=== PATIENT | female | born 1955 | race Caucasian/White ===

== ENCOUNTER → 2020-06-11 14:47 | Outpatient (CLI) | payer MEDICARE, OTHER, SELFPAY ==
[2020-06-11 15:30] LABS: Bacteria Urine None Seen; RBC Urine None Seen (0-5/HPF)
[2020-06-11 16:32] LABS: Appearance Urine UA CLEAR; Bilirubin Urine UA NEGATIVE (NEGATIVE); Color Urine UA YELLOW; Glucose Urine UA NEGATIVE (Negative); Ketones Urine UA NEGATIVE (NEGATIVE); Leukocyte Esterase Urine UA NEGATIVE (NEGATIVE); Nitrite Urine UA NEGATIVE (Negative); Occult Blood Urine UA NEGATIVE (Negative); Protein Urine UA NEGATIVE (Negative); Urobilinogen Urine UA 0.2 E.U./dL (0.2)
[2020-06-11 16:45] LABS: Culture Indicated Urine Cult Not Indicated; Squamous Epithelial Cell Urine 0-1 /HPF (0-5/HPF); WBC Urine 0-1/HPF (0-5/HPF)
[2020-06-11 16:48] LABS: Add Manual Diff / Slide Review NO; Basophils Absolute Auto 100 /uL (0-100); Basophils Percent Auto 1.9 % (0-2); Eosinophils Absolute Auto 0 /uL (0-450); Eosinophils Percent Auto 0.7 % (2-4); Hematocrit 37.1 % (36-46); Hemoglobin 12.4 g/dL (12.0-16.0); Lymphocytes Absolute Auto 1000 /uL (1100-4500); Lymphocytes Percent Auto 18.6 % (25-40); Mean Corpuscular HGB Conc 33.6 % (30-36); Mean Corpuscular Hemoglobin 30.1 PG (26-34); Mean Corpuscular Volume 89.8 fL (80-100); Monocytes Absolute Auto 300 /uL (0-900); Monocytes Percent Auto 5.3 % (3-14); Neutrophils Absolute Auto 3900 /uL (1500-7000); Neutrophils Percent Auto 73.5 % (50-75); Platelet Count 188 X10^3/uL (150-400); Red Blood Cell Count 4.13 X10^6/uL (4.0-5.2); Red Cell Distribution Width 12.8 % (11.6-14.8); White Blood Cell Count 5.3 X10^3/uL (4.5-11.0)
[2020-06-11 17:28] LABS: Alanine Aminotransferase 22 IU/L (<35); Albumin 4.5 g/dL (3.5-5.0); Albumin Globulin Ratio 1.5 (1.0-2.8); Alkaline Phosphatase 52 U/L (38-126); Aspartate Aminotransferase 30 IU/L (14-36); BUN Creatinine Ratio 24.6 (6-22); Bilirubin Total 0.5 mg/dL (0.2-1.3); Blood Urea Nitrogen 16 mg/dL (7-17); Calcium 9.9 mg/dL (8.4-10.2); Carbon Dioxide 35 mmol/L (22-32); Chloride 103 mmol/L (98-107); Cholesterol 206 mg/dL (140-199); Estimated Glomerular Filt Rate > 60.0 mL/min (>60); Glucose 91 mg/dL (80-110); HDL Cholesterol 72 mg/dL (40-60); HEMOLYSIS < 15 (0-50); LDL Cholesterol Calculated 116 mg/dL (<100); Potassium 4.5 mmol/L (3.4-5.1); Sodium 139 mmol/L (137-145); Total Protein 7.5 g/dL (6.3-8.2); Triglycerides 89 mg/dL (35-150)
== END ==
PROVIDERS: PCP Family Medicine; Referring Provider Family Medicine; Visit Provider Family Medicine
DX: Z13.220 Encounter for screening for lipoid disorders (principal); G20 Parkinson's disease; R25.2 Cramp and spasm; R35.8 Other polyuria
CPT/HCPCS: 36415; 80053; 80061; 81001; 85025

== ENCOUNTER → 2020-07-17 15:05 | Outpatient (CLI) | payer MEDICARE, OTHER, SELFPAY ==
--- NOTE | 2020-07-17 15:07 | DI.MG.S_ITS ---
BILATERAL DIGITAL SCREENING MAMMOGRAM 3D/2D WITH CAD: 07/17/2020 CLINICAL: Routine screening. Comparison is made to exams dated: 05/19/2017 mammogram, 06/17/2018 mammogram, and 10/06/2014 mammogram - outside location. The tissue of both breasts is heterogeneously dense. This may lower the sensitivity of mammography. Current study was also evaluated with a Computer Aided Detection (CAD) system. No significant masses, calcifications, or other findings are seen in either breast. There has been no significant interval change. IMPRESSION: NEGATIVE There is no mammographic evidence of malignancy. A 1 year screening mammogram is recommended. This exam was interpreted at Station ID: [id number]. NOTE: For mammograms, a report in lay terms will be sent to the patient. Approximately 15% of breast malignancies will not be visualized mammographically. In the management of a palpable breast mass, a negative mammogram must not discourage biopsy of a clinically suspicious lesion. Electronically Signed By: Ki alicea/levi:07/17/2020 15:46:07 letter sent: Normal Exam ACR BI-RADS Category 1: Negative [id number]
== END ==
PROVIDERS: PCP Family Medicine; Referring Provider Family Medicine; Visit Provider Family Medicine
DX: Z12.31 Encounter for screening mammogram for malignant neoplasm of breast (principal); Z78.0 Asymptomatic menopausal state; Z82.62 Family history of osteoporosis
CPT/HCPCS: 77063; 77067; 77080

== ENCOUNTER → 2020-07-24 15:26 | Outpatient (CLI) | payer MEDICARE, OTHER, SELFPAY ==
[2020-07-24] MEDS: COVID-19 VACC #1, MRNA(MOD) 100 MCG/0.5 ML VIAL IM (15:34)
== END ==
PROVIDERS: PCP Family Medicine; Visit Provider Internal Medicine
DX: Z23 Encounter for immunization (principal)
CPT/HCPCS: 0011A; 91301

== ENCOUNTER → 2020-08-21 15:41 | Outpatient (CLI) | payer MEDICARE, OTHER, SELFPAY ==
[2020-08-21] MEDS: COVID-19 VACC #2, MRNA(MOD) 100 MCG/0.5 ML VIAL IM (15:47)
== END ==
PROVIDERS: PCP Family Medicine; Visit Provider Internal Medicine
DX: Z23 Encounter for immunization (principal)
CPT/HCPCS: 0012A; 91301

== ENCOUNTER 2020-09-06 14:15 | Outpatient (RCR) | payer MEDICARE, OTHER, SELFPAY ==
--- NOTE | 2020-07-30 15:48 | PT.OIE ---
Current Diagnoses Parkinson's disease (07/30/20) Past Medical History (Last Updated 07/23/20 @ 16:55 by Lindy Nolasco DO) Anemia Cataracts, bilateral (~2009) Chicken pox Chlamydia Chronic hip pain (~2013) Colon polyps (~1999) Gonorrhea Headache Hearing loss (~2009) Herpes History of urinary incontinence (~2017) Plantar warts Restless leg syndrome Salzmann nodular degeneration Sleep apnea Vertigo (~2018) Vision disorder Visit Care Team Role Provider Type Lindy Nolasco DO Primary Care Provider Physician Specialty: Family Practice Address: [address] [place] [address], [facility] [place], [address] Email: [email or web address] Anastasiya Patel DO Attending Provider Non-Staff Referring Provider Specialty: Psychiatry Address: [address] [place] [address], [id number] Email: Physical Therapy Initial Evaluation PT-OP-A Visit Information Start: 07/27/20 16:14 Freq: Status: Active Protocol: Document 07/30/20 14:27 MB (Rec: 07/30/20 14:23 MB [id number]) Out-Patient Physical Therapy Visit Information Visit Information Visit Type Initial Evaluation Visit Note Medicare, 19 visits before KX Visit Start Time 14:27 Visit Stop Time 15:19 Total Visit Minutes 52 Visit Number 1 Evaluation Information Evaluation Date 07/30/20 PT-OP-B Current Condition Start: 07/27/20 16:14 Freq: Status: Active Protocol: Document 07/30/20 14:27 MB (Rec: 07/30/20 14:23 MB [id number]) Current Condition History of Current Condition Onset Date 2014 Current Complaints Right arm tremor, imbalance, decreased mental clarity, moving slowly History of Current Condition 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 Pt reports first symptoms was right arm shaking when typing. She gets cold easily. She lists her initial symptoms of PD were tremors, gait, small handwriting, balance when tested. 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 She feels like she occ spins. Pt states that she gets a lot of neck tension because she is cold a lot. Pt reports left hip pain. Pt takes Carbidopa Levodopa 3x/day. She states that her medication decreases her tremor and helps with mind clarity. Pt lives with a house mate. She has two steps and 1 rail rail to enter. She likes walking for exercise. She does better if she has a destination or someone to walk with. She feels like she gets winded easily. She likes to hike occasionally. Pt has not had any falls. Treatment Goals Patient/Caregiver Goals Pt's goals for therapy include discovering exercises to keep PD at bay. Prior Functional Status Baseline Function- ADL's Independent Baseline Function- Mobility Independent PT-OP-C Subjective Start: 07/27/20 16:14 Freq: Status: Active Protocol: Document 07/30/20 14:27 MB (Rec: 07/30/20 14:44 MB [id number]) OP-PT Subjective Patient Comments Patient Comments See history of current condition PT-OP-D Balance Start: 07/27/20 16:14 Freq: Status: Active Protocol: Document 07/30/20 14:27 MB (Rec: 07/30/20 15:47 MB [id number]) Balance Tests Other Other Balance Tests Performed See below for balance testing today PT-OP-G Mobility & Gait Start: 07/27/20 16:14 Freq: Status: Active Protocol: Document 07/30/20 14:27 MB (Rec: 07/30/20 15:47 MB [id number]) OP Gait Assessment Gait Gait Assistance Required: Independent Distance (Feet) 1,574 Able to Maintain Weight Bearing Status Yes During Gait Assistive Devices Assistive Device None Orthotic/Prosthetic Devices or Brace: No Gait Deviations General Gait Pattern Decreased Stride Length Comments Gait Comments Pt presents with decreased stride length and right greater than left UE movement with gait. Her meagan slows with cognitive task PT-OP-M Strength Start: 07/27/20 16:14 Freq: Status: Active Protocol: Document 07/30/20 14:27 MB (Rec: 07/30/20 15:47 MB [id number]) Shoulder Strength Shoulder Manual Muscle Testing Left Flexion 5 Normal Abduction (C5) 5 Normal Right Flexion 5 Normal Abduction (C5) 5 Normal Elbow/Forearm Strength Elbow and Forearm Manual Muscle Testing Left Flexion (C6) 5 Normal Extension (C7) 5 Normal Right Flexion (C6) 5 Normal Extension (C7) 5 Normal Hip Strength Hip Manual Muscle Testing Left Flexion (L2) 5 Normal Comments Pt sitting Right Flexion (L2) 5 Normal Comments Pt sitting Knee Strength Knee Manual Muscle Testing Left Flexion (S2) 5 Normal Extension (L3) 5 Normal Right Flexion (S2) 5 Normal Extension (L3) 5 Normal Ankle/Foot Strength Ankle and Foot Manual Muscle Testing Left Dorsiflexion (L4) 5 Normal Right Dorsiflexion (L4) 5 Normal PT-OP-Q Treatments Start: 07/27/20 16:14 Freq: Status: Active Protocol: Document 07/30/20 14:27 MB (Rec: 07/30/20 14:23 MB [id number]) Gait Training Gait Activity 6MWT Comments Pt gait trains 1574 ft in 6', which is 262.33 ft per minute Pt gait trains 245 ft in 1' performing cognitive tasks of subtracting by 3s from 100 which is too hard, then subtracting 5s, too easy, then adding by 7 which is pretty easy for pt Pt gait trains 272 ft in 1' while holding cup of water in right hand. Did have to have pt take a sip d/t spilling at start Overall, looks like cognitive task and increased gait time are more challenging for gait speed Neuro Re-Education Treatment Balance Activities SLS and sit to stands Comments Romberg EO and EC at least 30 sec Tandem standing right behind 25 sec and left 2 sec SLS right 17 sec; left 25 sec Sit to stands without UE support in 30 sec: 19 Self-Care/Home Management Treatment Education Other Education Ed pt in BIG treatment course (16 one hour treatments) and team, homework of finding functional tasks to set as goals, exercise requirements for BIG, focus on amplitude and quality of movement and exercises PT-OP-T Assessment and Plan Start: 07/27/20 16:14 Freq: Status: Active Protocol: Document 07/30/20 14:27 MB (Rec: 07/30/20 14:23 MB [id number]) Physical Therapy Assessment Rehab Potential Rehabilitation Potential Good Evaluation Complexity Number of Personal Factors/Comorbidities 1-2 Number of Body Systems Impaired 1-2 Clinical Presentation at Evaluation Evolving Impairments Impairments Balance,Functional Activities, Functional Mobility,Gait, Posture Goals 4 Head Animal Trainer Goal (LTG) Pt will perform WNLs on a standardized balance test to decrease fall risk by 08/30/20. LTG Duration 16 treatments 3 Care Home Goal (LTG) Pt will perform BIG exercises and functional tasks BID with handouts and I to improve amplitude and quality of movement by 08/30/20. LTG Duration 16 treatments 2 Head Animal Trainer Goal (LTG) Pt will gait train at least 1600 feet in 6 minutes with cognitive task intermittently to improve gait speed and endurance by 08/30/20. LTG Duration 16 treatments 1 Head Animal Trainer Goal (LTG) Pt will perform at least 20 reps of sit to stands without UE support in 30 sec to improve functional transfers by 08/30/20. LTG Duration 16 treatments Assessment Summary Assessment Pt is a 64 y/o female presenting with over 6 year history of PD symptoms. Her biggest complaints are right UE tremor, decreased mental clarity, imbalance and slow gait. Pt also reports trouble opening tight jars. 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 She takes Carbidopa Levodopa TID with a dose at 1330. Her PT appointments will be from 141 -151. Pt reports occ dizziness and light-headedness . Orthostatic assessment: L UE supine: 132/69, 68; standing 100/67, 84; standing 1' 108/74 , 87. Pt presents with positive orthostasis and provided education and handouts to pt. Her gait speed is quick and with decreased stride length and right greater than left arm swing. Her gait speed is the same when carrying a cup of water with water 3/4 from the top of the cup. Her gait speed decreases with cognitive task and so pt will benefit from BIG walking with cognitive task. She presents with imbalance with balance testing and mild B shoulder weakness. Pt will benefit from BIG PT to improve postural flexibility, functional mobility and gait amplitude, and balance. Barriers include orthostasis. Pt is soft-spoken and states that she is not yet able to make her schedule work to do LOUD therapy but she is interested for this in the future. Physical Therapy Plan Frequency and Duration Frequency of Treatment 16 treatments Duration of Treatment 16 treatments Plan of Care Start Date 07/30/20 Plan of Care End Date 08/30/20 Therapeutic Interventions Therapeutic Interventions Balance Training,Canalithic Repositioning,Coordination Training,Gait Training,Home Exercise Program,Neuromuscular Re-education,Patient/ Caregiver Education,Self-Care/ Home Management,Sensory Integration,Therapeutic Activities,Therapeutic Exercises Modalities Cold Pack/Ice Massage,Hot Packs Next Visit Focus/Plan Next Note Type Treatment Note Next Visit Plan Initiate BIG exercises, check orthostatics as needed, come up with functional tasks to work on
--- NOTE | 2020-07-30 15:49 | PT.OPPOC ---
Physical, Occupational & Speech Therapy At [facility] Current Diagnoses Parkinson's disease (07/30/20) Visit Care Team Role Provider Type Lindy Nolasco DO Primary Care Provider Physician Specialty: Family Practice Address: [address] [place] [address], [facility], [place], [address] Email: [email or web address] Anastasiya Patel DO Attending Provider Non-Staff Referring Provider Specialty: Psychiatry Address: [address] [place] [address], [id number] Email: Plan Of Care PT-OP-T Assessment and Plan Start: 07/27/20 16:14 Freq: Status: Active Protocol: Document 07/30/20 14:27 MB (Rec: 07/30/20 14:23 MB [id number]) Physical Therapy Assessment Rehab Potential Rehabilitation Potential Good Evaluation Complexity Number of Personal Factors/Comorbidities 1-2 Number of Body Systems Impaired 1-2 Clinical Presentation at Evaluation Evolving Impairments Impairments Balance,Functional Activities, Functional Mobility,Gait, Posture Goals 4 Buckle Stapler Goal (LTG) Pt will perform WNLs on a standardized balance test to decrease fall risk by 08/30/20. LTG Duration 16 treatments 3 Snf Goal (LTG) Pt will perform BIG exercises and functional tasks BID with handouts and I to improve amplitude and quality of movement by 08/30/20. LTG Duration 16 treatments 2 Buckle Stapler Goal (LTG) Pt will gait train at least 1600 feet in 6 minutes with cognitive task intermittently to improve gait speed and endurance by 08/30/20. LTG Duration 16 treatments 1 Snf Goal (LTG) Pt will perform at least 20 reps of sit to stands without UE support in 30 sec to improve functional transfers by 08/30/20. LTG Duration 16 treatments Assessment Summary Assessment Pt is a 64 y/o female presenting with over 6 year history of PD symptoms. Her biggest complaints are right UE tremor, decreased mental clarity, imbalance and slow gait. Pt also reports trouble opening tight jars. 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 She takes Carbidopa Levodopa TID with a dose at 1330. Her PT appointments will be from 1415 -1515. Pt reports occ dizziness and light-headedness . Orthostatic assessment: L UE supine: 132/69, 68; standing 100/67, 84; standing 1' 108/74 , 87. Pt presents with positive orthostasis and provided education and handouts to pt. Her gait speed is quick and with decreased stride length and right greater than left arm swing. Her gait speed is the same when carrying a cup of water with water 3/4 from the top of the cup. Her gait speed decreases with cognitive task and so pt will benefit from BIG walking with cognitive task. She presents with imbalance with balance testing and mild B shoulder weakness. Pt will benefit from BIG PT to improve postural flexibility, functional mobility and gait amplitude, and balance. Barriers include orthostasis. Pt is soft-spoken and states that she is not yet able to make her schedule work to do LOUD therapy but she is interested for this in the future. Physical Therapy Plan Frequency and Duration Frequency of Treatment 16 treatments Duration of Treatment 16 treatments Plan of Care Start Date 07/30/20 Plan of Care End Date 08/30/20 Therapeutic Interventions Therapeutic Interventions Balance Training,Canalithic Repositioning,Coordination Training,Gait Training,Home Exercise Program,Neuromuscular Re-education,Patient/ Caregiver Education,Self-Care/ Home Management,Sensory Integration,Therapeutic Activities,Therapeutic Exercises Modalities Cold Pack/Ice Massage,Hot Packs Next Visit Focus/Plan Next Note Type Treatment Note Next Visit Plan Initiate BIG exercises, check orthostatics as needed, come up with functional tasks to work on Plan of Care Dates Plan of Care Start Date 07/30/20 Plan of Care End Date 08/30/20 Electronically Signed by: Rosalia Davila, PT 07/30/20 [id number] Please Sign and Return: I have reviewed this Plan of Care and certify that the skilled therapy services above are required to meet the patient?s needs. Physician Signature Date Printed Name and Credentials Clinical Instructor Signature Printed Name and Credentials
--- NOTE | 2020-07-31 15:26 | PT.OTN ---
Current Diagnoses Parkinson's disease (07/31/20) Physical Therapy Treatment Note PT-OP-A Visit Information Start: 07/27/20 16:14 Freq: Status: Active Protocol: Document 07/31/20 14:16 MB (Rec: 07/31/20 14:25 MB [id number]) Out-Patient Physical Therapy Visit Information Visit Information Visit Type Treatment Note Visit Note Medicare, 18 visits before KX Visit Start Time 14:16 Visit Stop Time 15:13 Total Visit Minutes 57 Visit Number 2 PT-OP-B Current Condition Start: 07/27/20 16:14 Freq: Status: Active Protocol: Document 07/30/20 14:27 MB (Rec: 07/30/20 14:23 MB [id number]) Current Condition History of Current Condition Onset Date 2014 Current Complaints Right arm tremor, imbalance, decreased mental clarity, moving slowly History of Current Condition 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 Pt reports first symptoms was right arm shaking when typing. She gets cold easily. She lists her initial symptoms of PD were tremors, gait, small handwriting, balance when tested. 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 She feels like she occ spins. Pt states that she gets a lot of neck tension because she is cold a lot. Pt reports left hip pain. Pt takes Carbidopa Levodopa 3x/day. She states that her medication decreases her tremor and helps with mind clarity. Pt lives with a house mate. She has two steps and 1 rail rail to enter. She likes walking for exercise. She does better if she has a destination or someone to walk with. She feels like she gets winded easily. She likes to hike occasionally. Pt has not had any falls. Treatment Goals Patient/Caregiver Goals Pt's goals for therapy include discovering exercises to keep PD at bay. Prior Functional Status Baseline Function- ADL's Independent Baseline Function- Mobility Independent PT-OP-C Subjective Start: 07/27/20 16:14 Freq: Status: Active Protocol: Document 07/31/20 14:16 MB (Rec: 07/31/20 14:25 MB [id number]) OP-PT Subjective Patient Comments Patient Comments Pt brings in functional tasks. PT-OP-D Balance Start: 07/27/20 16:14 Freq: Status: Active Protocol: Document 07/30/20 14:27 MB (Rec: 07/30/20 15:47 MB [id number]) Balance Tests Other Other Balance Tests Performed See below for balance testing today PT-OP-G Mobility & Gait Start: 07/27/20 16:14 Freq: Status: Active Protocol: Document 07/30/20 14:27 MB (Rec: 07/30/20 15:47 MB [id number]) OP Gait Assessment Gait Gait Assistance Required: Independent Distance (Feet) 1,574 Able to Maintain Weight Bearing Status Yes During Gait Assistive Devices Assistive Device None Orthotic/Prosthetic Devices or Brace: No Gait Deviations General Gait Pattern Decreased Stride Length Comments Gait Comments Pt presents with decreased stride length and right greater than left UE movement with gait. Her meagan slows with cognitive task PT-OP-M Strength Start: 07/27/20 16:14 Freq: Status: Active Protocol: Document 07/30/20 14:27 MB (Rec: 07/30/20 15:47 MB [id number]) Shoulder Strength Shoulder Manual Muscle Testing Left Flexion 5 Normal Abduction (C5) 5 Normal Right Flexion 5 Normal Abduction (C5) 5 Normal Elbow/Forearm Strength Elbow and Forearm Manual Muscle Testing Left Flexion (C6) 5 Normal Extension (C7) 5 Normal Right Flexion (C6) 5 Normal Extension (C7) 5 Normal Hip Strength Hip Manual Muscle Testing Left Flexion (L2) 5 Normal Comments Pt sitting Right Flexion (L2) 5 Normal Comments Pt sitting Knee Strength Knee Manual Muscle Testing Left Flexion (S2) 5 Normal Extension (L3) 5 Normal Right Flexion (S2) 5 Normal Extension (L3) 5 Normal Ankle/Foot Strength Ankle and Foot Manual Muscle Testing Left Dorsiflexion (L4) 5 Normal Right Dorsiflexion (L4) 5 Normal PT-OP-Q Treatments Start: 07/27/20 16:14 Freq: Status: Active Protocol: Document 07/31/20 14:16 MB (Rec: 07/31/20 15:26 MB [id number]) Therapeutic Exercises Sitting Exercises BIG sit to stands Equipment Used Pt sitting on mat in treatment room Reps/Minutes 6 reps Comments Cues for exercise and arm position Side to side Side bilateral Equipment Used Pt sitting on mat in treatment room Reps/Minutes 5 reps Comments Cues for BIG reach with right leg > left, BIG hands Forward reach Equipment Used Pt sitting on mat in treatment room Reps/Minutes 6 reps Comments Cues for form, BIG hands Standing Exercises Side rock and reach Side bilateral Reps/Minutes 5 reps Comments Most difficulty with this, cues for BIG chest, keep arms up and even, pivot Forward rock and reach Side bilateral Reps/Minutes 10 reps Comments Cues for BIG reach/arm swing, more difficult on the right Backward step Side bilateral Reps/Minutes 5 reps Comments Cues for all movements, BIG hands, BIG front toe, more difficult on right Side step Side bilateral Reps/Minutes 10 reps Comments Cues to look towards side stepping towards Forward step Side bilateral Reps/Minutes 10 reps Comments Cues to start BIG feet and finish BIG, tends to lack full step back Gait Training Gait Activity BIG walking Level of Assistance SBA Surface Pavement, parking lot, side walk, curb Distance/Duration 10' Treatment Focus BIG arm swing Comments Paused to practice BIG arm swing, pt tends to walk very stiff and robotic in nature when asked to make BIG steps and arm swings. She stops swinging her arms completely when she starts to talk. PT-OP-T Assessment and Plan Start: 07/27/20 16:14 Freq: Status: Active Protocol: Document 07/31/20 14:16 MB (Rec: 07/31/20 14:25 MB [id number]) Physical Therapy Assessment Rehab Potential Rehabilitation Potential Good Evaluation Complexity Number of Personal Factors/Comorbidities 1-2 Number of Body Systems Impaired 1-2 Clinical Presentation at Evaluation Evolving Impairments Impairments Balance,Functional Activities, Functional Mobility,Gait, Posture Goals 4 Organ Assembler Goal (LTG) Pt will perform WNLs on a standardized balance test to decrease fall risk by 08/30/20. LTG Duration 16 treatments 3 Alf Goal (LTG) Pt will perform BIG exercises and functional tasks BID with handouts and I to improve amplitude and quality of movement by 08/30/20. LTG Duration 16 treatments 2 Organ Assembler Goal (LTG) Pt will gait train at least 1600 feet in 6 minutes with cognitive task intermittently to improve gait speed and endurance by 08/30/20. LTG Duration 16 treatments 1 Organ Assembler Goal (LTG) Pt will perform at least 20 reps of sit to stands without UE support in 30 sec to improve functional transfers by 08/30/20. LTG Duration 16 treatments Assessment Summary Assessment Initiated BIG exercises and gait today. Pt presents with decreased BIG right leg with side to side sitting, decreased BIG right arm with swing with gait and rock and reach and has trouble with rock side to side. Initiate gait with assist of two sticks to improve BIG arm swing with gait next treatment date, perform BIG exercises and initiate functional tasks. Physical Therapy Plan Frequency and Duration Frequency of Treatment 16 treatments Duration of Treatment 16 treatments Plan of Care Start Date 07/30/20 Plan of Care End Date 08/30/20 Therapeutic Interventions Therapeutic Interventions Balance Training,Canalithic Repositioning,Coordination Training,Gait Training,Home Exercise Program,Neuromuscular Re-education,Patient/ Caregiver Education,Self-Care/ Home Management,Sensory Integration,Therapeutic Activities,Therapeutic Exercises Modalities Cold Pack/Ice Massage,Hot Packs Next Visit Focus/Plan Next Note Type Treatment Note Next Visit Plan Initiate gait with PT holding two sticks behind pt holding the sticks to improve arm swing with gait. Initiate functional tasks such as donning and doffing gloves, circular motions for bathing, chopping, flipping sheets and handwriting. Start BIG walking and check orthostatics as needed
--- NOTE | 2020-08-01 17:25 | PT.OTN ---
Current Diagnoses Parkinson's disease (08/01/20) Physical Therapy Treatment Note PT-OP-A Visit Information Start: 07/27/20 16:14 Freq: Status: Active Protocol: Document 08/01/20 17:14 AW (Rec: 08/01/20 17:25 AW [email or web address]) Out-Patient Physical Therapy Visit Information Visit Information Visit Type Treatment Note Visit Note Medicare, 17 visits before KX Visit Start Time 14:15 Visit Stop Time 15:15 Total Visit Minutes 60 Visit Number 3 Evaluation Information Evaluation Date 07/30/20 PT-OP-B Current Condition Start: 07/27/20 16:14 Freq: Status: Active Protocol: Document 07/30/20 14:27 MB (Rec: 07/30/20 14:23 MB [id number]) Current Condition History of Current Condition Onset Date 2014 Current Complaints Right arm tremor, imbalance, decreased mental clarity, moving slowly History of Current Condition 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 Pt reports first symptoms was right arm shaking when typing. She gets cold easily. She lists her initial symptoms of PD were tremors, gait, small handwriting, balance when tested. 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 She feels like she occ spins. Pt states that she gets a lot of neck tension because she is cold a lot. Pt reports left hip pain. Pt takes Carbidopa Levodopa 3x/day. She states that her medication decreases her tremor and helps with mind clarity. Pt lives with a house mate. She has two steps and 1 rail rail to enter. She likes walking for exercise. She does better if she has a destination or someone to walk with. She feels like she gets winded easily. She likes to hike occasionally. Pt has not had any falls. Treatment Goals Patient/Caregiver Goals Pt's goals for therapy include discovering exercises to keep PD at bay. Prior Functional Status Baseline Function- ADL's Independent Baseline Function- Mobility Independent PT-OP-C Subjective Start: 07/27/20 16:14 Freq: Status: Active Protocol: Document 08/01/20 17:14 AW (Rec: 08/01/20 17:25 AW [email or web address]) OP-PT Subjective Patient Comments Patient Comments I'm a little sore but I think that's a good thing. PT-OP-D Balance Start: 01/29/21 16:14 Freq: Status: Active Protocol: Document 07/30/20 14:27 MB (Rec: 07/30/20 15:47 MB [id number]) Balance Tests Other Other Balance Tests Performed See below for balance testing today PT-OP-G Mobility & Gait Start: 07/27/20 16:14 Freq: Status: Active Protocol: Document 07/30/20 14:27 MB (Rec: 07/30/20 15:47 MB [id number]) OP Gait Assessment Gait Gait Assistance Required: Independent Distance (Feet) 1,574 Able to Maintain Weight Bearing Status Yes During Gait Assistive Devices Assistive Device None Orthotic/Prosthetic Devices or Brace: No Gait Deviations General Gait Pattern Decreased Stride Length Comments Gait Comments Pt presents with decreased stride length and right greater than left UE movement with gait. Her meagan slows with cognitive task PT-OP-M Strength Start: 07/27/20 16:14 Freq: Status: Active Protocol: Document 07/30/20 14:27 MB (Rec: 07/30/20 15:47 MB [id number]) Shoulder Strength Shoulder Manual Muscle Testing Left Flexion 5 Normal Abduction (C5) 5 Normal Right Flexion 5 Normal Abduction (C5) 5 Normal Elbow/Forearm Strength Elbow and Forearm Manual Muscle Testing Left Flexion (C6) 5 Normal Extension (C7) 5 Normal Right Flexion (C6) 5 Normal Extension (C7) 5 Normal Hip Strength Hip Manual Muscle Testing Left Flexion (L2) 5 Normal Comments Pt sitting Right Flexion (L2) 5 Normal Comments Pt sitting Knee Strength Knee Manual Muscle Testing Left Flexion (S2) 5 Normal Extension (L3) 5 Normal Right Flexion (S2) 5 Normal Extension (L3) 5 Normal Ankle/Foot Strength Ankle and Foot Manual Muscle Testing Left Dorsiflexion (L4) 5 Normal Right Dorsiflexion (L4) 5 Normal PT-OP-Q Treatments Start: 07/27/20 16:14 Freq: Status: Active Protocol: Document 08/01/20 17:14 AW (Rec: 08/01/20 17:25 AW [email or web address]) Therapeutic Exercises Sitting Exercises BIG sit to stands Equipment Used large black tx table Reps/Minutes 6 reps x 3 Comments cues for BIG forward lean Side to side Side bilateral Equipment Used large black tx table Reps/Minutes 5 reps each side Comments cues for increased effort Forward reach Equipment Used large black tx table Reps/Minutes 10 reps Comments Cues for form, BIG hands Standing Exercises Side rock and reach Side bilateral Reps/Minutes 10 reps Comments cued for BIG open arms, chest up throughout Forward rock and reach Side bilateral Reps/Minutes 10 reps Comments cued for big arm as L lagged Backward step Side bilateral Reps/Minutes 5 reps Comments cued for BIG weight shift and bwd arm swing Side step Side bilateral Reps/Minutes 10 reps Comments cues to fully rotate back to start position Forward step Side bilateral Reps/Minutes 10 reps Comments Cues to start BIG feet and finish BIG, tends to lack full step back Gait Training Gait Activity BIG walking Level of Assistance SBA Surface Pavement, parking lot, side walk, curb Distance/Duration 20 min Treatment Focus BIG arm swing Comments Pt has functionally longer RLE and tends to vault over. She is able to produce bigger arm swing with frequent cueing but loses it with any change in surface or distraction. Used meter sticks behind as external cue for arm swing and pt able to replicate without sticks up to 100 feet. Self-Care/Home Management Treatment Education Other Education Educated pt on sensory mismatch between perceived movement and actual/produced movement. PT-OP-T Assessment and Plan Start: 07/27/20 16:14 Freq: Status: Active Protocol: Document 08/01/20 17:14 AW (Rec: 08/01/20 17:25 AW [email or web address]) Physical Therapy Assessment Rehab Potential Rehabilitation Potential Good Evaluation Complexity Number of Personal Factors/Comorbidities 1-2 Number of Body Systems Impaired 1-2 Clinical Presentation at Evaluation Evolving Impairments Impairments Balance,Functional Activities, Functional Mobility,Gait, Posture Goals 4 Intermediate Goal (LTG) Pt will perform WNLs on a standardized balance test to decrease fall risk by 08/30/20. LTG Duration 16 treatments 3 Pin Sticker Goal (LTG) Pt will perform BIG exercises and functional tasks BID with handouts and I to improve amplitude and quality of movement by 08/30/20. LTG Duration 16 treatments 2 Intermediate Goal (LTG) Pt will gait train at least 1600 feet in 6 minutes with cognitive task intermittently to improve gait speed and endurance by 08/30/20. LTG Duration 16 treatments 1 Pin Sticker Goal (LTG) Pt will perform at least 20 reps of sit to stands without UE support in 30 sec to improve functional transfers by 08/30/20. LTG Duration 16 treatments Assessment Summary Assessment Reviewed exercises today and observed unprompted self- correction in terms of posture or arm position on several occasions. Pt does show good stimulabilty but may require additional external cueing for gait training before fading cues for calibration. Physical Therapy Plan Frequency and Duration Frequency of Treatment 16 treatments Duration of Treatment 16 treatments Plan of Care Start Date 07/30/20 Plan of Care End Date 08/30/20 Therapeutic Interventions Therapeutic Interventions Balance Training,Canalithic Repositioning,Coordination Training,Gait Training,Home Exercise Program,Neuromuscular Re-education,Patient/ Caregiver Education,Self-Care/ Home Management,Sensory Integration,Therapeutic Activities,Therapeutic Exercises Modalities Cold Pack/Ice Massage,Hot Packs Next Visit Focus/Plan Next Note Type Treatment Note Next Visit Plan Initiate functional tasks such as donning and doffing gloves , circular motions for bathing , chopping, flipping sheets and handwriting. Start BIG walking and check orthostatics as needed
--- NOTE | 2020-08-02 15:30 | PT.OTN ---
Current Diagnoses Parkinson's disease (08/02/20) Physical Therapy Treatment Note PT-OP-A Visit Information Start: 07/27/20 16:14 Freq: Status: Active Protocol: Document 08/02/20 14:15 MB (Rec: 08/02/20 15:35 MB [id number]) Out-Patient Physical Therapy Visit Information Visit Information Visit Type Treatment Note Visit Note Medicare, 16 visits before KX Visit Start Time 14:15 Visit Stop Time 15:15 Total Visit Minutes 60 Visit Number 4 PT-OP-B Current Condition Start: 07/27/20 16:14 Freq: Status: Active Protocol: Document 07/30/20 14:27 MB (Rec: 07/30/20 14:23 MB [id number]) Current Condition History of Current Condition Onset Date 2014 Current Complaints Right arm tremor, imbalance, decreased mental clarity, moving slowly History of Current Condition 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 Pt reports first symptoms was right arm shaking when typing. She gets cold easily. She lists her initial symptoms of PD were tremors, gait, small handwriting, balance when tested. 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 She feels like she occ spins. Pt states that she gets a lot of neck tension because she is cold a lot. Pt reports left hip pain. Pt takes Carbidopa Levodopa 3x/day. She states that her medication decreases her tremor and helps with mind clarity. Pt lives with a house mate. She has two steps and 1 rail rail to enter. She likes walking for exercise. She does better if she has a destination or someone to walk with. She feels like she gets winded easily. She likes to hike occasionally. Pt has not had any falls. Treatment Goals Patient/Caregiver Goals Pt's goals for therapy include discovering exercises to keep PD at bay. Prior Functional Status Baseline Function- ADL's Independent Baseline Function- Mobility Independent PT-OP-C Subjective Start: 07/27/20 16:14 Freq: Status: Active Protocol: Document 08/02/20 14:15 MB (Rec: 08/02/20 15:35 MB [id number]) OP-PT Subjective Patient Comments Patient Comments Okay. Pt states that she hasn't watched the [employer] BIG video yet PT-OP-D Balance Start: 07/27/20 16:14 Freq: Status: Active Protocol: Document 07/30/20 14:27 MB (Rec: 07/30/20 15:47 MB [id number]) Balance Tests Other Other Balance Tests Performed See below for balance testing today PT-OP-G Mobility & Gait Start: 07/27/20 16:14 Freq: Status: Active Protocol: Document 07/30/20 14:27 MB (Rec: 07/30/20 15:47 MB [id number]) OP Gait Assessment Gait Gait Assistance Required: Independent Distance (Feet) 1,574 Able to Maintain Weight Bearing Status Yes During Gait Assistive Devices Assistive Device None Orthotic/Prosthetic Devices or Brace: No Gait Deviations General Gait Pattern Decreased Stride Length Comments Gait Comments Pt presents with decreased stride length and right greater than left UE movement with gait. Her meagan slows with cognitive task PT-OP-M Strength Start: 07/27/20 16:14 Freq: Status: Active Protocol: Document 07/30/20 14:27 MB (Rec: 07/30/20 15:47 MB [id number]) Shoulder Strength Shoulder Manual Muscle Testing Left Flexion 5 Normal Abduction (C5) 5 Normal Right Flexion 5 Normal Abduction (C5) 5 Normal Elbow/Forearm Strength Elbow and Forearm Manual Muscle Testing Left Flexion (C6) 5 Normal Extension (C7) 5 Normal Right Flexion (C6) 5 Normal Extension (C7) 5 Normal Hip Strength Hip Manual Muscle Testing Left Flexion (L2) 5 Normal Comments Pt sitting Right Flexion (L2) 5 Normal Comments Pt sitting Knee Strength Knee Manual Muscle Testing Left Flexion (S2) 5 Normal Extension (L3) 5 Normal Right Flexion (S2) 5 Normal Extension (L3) 5 Normal Ankle/Foot Strength Ankle and Foot Manual Muscle Testing Left Dorsiflexion (L4) 5 Normal Right Dorsiflexion (L4) 5 Normal PT-OP-Q Treatments Start: 07/27/20 16:14 Freq: Status: Active Protocol: Document 08/02/20 14:15 MB (Rec: 08/02/20 15:35 MB [id number]) Therapeutic Exercises Sitting Exercises Side to side Side bilateral Equipment Used Treatment table in room Reps/Minutes 10 to each side, alternating Comments cues for BIG hands, fingers and right leg Forward reach Equipment Used Treatment table in room Reps/Minutes 10 reps Comments Cues to count LOUD each exercise number and then count LOUD Standing Exercises Side rock and reach Side bilateral Reps/Minutes 10 reps Comments Cues for BIG movement Forward rock and reach Side bilateral Reps/Minutes 10 reps Comments Cues to start BIG stance, BIG right arm Backward step Side bilateral Reps/Minutes 10 reps Comments Cues for BIG front toe Side step Side bilateral Reps/Minutes 10 reps Comments Cues to look towards direction standing Forward step Side bilateral Reps/Minutes 10 reps Comments Cues for BIG stance Therapeutic Activity Therapeutic Activity Making top sheet of bed on small mat table Reps/Minutes 5 minutes Comments PT demonstrates BIG movements, BIG steps from head of mat to foot of mat. Pt performs many reps with the following speeds: 10 sec, 9 sec, 14 sec (sheet not flat), 9 sec, 13 sec. Cues for BIG shake and BIG corners Wax on, wax off Reps/Minutes 2 minutes Comments Pt reports trouble washing stomach, circular motions. She has no trouble demonstrating this on self or on the wall today. She then describes using long handled scrubber. She may bring in for practice Donning and doffing gloves Reps/Minutes 5 minutes Comments Pt standing, cues for her to hold both gloves (she tends to want to have one resting on table). PT demonstrates BIG donning and doffing. She presents with the following times recorded for reps of donning and doffing both gloves: 14 sec, 14 sec, 11 sec , 10 sec, 10 sec, 10 sec, 10 sec. Improvement with repetitions Gait Training Gait Activity BIG walking Level of Assistance Superv and cues Surface Kimber and carpet Distance/Duration 15' Treatment Focus BIG arm swing, amy right Comments Pt presents with functional leg length difference. She responds better to PT holding yard sticks in front of her and she holding behind PT compared to pt being in front. She increases B arm extension as she pulls back on the yard sticks with therapist resisting in front. Pt is able to carryover larger arm swing after this training. She does con't to decrease arm swing when she talks with gait PT-OP-T Assessment and Plan Start: 07/27/20 16:14 Freq: Status: Active Protocol: Document 08/02/20 14:15 MB (Rec: 08/02/20 15:35 MB [id number]) Physical Therapy Assessment Rehab Potential Rehabilitation Potential Good Evaluation Complexity Number of Personal Factors/Comorbidities 1-2 Number of Body Systems Impaired 1-2 Clinical Presentation at Evaluation Evolving Impairments Impairments Balance,Functional Activities, Functional Mobility,Gait, Posture Goals 4 Balance Assembler Goal (LTG) Pt will perform WNLs on a standardized balance test to decrease fall risk by 08/30/20. LTG Duration 16 treatments 3 Retirement Goal (LTG) Pt will perform BIG exercises and functional tasks BID with handouts and I to improve amplitude and quality of movement by 08/30/20. LTG Duration 16 treatments 2 Balance Assembler Goal (LTG) Pt will gait train at least 1600 feet in 6 minutes with cognitive task intermittently to improve gait speed and endurance by 08/30/20. LTG Duration 16 treatments 1 Retirement Goal (LTG) Pt will perform at least 20 reps of sit to stands without UE support in 30 sec to improve functional transfers by 08/30/20. LTG Duration 16 treatments Assessment Summary Assessment Pt with improved awareness of BIG movement today and she is LOUDer with counting out loud for exercises. She does require cues for form and for BIG right arm with gait. She has better carryover once used yard sticks to provide tactile cues for arm swing with gait. Con't gait and functional activity progression. Alternating exercises seems to be difficult for pt today. Physical Therapy Plan Frequency and Duration Frequency of Treatment 16 treatments Duration of Treatment 16 treatments Plan of Care Start Date 07/30/20 Plan of Care End Date 08/30/20 Therapeutic Interventions Therapeutic Interventions Balance Training,Canalithic Repositioning,Coordination Training,Gait Training,Home Exercise Program,Neuromuscular Re-education,Patient/ Caregiver Education,Self-Care/ Home Management,Sensory Integration,Therapeutic Activities,Therapeutic Exercises Modalities Cold Pack/Ice Massage,Hot Packs Next Visit Focus/Plan Next Note Type Treatment Note Next Visit Plan Con't functional tasks donning and doffing gloves, circular motions for bathing, chopping, flipping sheets (perform on bigger mat) and handwriting. Check orthostatics as needed
--- NOTE | 2020-08-02 15:35 | PT.OTN ---
Current Diagnoses Parkinson's disease (08/02/20) Physical Therapy Treatment Note PT-OP-A Visit Information Start: 07/27/20 16:14 Freq: Status: Active Protocol: Document 08/02/20 14:15 MB (Rec: 08/02/20 15:35 MB [id number]) Out-Patient Physical Therapy Visit Information Visit Information Visit Type Treatment Note Visit Note Medicare, 16 visits before KX Visit Start Time 14:15 Visit Stop Time 15:15 Total Visit Minutes 60 Visit Number 4 PT-OP-B Current Condition Start: 07/27/20 16:14 Freq: Status: Active Protocol: Document 07/30/20 14:27 MB (Rec: 07/30/20 14:23 MB [id number]) Current Condition History of Current Condition Onset Date 2014 Current Complaints Right arm tremor, imbalance, decreased mental clarity, moving slowly History of Current Condition 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 Pt reports first symptoms was right arm shaking when typing. She gets cold easily. She lists her initial symptoms of PD were tremors, gait, small handwriting, balance when tested. 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 She feels like she occ spins. Pt states that she gets a lot of neck tension because she is cold a lot. Pt reports left hip pain. Pt takes Carbidopa Levodopa 3x/day. She states that her medication decreases her tremor and helps with mind clarity. Pt lives with a house mate. She has two steps and 1 rail rail to enter. She likes walking for exercise. She does better if she has a destination or someone to walk with. She feels like she gets winded easily. She likes to hike occasionally. Pt has not had any falls. Treatment Goals Patient/Caregiver Goals Pt's goals for therapy include discovering exercises to keep PD at bay. Prior Functional Status Baseline Function- ADL's Independent Baseline Function- Mobility Independent PT-OP-C Subjective Start: 07/27/20 16:14 Freq: Status: Active Protocol: Document 08/02/20 14:15 MB (Rec: 08/02/20 15:35 MB [id number]) OP-PT Subjective Patient Comments Patient Comments Okay. Pt states that she hasn't watched the [employer] BIG video yet PT-OP-D Balance Start: 07/27/20 16:14 Freq: Status: Active Protocol: Document 07/30/20 14:27 MB (Rec: 07/30/20 15:47 MB [id number]) Balance Tests Other Other Balance Tests Performed See below for balance testing today PT-OP-G Mobility & Gait Start: 07/27/20 16:14 Freq: Status: Active Protocol: Document 07/30/20 14:27 MB (Rec: 07/30/20 15:47 MB [id number]) OP Gait Assessment Gait Gait Assistance Required: Independent Distance (Feet) 1,574 Able to Maintain Weight Bearing Status Yes During Gait Assistive Devices Assistive Device None Orthotic/Prosthetic Devices or Brace: No Gait Deviations General Gait Pattern Decreased Stride Length Comments Gait Comments Pt presents with decreased stride length and right greater than left UE movement with gait. Her meagan slows with cognitive task PT-OP-M Strength Start: 07/27/20 16:14 Freq: Status: Active Protocol: Document 07/30/20 14:27 MB (Rec: 07/30/20 15:47 MB [id number]) Shoulder Strength Shoulder Manual Muscle Testing Left Flexion 5 Normal Abduction (C5) 5 Normal Right Flexion 5 Normal Abduction (C5) 5 Normal Elbow/Forearm Strength Elbow and Forearm Manual Muscle Testing Left Flexion (C6) 5 Normal Extension (C7) 5 Normal Right Flexion (C6) 5 Normal Extension (C7) 5 Normal Hip Strength Hip Manual Muscle Testing Left Flexion (L2) 5 Normal Comments Pt sitting Right Flexion (L2) 5 Normal Comments Pt sitting Knee Strength Knee Manual Muscle Testing Left Flexion (S2) 5 Normal Extension (L3) 5 Normal Right Flexion (S2) 5 Normal Extension (L3) 5 Normal Ankle/Foot Strength Ankle and Foot Manual Muscle Testing Left Dorsiflexion (L4) 5 Normal Right Dorsiflexion (L4) 5 Normal PT-OP-Q Treatments Start: 07/27/20 16:14 Freq: Status: Active Protocol: Document 08/02/20 14:15 MB (Rec: 08/02/20 15:35 MB [id number]) Therapeutic Exercises Sitting Exercises Side to side Side bilateral Equipment Used Treatment table in room Reps/Minutes 10 to each side, alternating Comments cues for BIG hands, fingers and right leg Forward reach Equipment Used Treatment table in room Reps/Minutes 10 reps Comments Cues to count LOUD each exercise number and then count LOUD Standing Exercises Side rock and reach Side bilateral Reps/Minutes 10 reps Comments Cues for BIG movement Forward rock and reach Side bilateral Reps/Minutes 10 reps Comments Cues to start BIG stance, BIG right arm Backward step Side bilateral Reps/Minutes 10 reps Comments Cues for BIG front toe Side step Side bilateral Reps/Minutes 10 reps Comments Cues to look towards direction standing Forward step Side bilateral Reps/Minutes 10 reps Comments Cues for BIG stance Therapeutic Activity Therapeutic Activity Making top sheet of bed on small mat table Reps/Minutes 5 minutes Comments PT demonstrates BIG movements, BIG steps from head of mat to foot of mat. Pt performs many reps with the following speeds: 10 sec, 9 sec, 14 sec (sheet not flat), 9 sec, 13 sec. Cues for BIG shake and BIG corners Wax on, wax off Reps/Minutes 2 minutes Comments Pt reports trouble washing stomach, circular motions. She has no trouble demonstrating this on self or on the wall today. She then describes using long handled scrubber. She may bring in for practice Donning and doffing gloves Reps/Minutes 5 minutes Comments Pt standing, cues for her to hold both gloves (she tends to want to have one resting on table). PT demonstrates BIG donning and doffing. She presents with the following times recorded for reps of donning and doffing both gloves: 14 sec, 14 sec, 11 sec , 10 sec, 10 sec, 10 sec, 10 sec. Improvement with repetitions Gait Training Gait Activity BIG walking Level of Assistance Superv and cues Surface Kimber and carpet Distance/Duration 15' Treatment Focus BIG arm swing, amy right Comments Pt presents with functional leg length difference. She responds better to PT holding yard sticks in front of her and she holding behind PT compared to pt being in front. She increases B arm extension as she pulls back on the yard sticks with therapist resisting in front. Pt is able to carryover larger arm swing after this training. She does con't to decrease arm swing when she talks with gait Self-Care/Home Management Treatment Education Other Education Educated pt on sensory mismatch between perceived movement and actual/produced movement. PT-OP-T Assessment and Plan Start: 07/27/20 16:14 Freq: Status: Active Protocol: Document 08/02/20 14:15 MB (Rec: 08/02/20 15:35 MB [id number]) Physical Therapy Assessment Rehab Potential Rehabilitation Potential Good Evaluation Complexity Number of Personal Factors/Comorbidities 1-2 Number of Body Systems Impaired 1-2 Clinical Presentation at Evaluation Evolving Impairments Impairments Balance,Functional Activities, Functional Mobility,Gait, Posture Goals 4 Property Management Assistant Goal (LTG) Pt will perform WNLs on a standardized balance test to decrease fall risk by 08/30/20. LTG Duration 16 treatments 3 Property Management Assistant Goal (LTG) Pt will perform BIG exercises and functional tasks BID with handouts and I to improve amplitude and quality of movement by 08/30/20. LTG Duration 16 treatments 2 Assisted Goal (LTG) Pt will gait train at least 1600 feet in 6 minutes with cognitive task intermittently to improve gait speed and endurance by 08/30/20. LTG Duration 16 treatments 1 Assisted Goal (LTG) Pt will perform at least 20 reps of sit to stands without UE support in 30 sec to improve functional transfers by 08/30/20. LTG Duration 16 treatments Assessment Summary Assessment Pt with improved awareness of BIG movement today and she is LOUDer with counting out loud for exercises. She does require cues for form and for BIG right arm with gait. She has better carryover once used yard sticks to provide tactile cues for arm swing with gait. Con't gait and functional activity progression. Alternating exercises seems to be difficult for pt today. Physical Therapy Plan Frequency and Duration Frequency of Treatment 16 treatments Duration of Treatment 16 treatments Plan of Care Start Date 07/30/20 Plan of Care End Date 08/30/20 Therapeutic Interventions Therapeutic Interventions Balance Training,Canalithic Repositioning,Coordination Training,Gait Training,Home Exercise Program,Neuromuscular Re-education,Patient/ Caregiver Education,Self-Care/ Home Management,Sensory Integration,Therapeutic Activities,Therapeutic Exercises Modalities Cold Pack/Ice Massage,Hot Packs Next Visit Focus/Plan Next Note Type Treatment Note Next Visit Plan Con't functional tasks donning and doffing gloves, circular motions for bathing, chopping, flipping sheets (perform on bigger mat) and handwriting. Check orthostatics as needed
--- NOTE | 2020-08-03 07:22 | PT-OP ANOTE ---
PT calls pt to follow-up on her statement about leg muscles seizing at night. Encouraged pt to stay up on her water intake and fruit. Recommended that she follow-up with her pharmacist/doctor about magnesium, vitamin D3 and electrolytes. Pt states she will do so and note any changes in muscles seizing now that she is exercising and walking more with BIG therapy.
--- NOTE | 2020-08-06 15:34 | PT.OTN ---
Current Diagnoses Parkinson's disease (08/06/20) Physical Therapy Treatment Note PT-OP-A Visit Information Start: 07/27/20 16:14 Freq: Status: Active Protocol: Document 08/06/20 14:15 MB (Rec: 08/06/20 15:27 MB [id number]) Out-Patient Physical Therapy Visit Information Visit Information Visit Type Treatment Note Visit Note Medicare, 14 visits before KX Visit Start Time 14:15 Visit Stop Time 15:15 Total Visit Minutes 60 Visit Number 5 PT-OP-B Current Condition Start: 07/27/20 16:14 Freq: Status: Active Protocol: Document 07/30/20 14:27 MB (Rec: 07/30/20 14:23 MB [id number]) Current Condition History of Current Condition Onset Date 2014 Current Complaints Right arm tremor, imbalance, decreased mental clarity, moving slowly History of Current Condition 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 Pt reports first symptoms was right arm shaking when typing. She gets cold easily. She lists her initial symptoms of PD were tremors, gait, small handwriting, balance when tested. 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 She feels like she occ spins. Pt states that she gets a lot of neck tension because she is cold a lot. Pt reports left hip pain. Pt takes Carbidopa Levodopa 3x/day. She states that her medication decreases her tremor and helps with mind clarity. Pt lives with a house mate. She has two steps and 1 rail rail to enter. She likes walking for exercise. She does better if she has a destination or someone to walk with. She feels like she gets winded easily. She likes to hike occasionally. Pt has not had any falls. Treatment Goals Patient/Caregiver Goals Pt's goals for therapy include discovering exercises to keep PD at bay. Prior Functional Status Baseline Function- ADL's Independent Baseline Function- Mobility Independent PT-OP-C Subjective Start: 07/27/20 16:14 Freq: Status: Active Protocol: Document 08/06/20 14:15 MB (Rec: 08/06/20 15:27 MB [id number]) OP-PT Subjective Patient Comments Patient Comments I have your voice in my head when I walk from the [facility]. Pt states that she is thinking about walking BIGger and watched [employer] video. She performed her BIG HEP. PT-OP-D Balance Start: 07/27/20 16:14 Freq: Status: Active Protocol: Document 07/30/20 14:27 MB (Rec: 07/30/20 15:47 MB [id number]) Balance Tests Other Other Balance Tests Performed See below for balance testing today PT-OP-G Mobility & Gait Start: 07/27/20 16:14 Freq: Status: Active Protocol: Document 07/30/20 14:27 MB (Rec: 07/30/20 15:47 MB [id number]) OP Gait Assessment Gait Gait Assistance Required: Independent Distance (Feet) 1,574 Able to Maintain Weight Bearing Status Yes During Gait Assistive Devices Assistive Device None Orthotic/Prosthetic Devices or Brace: No Gait Deviations General Gait Pattern Decreased Stride Length Comments Gait Comments Pt presents with decreased stride length and right greater than left UE movement with gait. Her meagan slows with cognitive task PT-OP-M Strength Start: 07/27/20 16:14 Freq: Status: Active Protocol: Document 07/30/20 14:27 MB (Rec: 07/30/20 15:47 MB [id number]) Shoulder Strength Shoulder Manual Muscle Testing Left Flexion 5 Normal Abduction (C5) 5 Normal Right Flexion 5 Normal Abduction (C5) 5 Normal Elbow/Forearm Strength Elbow and Forearm Manual Muscle Testing Left Flexion (C6) 5 Normal Extension (C7) 5 Normal Right Flexion (C6) 5 Normal Extension (C7) 5 Normal Hip Strength Hip Manual Muscle Testing Left Flexion (L2) 5 Normal Comments Pt sitting Right Flexion (L2) 5 Normal Comments Pt sitting Knee Strength Knee Manual Muscle Testing Left Flexion (S2) 5 Normal Extension (L3) 5 Normal Right Flexion (S2) 5 Normal Extension (L3) 5 Normal Ankle/Foot Strength Ankle and Foot Manual Muscle Testing Left Dorsiflexion (L4) 5 Normal Right Dorsiflexion (L4) 5 Normal PT-OP-Q Treatments Start: 07/27/20 16:14 Freq: Status: Active Protocol: Document 08/06/20 14:15 MB (Rec: 08/06/20 15:27 MB [id number]) Therapeutic Exercises Sitting Exercises BIG sit to stands Equipment Used Treatment table in room Reps/Minutes 10 reps Comments Cues for counting and BIG fingers Side to side Side bilateral Equipment Used Treatment table in room Reps/Minutes 10 to each side, alternating Comments cues for BIG hands and right leg Forward reach Equipment Used Treatment table in room Reps/Minutes 10 reps Comments Cues to count LOUD Standing Exercises Side rock and reach Side bilateral Reps/Minutes 10 reps Comments Cues for BIG movement, arms out to side Forward rock and reach Side bilateral Reps/Minutes 10 reps Comments Pt performs well today, BIG arms Backward step Side bilateral Reps/Minutes 10 reps Comments Cues for BIG front toe, BIG hands, arm movement Side step Side bilateral Reps/Minutes 10 reps Comments Alternating, count to 20 Forward step Side bilateral Reps/Minutes 10 reps Comments Cues for BIG stance, alternating, cound to 20 Therapeutic Activity Therapeutic Activity Making top sheet of bed on small mat table Name Bariatric mat in gym Reps/Minutes 3 minutes Comments 12 sec, 8 sec, 10 sec, 6 sec and 12 sec. Pt steps bigger, moves bigger Donning and doffing gloves Reps/Minutes 5 minutes Comments Improved today, performs holding both gloves: 9 sec, 10 sec, one rep where glove is not opened, 10 sec, 11 sec Gait Training Gait Activity BIG walking Level of Assistance Superv and cues Surface Sidewalk, pavement, curb Distance/Duration 13' Treatment Focus BIG arm swing B, amy right Comments Ongoing difficulty with BIG arm swing, needs most work on shoulder extension PT-OP-T Assessment and Plan Start: 07/27/20 16:14 Freq: Status: Active Protocol: Document 08/06/20 14:15 MB (Rec: 08/06/20 15:27 MB [id number]) Physical Therapy Assessment Rehab Potential Rehabilitation Potential Good Evaluation Complexity Number of Personal Factors/Comorbidities 1-2 Number of Body Systems Impaired 1-2 Clinical Presentation at Evaluation Evolving Impairments Impairments Balance,Functional Activities, Functional Mobility,Gait, Posture Goals 4 Director Of Informatics Goal (LTG) Pt will perform WNLs on a standardized balance test to decrease fall risk by 08/30/20. LTG Duration 16 treatments 3 Director Of Informatics Goal (LTG) Pt will perform BIG exercises and functional tasks BID with handouts and I to improve amplitude and quality of movement by 08/30/20. LTG Duration 16 treatments 2 Fpc Goal (LTG) Pt will gait train at least 1600 feet in 6 minutes with cognitive task intermittently to improve gait speed and endurance by 08/30/20. LTG Duration 16 treatments 1 Fpc Goal (LTG) Pt will perform at least 20 reps of sit to stands without UE support in 30 sec to improve functional transfers by 08/30/20. LTG Duration 16 treatments Assessment Summary Assessment Progressed BIG exercises to alternating side step and foward step. Pt has trouble with BIG form when trying to alternate for backward step and so not performed alternating today. Ongoing difficulty with BIG arm extension with gait that worsens with talking, con't to work on. Progress balance activities with gait in future treatments and other challenges as listed under next treatment date. Physical Therapy Plan Frequency and Duration Frequency of Treatment 16 treatments Duration of Treatment 16 treatments Plan of Care Start Date 07/30/20 Plan of Care End Date 08/30/20 Therapeutic Interventions Therapeutic Interventions Balance Training,Canalithic Repositioning,Coordination Training,Gait Training,Home Exercise Program,Neuromuscular Re-education,Patient/ Caregiver Education,Self-Care/ Home Management,Sensory Integration,Therapeutic Activities,Therapeutic Exercises Modalities Cold Pack/Ice Massage,Hot Packs Next Visit Focus/Plan Next Note Type Treatment Note Next Visit Plan Consider adding flicks and ankle weights (may try 1lb wrist weights for arm swing). Con't functional tasks including chopping, flipping sheets (perform on bigger mat and use fitted sheet) and handwriting. Check orthostatics as needed
--- NOTE | 2020-08-07 15:34 | PT.OTN ---
Current Diagnoses Parkinson's disease (08/07/20) Physical Therapy Treatment Note PT-OP-A Visit Information Start: 07/27/20 16:14 Freq: Status: Active Protocol: Document 08/07/20 14:17 MB (Rec: 08/07/20 15:34 MB [id number]) Out-Patient Physical Therapy Visit Information Visit Information Visit Type Treatment Note Visit Note Medicare, 13 visits before KX Visit Start Time 14:17 Visit Stop Time 16:17 Total Visit Minutes 60 Visit Number 6 PT-OP-B Current Condition Start: 07/27/20 16:14 Freq: Status: Active Protocol: Document 07/30/20 14:27 MB (Rec: 07/30/20 14:23 MB [id number]) Current Condition History of Current Condition Onset Date 2014 Current Complaints Right arm tremor, imbalance, decreased mental clarity, moving slowly History of Current Condition 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 Pt reports first symptoms was right arm shaking when typing. She gets cold easily. She lists her initial symptoms of PD were tremors, gait, small handwriting, balance when tested. 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 She feels like she occ spins. Pt states that she gets a lot of neck tension because she is cold a lot. Pt reports left hip pain. Pt takes Carbidopa Levodopa 3x/day. She states that her medication decreases her tremor and helps with mind clarity. Pt lives with a house mate. She has two steps and 1 rail rail to enter. She likes walking for exercise. She does better if she has a destination or someone to walk with. She feels like she gets winded easily. She likes to hike occasionally. Pt has not had any falls. Treatment Goals Patient/Caregiver Goals Pt's goals for therapy include discovering exercises to keep PD at bay. Prior Functional Status Baseline Function- ADL's Independent Baseline Function- Mobility Independent PT-OP-C Subjective Start: 07/27/20 16:14 Freq: Status: Active Protocol: Document 08/07/20 14:17 MB (Rec: 08/07/20 15:34 MB [id number]) OP-PT Subjective Patient Comments Patient Comments My neck and shoulders can feel that they're working. PT-OP-D Balance Start: 07/27/20 16:14 Freq: Status: Active Protocol: Document 07/30/20 14:27 MB (Rec: 07/30/20 15:47 MB [id number]) Balance Tests Other Other Balance Tests Performed See below for balance testing today PT-OP-G Mobility & Gait Start: 07/27/20 16:14 Freq: Status: Active Protocol: Document 07/30/20 14:27 MB (Rec: 07/30/20 15:47 MB [id number]) OP Gait Assessment Gait Gait Assistance Required: Independent Distance (Feet) 1,574 Able to Maintain Weight Bearing Status Yes During Gait Assistive Devices Assistive Device None Orthotic/Prosthetic Devices or Brace: No Gait Deviations General Gait Pattern Decreased Stride Length Comments Gait Comments Pt presents with decreased stride length and right greater than left UE movement with gait. Her meagan slows with cognitive task PT-OP-M Strength Start: 07/27/20 16:14 Freq: Status: Active Protocol: Document 07/30/20 14:27 MB (Rec: 07/30/20 15:47 MB [id number]) Shoulder Strength Shoulder Manual Muscle Testing Left Flexion 5 Normal Abduction (C5) 5 Normal Right Flexion 5 Normal Abduction (C5) 5 Normal Elbow/Forearm Strength Elbow and Forearm Manual Muscle Testing Left Flexion (C6) 5 Normal Extension (C7) 5 Normal Right Flexion (C6) 5 Normal Extension (C7) 5 Normal Hip Strength Hip Manual Muscle Testing Left Flexion (L2) 5 Normal Comments Pt sitting Right Flexion (L2) 5 Normal Comments Pt sitting Knee Strength Knee Manual Muscle Testing Left Flexion (S2) 5 Normal Extension (L3) 5 Normal Right Flexion (S2) 5 Normal Extension (L3) 5 Normal Ankle/Foot Strength Ankle and Foot Manual Muscle Testing Left Dorsiflexion (L4) 5 Normal Right Dorsiflexion (L4) 5 Normal PT-OP-Q Treatments Start: 07/27/20 16:14 Freq: Status: Active Protocol: Document 08/07/20 14:17 MB (Rec: 08/07/20 15:34 MB [id number]) Therapeutic Exercises Sitting Exercises BIG sit to stands Equipment Used Treatment table in room Reps/Minutes 10 reps Comments Improved counting today Side to side Side bilateral Equipment Used Treatment table in room Reps/Minutes 5 to each side, alternating Comments cues for BIG hands and right leg Forward reach Equipment Used Treatment table in room Reps/Minutes 5 reps Comments Cues to count LOUD and big fingers Standing Exercises Use of racquet ball for intrascapular and upper traps STM Comments Ed pt use of racquet ball in sock for massage these two areas, handout Side rock and reach Side bilateral Reps/Minutes 10 reps Comments Cues for BIG movement, arms out to side Forward rock and reach Side bilateral Reps/Minutes 10 reps Comments Pt performs well today, BIG arms Backward step Side bilateral Reps/Minutes 10 reps Comments Cues for hand placement occ Side step Side bilateral Reps/Minutes 10 reps Comments Alternating, count to 20 Forward step Side bilateral Reps/Minutes 10 reps Comments Alternating, pt performs well, counts well Therapeutic Activity Therapeutic Activity Making top sheet of bed on small mat table Name Small mat in gym Reps/Minutes 8' Comments Fitted sheet and top sheet donning timed today. Gym pillows too easy to don and doff case d/t they are firm and plastic. Times for making bed (bottom fitted sheet and top sheet, both unwrinkled): 44 sec, 46 sec, 34 sec, 36 sec , 42 sec, 38 sec. Cues for big shake, big corner and big stepping Gait Training Gait Activity Pre-gait rock and reach with level 1 band at door jam Device Used Level 1 band Comments Pt performs rock and reach x10 with right foot in front and x10 with left foot in front while hold band and working on big right arm (shoulder extension and shoulder blade retraction) BIG walking Level of Assistance Superv and cues Surface Sidewalk, pavement, curb Distance/Duration 8' Treatment Focus BIG arm swing B, amy right Comments Pt has ongoing trouble with big arm swing right (extension big past hip) and attempted using level 1 band with tech walking in front of pt and pt holding two sides of band (one in each hand) and she cannot coordinate big step and big extension. See revised pre- gait exercise below PT-OP-T Assessment and Plan Start: 07/27/20 16:14 Freq: Status: Active Protocol: Document 08/07/20 14:17 MB (Rec: 08/07/20 15:34 MB [id number]) Physical Therapy Assessment Rehab Potential Rehabilitation Potential Good Evaluation Complexity Number of Personal Factors/Comorbidities 1-2 Number of Body Systems Impaired 1-2 Clinical Presentation at Evaluation Evolving Impairments Impairments Balance,Functional Activities, Functional Mobility,Gait, Posture Goals 4 Dust Box Worker Goal (LTG) Pt will perform WNLs on a standardized balance test to decrease fall risk by 08/30/20. LTG Duration 16 treatments 3 Dust Box Worker Goal (LTG) Pt will perform BIG exercises and functional tasks BID with handouts and I to improve amplitude and quality of movement by 08/30/20. LTG Duration 16 treatments 2 Dust Box Worker Goal (LTG) Pt will gait train at least 1600 feet in 6 minutes with cognitive task intermittently to improve gait speed and endurance by 08/30/20. LTG Duration 16 treatments 1 [facility] Goal (LTG) Pt will perform at least 20 reps of sit to stands without UE support in 30 sec to improve functional transfers by 08/30/20. LTG Duration 16 treatments Assessment Summary Assessment Pt reports neck and upper shoulder discomfort from all the exercises and added racquet ball self-massage for self-treatment at home. May need to better educate pt on scapular retraction in future treatments. Pt con't to have trouble with BIG arm extension on the right with gait and added pre-gait forward rock and reach with band resistance . Re-check her understanding tomorrow. Initiate chopping and handwriting and progress gait. Physical Therapy Plan Frequency and Duration Frequency of Treatment 16 treatments Duration of Treatment 16 treatments Plan of Care Start Date 07/30/20 Plan of Care End Date 08/30/20 Therapeutic Interventions Therapeutic Interventions Balance Training,Canalithic Repositioning,Coordination Training,Gait Training,Home Exercise Program,Neuromuscular Re-education,Patient/ Caregiver Education,Self-Care/ Home Management,Sensory Integration,Therapeutic Activities,Therapeutic Exercises Modalities Cold Pack/Ice Massage,Hot Packs Next Visit Focus/Plan Next Note Type Treatment Note Next Visit Plan Practice chopping and handwriting. Consider adding flicks to exercises. Review forward rock and reach with the band. Check orthostatics as needed
--- NOTE | 2020-08-08 15:47 | PT.OTN ---
Current Diagnoses Parkinson's disease (08/08/20) Physical Therapy Treatment Note PT-OP-A Visit Information Start: 07/27/20 16:14 Freq: Status: Active Protocol: Document 08/08/20 15:29 AW (Rec: 08/08/20 15:47 AW [id number]) Out-Patient Physical Therapy Visit Information Visit Information Visit Type Treatment Note Visit Note Pt arrived 5 minutes late. Had to [place] from [facility] to home before coming in today. 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 Pt reports first symptoms was right arm shaking when typing. She gets cold easily. She lists her initial symptoms of PD were tremors, gait, small handwriting, balance when tested. 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 She feels like she occ spins. Pt states that she gets a lot of neck tension because she is cold a lot. Pt reports left hip pain. Pt takes Carbidopa Levodopa 3x/day. She states that her medication decreases her tremor and helps with mind clarity. Pt lives with a house mate. She has two steps and 1 rail rail to enter. She likes walking for exercise. She does better if she has a destination or someone to walk with. She feels like she gets winded easily. She likes to hike occasionally. Pt has not had any falls. Treatment Goals Patient/Caregiver Goals Pt's goals for therapy include discovering exercises to keep PD at bay. Prior Functional Status Baseline Function- ADL's Independent Baseline Function- Mobility Independent PT-OP-C Subjective Start: 07/27/20 16:14 Freq: Status: Active Protocol: Document 08/08/20 15:29 AW (Rec: 08/08/20 15:47 AW [id number]) OP-PT Subjective Patient Comments Patient Comments Feeling rushed but good today . PT-OP-D Balance Start: 07/27/20 16:14 Freq: Status: Active Protocol: Document 07/30/20 14:27 MB (Rec: 07/30/20 15:47 MB [id number]) Balance Tests Other Other Balance Tests Performed See below for balance testing today PT-OP-G Mobility & Gait Start: 07/27/20 16:14 Freq: Status: Active Protocol: Document 07/30/20 14:27 MB (Rec: 07/30/20 15:47 MB [id number]) OP Gait Assessment Gait Gait Assistance Required: Independent Distance (Feet) 1,574 Able to Maintain Weight Bearing Status Yes During Gait Assistive Devices Assistive Device None Orthotic/Prosthetic Devices or Brace: No Gait Deviations General Gait Pattern Decreased Stride Length Comments Gait Comments Pt presents with decreased stride length and right greater than left UE movement with gait. Her meagan slows with cognitive task PT-OP-M Strength Start: 07/27/20 16:14 Freq: Status: Active Protocol: Document 07/30/20 14:27 MB (Rec: 07/30/20 15:47 MB [id number]) Shoulder Strength Shoulder Manual Muscle Testing Left Flexion 5 Normal Abduction (C5) 5 Normal Right Flexion 5 Normal Abduction (C5) 5 Normal Elbow/Forearm Strength Elbow and Forearm Manual Muscle Testing Left Flexion (C6) 5 Normal Extension (C7) 5 Normal Right Flexion (C6) 5 Normal Extension (C7) 5 Normal Hip Strength Hip Manual Muscle Testing Left Flexion (L2) 5 Normal Comments Pt sitting Right Flexion (L2) 5 Normal Comments Pt sitting Knee Strength Knee Manual Muscle Testing Left Flexion (S2) 5 Normal Extension (L3) 5 Normal Right Flexion (S2) 5 Normal Extension (L3) 5 Normal Ankle/Foot Strength Ankle and Foot Manual Muscle Testing Left Dorsiflexion (L4) 5 Normal Right Dorsiflexion (L4) 5 Normal PT-OP-Q Treatments Start: 07/27/20 16:14 Freq: Status: Active Protocol: Document 08/08/20 15:29 AW (Rec: 08/08/20 15:47 AW [id number]) Therapeutic Exercises Sitting Exercises BIG sit to stands Equipment Used Treatment table in room Reps/Minutes 10 reps Comments cued for bigger forward lean on stand to sit Side to side Side bilateral Equipment Used Treatment table in room Reps/Minutes 5 to each side, alternating Comments cues for BIG hands Forward reach Equipment Used Treatment table in room Reps/Minutes 5 reps Comments Cues to count LOUD and big fingers Standing Exercises Side rock and reach Side bilateral Reps/Minutes 10 reps Comments Cues for BIG hands Forward rock and reach Side bilateral Reps/Minutes 10 reps Comments pre-gait activity with band first, then removed external cue Backward step Side bilateral Resistance 1# Equipment Used wrist weights Reps/Minutes 10 reps Comments improved backward swing Side step Side bilateral Resistance 1# Equipment Used wrist weights Reps/Minutes 10 reps Comments Alternating, count to 20 Forward step Side bilateral Resistance 1# Equipment Used wrist weights Reps/Minutes 10 reps Comments Alternating, pt performs well, counts well Therapeutic Activity Therapeutic Activity writing Name writing Reps/Minutes 5 minutes Comments Observed pt's uncued writing - signing her name and drawing O's across /4 lined paper. Noted decreased amplitude as writing progressed across the page. Cued involvement of entire upper extremity and some trunk rotation as pt continued to practice. chopping Name chopping Reps/Minutes 5 minutes Comments Observed pt's uncued performance cutting putty with dull knife and noted very little movement above the wrist as well as narrow COLT. Cued pt to split stance and shift weight with each knife stroke for increased amplitude of overall movement and reduced demand on hand/forearm . Making top sheet of bed on small mat table Name Small mat in gym Reps/Minutes 8' Comments Fitted sheet and top sheet donning timed today. Times stable ~42-45 seconds on four reps and degradation of BIG steps on last two reps. Gait Training Gait Activity Pre-gait rock and reach with level 1 band at door jam Device Used Level 1 band Comments Performed prior to forward rock and reach BIG walking Level of Assistance Superv and cues Surface inside hallway, around the gym Distance/Duration 15 minutes Treatment Focus BIG arm swing B, amy right Comments Cued pt to drive right arm swing with same amount of force as she used during pre- gait band activity. Pt able to exaggerate and maintain bigger RUE swing but clear reduction in amplitude is noted with any distraction or added cognitive task. PT-OP-T Assessment and Plan Start: 07/27/20 16:14 Freq: Status: Active Protocol: Document 08/08/20 15:29 AW (Rec: 08/08/20 15:47 AW [id number]) Physical Therapy Assessment Rehab Potential Rehabilitation Potential Good Evaluation Complexity Number of Personal Factors/Comorbidities 1-2 Number of Body Systems Impaired 1-2 Clinical Presentation at Evaluation Evolving Impairments Impairments Balance,Functional Activities, Functional Mobility,Gait, Posture Goals 4 Foreign Broadcast Specialist Goal (LTG) Pt will perform WNLs on a standardized balance test to decrease fall risk by 08/30/20. LTG Duration 16 treatments 3 [employer] Specialist Goal (LTG) Pt will perform BIG exercises and functional tasks BID with handouts and I to improve amplitude and quality of movement by 08/30/20. LTG Duration 16 treatments 2 [facility] Goal (LTG) Pt will gait train at least 1600 feet in 6 minutes with cognitive task intermittently to improve gait speed and endurance by 08/30/20. LTG Duration 16 treatments 1 [facility] Goal (LTG) Pt will perform at least 20 reps of sit to stands without UE support in 30 sec to improve functional transfers by 08/30/20. LTG Duration 16 treatments Assessment Summary Assessment Pt demonstrates excellent stimulability but continues to struggle with carryover of bigger arm swing when challenged with added cognitive task. Physical Therapy Plan Frequency and Duration Frequency of Treatment 16 treatments Duration of Treatment 16 treatments Plan of Care Start Date 07/30/20 Plan of Care End Date 08/30/20 Therapeutic Interventions Therapeutic Interventions Balance Training,Canalithic Repositioning,Coordination Training,Gait Training,Home Exercise Program,Neuromuscular Re-education,Patient/ Caregiver Education,Self-Care/ Home Management,Sensory Integration,Therapeutic Activities,Therapeutic Exercises Modalities Cold Pack/Ice Massage,Hot Packs Next Visit Focus/Plan Next Note Type Treatment Note Next Visit Plan Check orthostatics as needed. Continue with functional tasks training. Grade exposure to cognitive task challenge during BIG walking.
--- NOTE | 2020-08-09 15:47 | PT.OTN ---
Current Diagnoses Parkinson's disease (08/09/20) Physical Therapy Treatment Note PT-OP-A Visit Information Start: 07/27/20 16:14 Freq: Status: Active Protocol: Document 08/09/20 14:17 MB (Rec: 08/09/20 15:45 MB [id number]) Out-Patient Physical Therapy Visit Information Visit Information Visit Type Treatment Note Visit Note Medicare, 11 visits before KX Visit Start Time 14:17 Visit Stop Time 15:15 Total Visit Minutes 58 Visit Number 8 PT-OP-B Current Condition Start: 07/27/20 16:14 Freq: Status: Active Protocol: Document 07/30/20 14:27 MB (Rec: 07/30/20 14:23 MB [id number]) Current Condition History of Current Condition Onset Date 2014 Current Complaints Right arm tremor, imbalance, decreased mental clarity, moving slowly History of Current Condition 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 Pt reports first symptoms was right arm shaking when typing. She gets cold easily. She lists her initial symptoms of PD were tremors, gait, small handwriting, balance when tested. 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 She feels like she occ spins. Pt states that she gets a lot of neck tension because she is cold a lot. Pt reports left hip pain. Pt takes Carbidopa Levodopa 3x/day. She states that her medication decreases her tremor and helps with mind clarity. Pt lives with a house mate. She has two steps and 1 rail rail to enter. She likes walking for exercise. She does better if she has a destination or someone to walk with. She feels like she gets winded easily. She likes to hike occasionally. Pt has not had any falls. Treatment Goals Patient/Caregiver Goals Pt's goals for therapy include discovering exercises to keep PD at bay. Prior Functional Status Baseline Function- ADL's Independent Baseline Function- Mobility Independent PT-OP-C Subjective Start: 07/27/20 16:14 Freq: Status: Active Protocol: Document 08/09/20 14:17 MB (Rec: 08/09/20 15:45 MB [id number]) OP-PT Subjective Patient Comments Patient Comments Pt states that her shoulder and neck are feeling fine. PT-OP-D Balance Start: 07/27/20 16:14 Freq: Status: Active Protocol: Document 07/30/20 14:27 MB (Rec: 07/30/20 15:47 MB [id number]) Balance Tests Other Other Balance Tests Performed See below for balance testing today PT-OP-G Mobility & Gait Start: 07/27/20 16:14 Freq: Status: Active Protocol: Document 07/30/20 14:27 MB (Rec: 07/30/20 15:47 MB [id number]) OP Gait Assessment Gait Gait Assistance Required: Independent Distance (Feet) 1,574 Able to Maintain Weight Bearing Status Yes During Gait Assistive Devices Assistive Device None Orthotic/Prosthetic Devices or Brace: No Gait Deviations General Gait Pattern Decreased Stride Length Comments Gait Comments Pt presents with decreased stride length and right greater than left UE movement with gait. Her meagan slows with cognitive task PT-OP-M Strength Start: 07/27/20 16:14 Freq: Status: Active Protocol: Document 07/30/20 14:27 MB (Rec: 07/30/20 15:47 MB [id number]) Shoulder Strength Shoulder Manual Muscle Testing Left Flexion 5 Normal Abduction (C5) 5 Normal Right Flexion 5 Normal Abduction (C5) 5 Normal Elbow/Forearm Strength Elbow and Forearm Manual Muscle Testing Left Flexion (C6) 5 Normal Extension (C7) 5 Normal Right Flexion (C6) 5 Normal Extension (C7) 5 Normal Hip Strength Hip Manual Muscle Testing Left Flexion (L2) 5 Normal Comments Pt sitting Right Flexion (L2) 5 Normal Comments Pt sitting Knee Strength Knee Manual Muscle Testing Left Flexion (S2) 5 Normal Extension (L3) 5 Normal Right Flexion (S2) 5 Normal Extension (L3) 5 Normal Ankle/Foot Strength Ankle and Foot Manual Muscle Testing Left Dorsiflexion (L4) 5 Normal Right Dorsiflexion (L4) 5 Normal PT-OP-Q Treatments Start: 07/27/20 16:14 Freq: Status: Active Protocol: Document 08/09/20 14:17 MB (Rec: 08/09/20 15:45 MB [id number]) Therapeutic Exercises Sitting Exercises BIG sit to stands Equipment Used Treatment table in room Reps/Minutes 10 reps Comments Cues to keep BIG, with increased reps, effort wanes Side to side Side bilateral Equipment Used Treatment table in room Reps/Minutes 5 to each side, alternating Comments Added flick today, cues for performance and BIG hand, wrist and elbow Forward reach Equipment Used Treatment table in room Reps/Minutes 5 reps Comments Added flick today, cues for performance and BIG hand, wrist and elbow Standing Exercises Side rock and reach Side bilateral Reps/Minutes 10 reps Comments Cues for BIG arms and pivot Forward rock and reach Side bilateral Reps/Minutes 10 reps Comments Pt performs well today, BIG arms Backward step Side bilateral Reps/Minutes 10 reps Comments Cues for BIG hands and wrists Side step Side bilateral Reps/Minutes 10 reps Comments Alternating, added 1 flick Forward step Side bilateral Reps/Minutes 10 reps Comments Added flicks and could not alternate with added flick task Therapeutic Activity Therapeutic Activity writing Reps/Minutes 3' Comments BIG writing with focus on keeping size--pt writes first name and then first and last names. Her font size decreases with increased time chopping Reps/Minutes 3' Comments Pt cutting green putty with dull knife, working on using body and shoulders to help with using the knife, powering through her whole self. Making top sheet of bed on small mat table Name Fitted and top sheet on treatment room plinth with yoga mat Reps/Minutes 8' Comments Fitted sheet and top sheet donning today. Pt with improved BIG steps with activity. Her times are the followin sec, not timed, 42 sec, 39 sec, 31 sec Donning and doffing gloves Reps/Minutes 5' Comments Pt standing and holding both gloves in her hands: 12 sec, 13 sec, 9 sec, 14 sec, 14 sec, 18 sec Gait Training Gait Activity BIG walking Level of Assistance Superv and cues Surface Hallway and carpet Distance/Duration 15' Treatment Focus BIG arm swing B, amy right Comments Pt con't with trouble with BIG arm swing and BIG hand on the right, once cued, she performs for 45 sec or so before decreasing swing. Use therapy gym large mirror on wall to walk past every lap and this improves her BIG arm as she watches herself walk by and she can walk BIGGER for about 50' further before needing verbal or visual cue to walk BIG again PT-OP-T Assessment and Plan Start: 07/27/20 16:14 Freq: Status: Active Protocol: Document 08/09/20 14:17 MB (Rec: 08/09/20 15:45 MB [id number]) Physical Therapy Assessment Rehab Potential Rehabilitation Potential Good Evaluation Complexity Number of Personal Factors/Comorbidities 1-2 Number of Body Systems Impaired 1-2 Clinical Presentation at Evaluation Evolving Impairments Impairments Balance,Functional Activities, Functional Mobility,Gait, Posture Goals 4 Language Translator Goal (LTG) Pt will perform WNLs on a standardized balance test to decrease fall risk by 08/30/20. LTG Duration 16 treatments 3 Mcfp Goal (LTG) Pt will perform BIG exercises and functional tasks BID with handouts and I to improve amplitude and quality of movement by 08/30/20. LTG Duration 16 treatments 2 Mcfp Goal (LTG) Pt will gait train at least 1600 feet in 6 minutes with cognitive task intermittently to improve gait speed and endurance by 08/30/20. LTG Duration 16 treatments 1 Language Translator Goal (LTG) Pt will perform at least 20 reps of sit to stands without UE support in 30 sec to improve functional transfers by 08/30/20. LTG Duration 16 treatments Assessment Summary Assessment Initiated flicks today and this challenge made alternating forward step difficult. Also tried some flicking with gait to work on shoulder and elbow extension and BIG hands. Ongoing trouble with BIG hands and extension. Con't flicks with exercises and pt to watch Giraffe Friend video version with flicks this weekend. Con't progression. Physical Therapy Plan Frequency and Duration Frequency of Treatment 16 treatments Duration of Treatment 16 treatments Plan of Care Start Date 07/30/20 Plan of Care End Date 08/30/20 Therapeutic Interventions Therapeutic Interventions Balance Training,Canalithic Repositioning,Coordination Training,Gait Training,Home Exercise Program,Neuromuscular Re-education,Patient/ Caregiver Education,Self-Care/ Home Management,Sensory Integration,Therapeutic Activities,Therapeutic Exercises Modalities Cold Pack/Ice Massage,Hot Packs Next Visit Focus/Plan Next Note Type Treatment Note Next Visit Plan Con't flicks, functional activities, consider balance challenge with gait Check orthostatics as needed
--- NOTE | 2020-08-13 15:37 | PT.OTN ---
Current Diagnoses Parkinson's disease (08/13/20) Physical Therapy Treatment Note PT-OP-A Visit Information Start: 07/27/20 16:14 Freq: Status: Active Protocol: Document 08/13/20 14:17 MB (Rec: 08/13/20 15:37 MB [id number]) Out-Patient Physical Therapy Visit Information Visit Information Visit Type Treatment Note Visit Note Medicare, 10 visits before KX Visit Start Time 14:17 Visit Stop Time 15:19 Total Visit Minutes 62 Visit Number 9 PT-OP-B Current Condition Start: 07/27/20 16:14 Freq: Status: Active Protocol: Document 07/30/20 14:27 MB (Rec: 07/30/20 14:23 MB [id number]) Current Condition History of Current Condition Onset Date 2014 Current Complaints Right arm tremor, imbalance, decreased mental clarity, moving slowly History of Current Condition 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 Pt reports first symptoms was right arm shaking when typing. She gets cold easily. She lists her initial symptoms of PD were tremors, gait, small handwriting, balance when tested. 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 She feels like she occ spins. Pt states that she gets a lot of neck tension because she is cold a lot. Pt reports left hip pain. Pt takes Carbidopa Levodopa 3x/day. She states that her medication decreases her tremor and helps with mind clarity. Pt lives with a house mate. She has two steps and 1 rail rail to enter. She likes walking for exercise. She does better if she has a destination or someone to walk with. She feels like she gets winded easily. She likes to hike occasionally. Pt has not had any falls. Treatment Goals Patient/Caregiver Goals Pt's goals for therapy include discovering exercises to keep PD at bay. Prior Functional Status Baseline Function- ADL's Independent Baseline Function- Mobility Independent PT-OP-C Subjective Start: 07/27/20 16:14 Freq: Status: Active Protocol: Document 08/13/20 14:17 MB (Rec: 08/13/20 15:37 MB [id number]) OP-PT Subjective Patient Comments Patient Comments I tried walking in the house over the weekend but it wasn't as effective. Snow prevented pt from BIG walking outside PT-OP-D Balance Start: 07/27/20 16:14 Freq: Status: Active Protocol: Document 07/30/20 14:27 MB (Rec: 07/30/20 15:47 MB [id number]) Balance Tests Other Other Balance Tests Performed See below for balance testing today PT-OP-G Mobility & Gait Start: 07/27/20 16:14 Freq: Status: Active Protocol: Document 07/30/20 14:27 MB (Rec: 07/30/20 15:47 MB [id number]) OP Gait Assessment Gait Gait Assistance Required: Independent Distance (Feet) 1,574 Able to Maintain Weight Bearing Status Yes During Gait Assistive Devices Assistive Device None Orthotic/Prosthetic Devices or Brace: No Gait Deviations General Gait Pattern Decreased Stride Length Comments Gait Comments Pt presents with decreased stride length and right greater than left UE movement with gait. Her meagan slows with cognitive task PT-OP-M Strength Start: 07/27/20 16:14 Freq: Status: Active Protocol: Document 07/30/20 14:27 MB (Rec: 07/30/20 15:47 MB [id number]) Shoulder Strength Shoulder Manual Muscle Testing Left Flexion 5 Normal Abduction (C5) 5 Normal Right Flexion 5 Normal Abduction (C5) 5 Normal Elbow/Forearm Strength Elbow and Forearm Manual Muscle Testing Left Flexion (C6) 5 Normal Extension (C7) 5 Normal Right Flexion (C6) 5 Normal Extension (C7) 5 Normal Hip Strength Hip Manual Muscle Testing Left Flexion (L2) 5 Normal Comments Pt sitting Right Flexion (L2) 5 Normal Comments Pt sitting Knee Strength Knee Manual Muscle Testing Left Flexion (S2) 5 Normal Extension (L3) 5 Normal Right Flexion (S2) 5 Normal Extension (L3) 5 Normal Ankle/Foot Strength Ankle and Foot Manual Muscle Testing Left Dorsiflexion (L4) 5 Normal Right Dorsiflexion (L4) 5 Normal PT-OP-Q Treatments Start: 07/27/20 16:14 Freq: Status: Active Protocol: Document 08/13/20 14:17 MB (Rec: 08/13/20 15:37 MB [id number]) Therapeutic Exercises Sitting Exercises BIG sit to stands Equipment Used Black mat in gym, unraised Reps/Minutes 10 reps Comments Cues to keep BIG, with increased reps, effort wanes Side to side Side bilateral Equipment Used Black mat in gym, unraised Reps/Minutes 5 to each side, alternating Comments Cues for BIG Flicks, engage elbows Forward reach Equipment Used Black mat in gym, unraised Reps/Minutes 5 reps Comments Cues for BIG Flicks, engage elbows Standing Exercises Side rock and reach Side bilateral Reps/Minutes 10 reps Comments Alternating, Cues for BIG arms and pivot Forward rock and reach Side bilateral Reps/Minutes 10 reps Comments Pt performs well today, BIG arms Backward step Side bilateral Reps/Minutes 10 reps Comments Cues for BIG hands and wrists Side step Side bilateral Reps/Minutes 10 reps Comments 1 Flick added and pt cannot alternate with flick added Forward step Side bilateral Reps/Minutes 10 reps Comments 1 Flick added and pt cannot alternate with flick added Therapeutic Activity Therapeutic Activity writing Reps/Minutes 4' Comments BIG writing with focus on keeping size--size decreases with increased repetitions but improves once cued to use BIG arm, focus on amplitude and not speed, cues to slow down chopping Reps/Minutes 4' Comments Pt cutting green putty with dull knife, working on using body and shoulders to help with using the knife, powering through her whole self. Making top sheet of bed on small mat table Name Fitted and top sheet on treatment room plinth with yoga mat Reps/Minutes 8' Comments Fitted sheet and top sheet donning today. No scuffing with BIG steps today. Times: 66 sec, 51 sec, 48 sec, 41 sec , 38 sec. Conversation today slows patient Donning and doffing gloves Reps/Minutes 5' Comments Pt standing and holding both knitted gloves in her hands: 13 sec, 11 sec, 15 sec, 17 sec , 13 sec. Pt has increased tremoring today Gait Training Gait Activity BIG walking Level of Assistance Superv and cues Surface Hallway and carpet Distance/Duration 8' Treatment Focus BIG arm swing B, amy right Comments Improvement in her right hand extending past her hip today, visual cues in mirror helps pt . She responds well to cues for BIG arm back and not forward--increased forward flexion alters gait PT-OP-T Assessment and Plan Start: 07/27/20 16:14 Freq: Status: Active Protocol: Document 08/13/20 14:17 MB (Rec: 08/13/20 15:37 MB [id number]) Physical Therapy Assessment Rehab Potential Rehabilitation Potential Good Evaluation Complexity Number of Personal Factors/Comorbidities 1-2 Number of Body Systems Impaired 1-2 Clinical Presentation at Evaluation Evolving Impairments Impairments Balance,Functional Activities, Functional Mobility,Gait, Posture Goals 4 Sr. Payroll Manager Goal (LTG) Pt will perform WNLs on a standardized balance test to decrease fall risk by 08/30/20. LTG Duration 16 treatments 3 Sr. Payroll Manager Goal (LTG) Pt will perform BIG exercises and functional tasks BID with handouts and I to improve amplitude and quality of movement by 08/30/20. 08/13/20: Pt is performing BIG exercises and functional tasks and is occ using LSVT video LTG Duration 16 treatments 2 Sr. Payroll Manager Goal (LTG) Pt will gait train at least 1600 feet in 6 minutes with cognitive task intermittently to improve gait speed and endurance by 08/30/20. LTG Duration 16 treatments 1 Sr. Payroll Manager Goal (LTG) Pt will perform at least 20 reps of sit to stands without UE support in 30 sec to improve functional transfers by 08/30/20. LTG Duration 16 treatments Assessment Summary Assessment Pt is progressing with BIG exercises. Adding flick makes alternating difficult. Any talking during tasks slows pt' s performance of that task. Con't progression. Physical Therapy Plan Frequency and Duration Frequency of Treatment 16 treatments Duration of Treatment 16 treatments Plan of Care Start Date 07/30/20 Plan of Care End Date 08/30/20 Therapeutic Interventions Therapeutic Interventions Balance Training,Canalithic Repositioning,Coordination Training,Gait Training,Home Exercise Program,Neuromuscular Re-education,Patient/ Caregiver Education,Self-Care/ Home Management,Sensory Integration,Therapeutic Activities,Therapeutic Exercises Modalities Cold Pack/Ice Massage,Hot Packs Next Visit Focus/Plan Next Note Type Progress Note Next Visit Plan Con't flicks, functional activities, consider balance challenge with gait. Check orthostatics as needed
--- NOTE | 2020-08-14 15:45 | PT.OTN ---
Current Diagnoses Parkinson's disease (08/14/20) Physical Therapy Treatment Note PT-OP-A Visit Information Start: 07/27/20 16:14 Freq: Status: Active Protocol: Document 08/14/20 14:17 MB (Rec: 08/14/20 15:45 MB [id number]) Out-Patient Physical Therapy Visit Information Visit Information Visit Type Progress Note Visit Note Medicare, 9 visits before KX Visit Start Time 14:17 Visit Stop Time 15:20 Total Visit Minutes 63 Visit Number 10 PT-OP-B Current Condition Start: 07/27/20 16:14 Freq: Status: Active Protocol: Document 07/30/20 14:27 MB (Rec: 07/30/20 14:23 MB [id number]) Current Condition History of Current Condition Onset Date 2014 Current Complaints Right arm tremor, imbalance, decreased mental clarity, moving slowly History of Current Condition 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 Pt reports first symptoms was right arm shaking when typing. She gets cold easily. She lists her initial symptoms of PD were tremors, gait, small handwriting, balance when tested. 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 She feels like she occ spins. Pt states that she gets a lot of neck tension because she is cold a lot. Pt reports left hip pain. Pt takes Carbidopa Levodopa 3x/day. She states that her medication decreases her tremor and helps with mind clarity. Pt lives with a house mate. She has two steps and 1 rail rail to enter. She likes walking for exercise. She does better if she has a destination or someone to walk with. She feels like she gets winded easily. She likes to hike occasionally. Pt has not had any falls. Treatment Goals Patient/Caregiver Goals Pt's goals for therapy include discovering exercises to keep PD at bay. Prior Functional Status Baseline Function- ADL's Independent Baseline Function- Mobility Independent PT-OP-C Subjective Start: 07/27/20 16:14 Freq: Status: Active Protocol: Document 08/14/20 14:17 MB (Rec: 08/14/20 15:45 MB [id number]) OP-PT Subjective Patient Comments Patient Comments Pt states that she is working on BIG walking and using band for shoulder extension exercise PT-OP-D Balance Start: 07/27/20 16:14 Freq: Status: Active Protocol: Document 07/30/20 14:27 MB (Rec: 07/30/20 15:47 MB [id number]) Balance Tests Other Other Balance Tests Performed See below for balance testing today PT-OP-G Mobility & Gait Start: 07/27/20 16:14 Freq: Status: Active Protocol: Document 07/30/20 14:27 MB (Rec: 07/30/20 15:47 MB [id number]) OP Gait Assessment Gait Gait Assistance Required: Independent Distance (Feet) 1,574 Able to Maintain Weight Bearing Status Yes During Gait Assistive Devices Assistive Device None Orthotic/Prosthetic Devices or Brace: No Gait Deviations General Gait Pattern Decreased Stride Length Comments Gait Comments Pt presents with decreased stride length and right greater than left UE movement with gait. Her meagan slows with cognitive task PT-OP-M Strength Start: 07/27/20 16:14 Freq: Status: Active Protocol: Document 07/30/20 14:27 MB (Rec: 07/30/20 15:47 MB [id number]) Shoulder Strength Shoulder Manual Muscle Testing Left Flexion 5 Normal Abduction (C5) 5 Normal Right Flexion 5 Normal Abduction (C5) 5 Normal Elbow/Forearm Strength Elbow and Forearm Manual Muscle Testing Left Flexion (C6) 5 Normal Extension (C7) 5 Normal Right Flexion (C6) 5 Normal Extension (C7) 5 Normal Hip Strength Hip Manual Muscle Testing Left Flexion (L2) 5 Normal Comments Pt sitting Right Flexion (L2) 5 Normal Comments Pt sitting Knee Strength Knee Manual Muscle Testing Left Flexion (S2) 5 Normal Extension (L3) 5 Normal Right Flexion (S2) 5 Normal Extension (L3) 5 Normal Ankle/Foot Strength Ankle and Foot Manual Muscle Testing Left Dorsiflexion (L4) 5 Normal Right Dorsiflexion (L4) 5 Normal PT-OP-Q Treatments Start: 07/27/20 16:14 Freq: Status: Active Protocol: Document 08/14/20 14:17 MB (Rec: 08/14/20 15:45 MB [id number]) Therapeutic Exercises Sitting Exercises BIG sit to stands Equipment Used Firm blue chair in gym Reps/Minutes 10 reps Comments Improvement today Side to side Side bilateral Equipment Used Firm blue chair in gym Reps/Minutes 5 to each side, alternating Comments Cues for BIG Flick and BIG back leg Forward reach Equipment Used Firm blue chair in gym Reps/Minutes 5 reps Comments Improvement today Standing Exercises Side rock and reach Side bilateral Reps/Minutes 10 reps Comments Alternating, Cues for BIG arms and pivot to left Forward rock and reach Standing Exercise Name Tried with band and pt has trouble moving evenly Side bilateral Reps/Minutes 5 reps x2 with band; 10 reps Comments Without band, pt performs well Backward step Side bilateral Reps/Minutes 10 reps Comments Unable to alternate without losing form Side step Side bilateral Reps/Minutes 10 reps Comments Flick added and alternating, more cues Forward step Side bilateral Reps/Minutes 10 reps Comments Flick added and alternating Therapeutic Activity Therapeutic Activity writing Reps/Minutes 5' Comments BIG writing with PT asking pt to write different things, therapist's name, check writing in order to provide cognitive challenge and pt has trouble maintaining BIG writing chopping Reps/Minutes 4' Comments Pt cutting green putty with dull knife, working on using body and shoulders to help with using the knife, powering through her whole self. Making top sheet of bed on small mat table Name Fitted and top sheet on treatment room plinth with yoga mat Reps/Minutes 7' Comments Fitted sheet and top sheet donning today. No scuffing with BIG steps today. Conversion slows pt today. Reps: 67 sec, 42 sec, 55 sec, 33 sec, 69 sec Donning and doffing gloves Reps/Minutes 4' Comments Pt standing and holding both knitted gloves in her hands, dons left hand first: 13 sec, 14 sec, 15 sec, 14 sec, 14 sec Gait Training Gait Activity Pre-gait rock and reach with level 1 band at door jam Device Used Level 1 band Comments Performed prior to forward rock and reach 6MWT Comments BIG walking cues for right arm extension and hand and this decreases when pt is talking. Gait distance is 1675 feet today in 6 minutes. PT-OP-T Assessment and Plan Start: 07/27/20 16:14 Freq: Status: Active Protocol: Document 08/14/20 14:17 MB (Rec: 08/14/20 15:45 MB [id number]) Physical Therapy Assessment Rehab Potential Rehabilitation Potential Good Evaluation Complexity Number of Personal Factors/Comorbidities 1-2 Number of Body Systems Impaired 1-2 Clinical Presentation at Evaluation Evolving Impairments Impairments Balance,Functional Activities, Functional Mobility,Gait, Posture Goals 4 [employer] Goal (LTG) Pt will perform WNLs on a standardized balance test to decrease fall risk by 08/30/20. 08/14/20: Balance testing deferred today LTG Duration 16 treatments 3 Intermediate Goal (LTG) Pt will perform BIG exercises and functional tasks BID with handouts and I to improve amplitude and quality of movement by 08/30/20. 08/14/20: Pt is performing BIG exercises and functional tasks and is occ using LSVT video LTG Duration 16 treatments 2 [employer] Goal (LTG) Pt will gait train at least 1700 feet in 6 minutes with cognitive task intermittently to improve gait speed and endurance by 08/30/20. 08/14/20: Pt gait trains 1675 feet ub 6 minutes today LTG Duration 16 treatments 1 Intermediate Goal (LTG) Pt will perform at least 20 reps of sit to stands without UE support in 30 sec to improve functional transfers by 08/30/20. 08/14/20: Pt performs 14 reps sit to stand without UE support today LTG Duration 16 treatments Assessment Summary Assessment Pt has progressed towards all goals since starting BIG PT. Cognitive challenges con't to affect amplitude with gait and therapeutic activities. She will benefit from balance challenges added to gait tasks in future treatment dates. Physical Therapy Plan Frequency and Duration Frequency of Treatment 16 treatments Duration of Treatment 16 treatments Plan of Care Start Date 07/30/20 Plan of Care End Date 08/30/20 Therapeutic Interventions Therapeutic Interventions Balance Training,Canalithic Repositioning,Coordination Training,Gait Training,Home Exercise Program,Neuromuscular Re-education,Patient/ Caregiver Education,Self-Care/ Home Management,Sensory Integration,Therapeutic Activities,Therapeutic Exercises Modalities Cold Pack/Ice Massage,Hot Packs Next Visit Focus/Plan Next Note Type Progress Note Next Visit Plan Con't flicks, consider balance challenge with gait. Check orthostatics as needed
--- NOTE | 2020-08-15 16:16 | PT.OTN ---
Current Diagnoses Parkinson's disease (08/15/20) Physical Therapy Treatment Note PT-OP-A Visit Information Start: 07/27/20 16:14 Freq: Status: Active Protocol: Document 08/15/20 15:15 AW (Rec: 08/15/20 16:13 AW [id number]) Out-Patient Physical Therapy Visit Information Visit Information Visit Type Treatment Note Visit Note Medicare, 8 visits before KX Visit Start Time 14:18 Visit Stop Time 15:15 Total Visit Minutes 57 Visit Number 11 Evaluation Information Evaluation Date 07/30/20 PT-OP-B Current Condition Start: 07/27/20 16:14 Freq: Status: Active Protocol: Document 07/30/20 14:27 MB (Rec: 07/30/20 14:23 MB [id number]) Current Condition History of Current Condition Onset Date 2014 Current Complaints Right arm tremor, imbalance, decreased mental clarity, moving slowly History of Current Condition 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 Pt reports first symptoms was right arm shaking when typing. She gets cold easily. She lists her initial symptoms of PD were tremors, gait, small handwriting, balance when tested. 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 She feels like she occ spins. Pt states that she gets a lot of neck tension because she is cold a lot. Pt reports left hip pain. Pt takes Carbidopa Levodopa 3x/day. She states that her medication decreases her tremor and helps with mind clarity. Pt lives with a house mate. She has two steps and 1 rail rail to enter. She likes walking for exercise. She does better if she has a destination or someone to walk with. She feels like she gets winded easily. She likes to hike occasionally. Pt has not had any falls. Treatment Goals Patient/Caregiver Goals Pt's goals for therapy include discovering exercises to keep PD at bay. Prior Functional Status Baseline Function- ADL's Independent Baseline Function- Mobility Independent PT-OP-C Subjective Start: 07/27/20 16:14 Freq: Status: Active Protocol: Document 08/15/20 15:15 AW (Rec: 08/15/20 16:13 AW [id number]) OP-PT Subjective Patient Comments Patient Comments Pt is feeling good and well rested today. PT-OP-D Balance Start: 07/27/20 16:14 Freq: Status: Active Protocol: Document 07/30/20 14:27 MB (Rec: 07/30/20 15:47 MB [id number]) Balance Tests Other Other Balance Tests Performed See below for balance testing today PT-OP-G Mobility & Gait Start: 07/27/20 16:14 Freq: Status: Active Protocol: Document 07/30/20 14:27 MB (Rec: 07/30/20 15:47 MB [id number]) OP Gait Assessment Gait Gait Assistance Required: Independent Distance (Feet) 1,574 Able to Maintain Weight Bearing Status Yes During Gait Assistive Devices Assistive Device None Orthotic/Prosthetic Devices or Brace: No Gait Deviations General Gait Pattern Decreased Stride Length Comments Gait Comments Pt presents with decreased stride length and right greater than left UE movement with gait. Her meagan slows with cognitive task PT-OP-M Strength Start: 07/27/20 16:14 Freq: Status: Active Protocol: Document 07/30/20 14:27 MB (Rec: 07/30/20 15:47 MB [id number]) Shoulder Strength Shoulder Manual Muscle Testing Left Flexion 5 Normal Abduction (C5) 5 Normal Right Flexion 5 Normal Abduction (C5) 5 Normal Elbow/Forearm Strength Elbow and Forearm Manual Muscle Testing Left Flexion (C6) 5 Normal Extension (C7) 5 Normal Right Flexion (C6) 5 Normal Extension (C7) 5 Normal Hip Strength Hip Manual Muscle Testing Left Flexion (L2) 5 Normal Comments Pt sitting Right Flexion (L2) 5 Normal Comments Pt sitting Knee Strength Knee Manual Muscle Testing Left Flexion (S2) 5 Normal Extension (L3) 5 Normal Right Flexion (S2) 5 Normal Extension (L3) 5 Normal Ankle/Foot Strength Ankle and Foot Manual Muscle Testing Left Dorsiflexion (L4) 5 Normal Right Dorsiflexion (L4) 5 Normal PT-OP-Q Treatments Start: 07/27/20 16:14 Freq: Status: Active Protocol: Document 08/15/20 15:15 AW (Rec: 08/15/20 15:24 AW [id number]) Therapeutic Exercises Sitting Exercises BIG sit to stands Equipment Used teresa disc on chair and blue foam on floor Reps/Minutes 5 reps x 3 Comments last set with only blue foam on floor; emphasis on bigger fwd lean Side to side Side bilateral Equipment Used Firm blue chair in gym Reps/Minutes 4 to each side Comments Cues for BIG Flick and BIG back leg Forward reach Equipment Used Firm blue chair in gym Reps/Minutes 8 reps Comments cues for big hands, flicks Standing Exercises Side rock and reach Side bilateral Equipment Used on tumbling mat Reps/Minutes 10 reps Comments not alternating Forward rock and reach Side bilateral Equipment Used on tumbling mat Reps/Minutes 10 reps Comments improved right arm swing backward without cues Backward step Side bilateral Equipment Used on tumbling mat Reps/Minutes 10 reps Comments not alternating Side step Side bilateral Equipment Used on tumbling mat Reps/Minutes 10 reps Comments not alternating Forward step Side bilateral Equipment Used on tumbling mat Reps/Minutes 10 reps Comments not alternating Therapeutic Activity Therapeutic Activity chopping Reps/Minutes 5' Comments Pt cutting green putty with dull knife, working on using body and shoulders to help with using the knife, powering through her whole self. Making top sheet of bed on small mat table Name Fitted sheet only on treatment room plinth with yoga mat Reps/Minutes 5' Comments Fitted sheet and top sheet donning today. No scuffing with BIG steps today. Conversion slows pt today. Reps: 67 sec, 42 sec, 55 sec, 33 sec, 69 sec Gait Training Gait Activity BIG walking Level of Assistance supervision and cues Surface sidewalks, up and down slight inclines Distance/Duration 15' Treatment Focus BIG arm swing B, amy right Comments focus on R arm back swing only ; still loses swing with distraction or change in condition/surface PT-OP-T Assessment and Plan Start: 07/27/20 16:14 Freq: Status: Active Protocol: Document 08/15/20 15:15 AW (Rec: 08/15/20 16:13 AW [id number]) Physical Therapy Assessment Rehab Potential Rehabilitation Potential Good Evaluation Complexity Number of Personal Factors/Comorbidities 1-2 Number of Body Systems Impaired 1-2 Clinical Presentation at Evaluation Evolving Impairments Impairments Balance,Functional Activities, Functional Mobility,Gait, Posture Goals 4 Fdc Goal (LTG) Pt will perform WNLs on a standardized balance test to decrease fall risk by 08/30/20. 08/14/20: Balance testing deferred today LTG Duration 16 treatments 3 Fdc Goal (LTG) Pt will perform BIG exercises and functional tasks BID with handouts and I to improve amplitude and quality of movement by 08/30/20. 08/14/20: Pt is performing BIG exercises and functional tasks and is occ using LSVT video LTG Duration 16 treatments 2 Fdc Goal (LTG) Pt will gait train at least 1700 feet in 6 minutes with cognitive task intermittently to improve gait speed and endurance by 08/30/20. 08/14/20: Pt gait trains 1675 feet ub 6 minutes today LTG Duration 16 treatments 1 Gate [employer] Goal (LTG) Pt will perform at least 20 reps of sit to stands without UE support in 30 sec to improve functional transfers by 08/30/20. 08/14/20: Pt performs 14 reps sit to stand without UE support today LTG Duration 16 treatments Assessment Summary Assessment Pt shows progress with uncued amplitude adjustments during daily maximal exercises but continues to lose amplitude adjustment during gait with most distractions or changes in condition or surface. Pt certainly shows good stimulability and is expected to be able to improve calibration with BIG treatment per protocol. Physical Therapy Plan Frequency and Duration Frequency of Treatment 16 treatments Duration of Treatment 16 treatments Plan of Care Start Date 07/30/20 Plan of Care End Date 08/30/20 Therapeutic Interventions Therapeutic Interventions Balance Training,Canalithic Repositioning,Coordination Training,Gait Training,Home Exercise Program,Neuromuscular Re-education,Patient/ Caregiver Education,Self-Care/ Home Management,Sensory Integration,Therapeutic Activities,Therapeutic Exercises Modalities Cold Pack/Ice Massage,Hot Packs Next Visit Focus/Plan Next Note Type Treatment Note Next Visit Plan Con't flicks, consider balance challenge with gait such as foam pads, simple turns, walking around or over obstacles. Check orthostatics as needed
--- NOTE | 2020-08-16 15:34 | PT.OTN ---
Current Diagnoses Parkinson's disease (08/16/20) Physical Therapy Treatment Note PT-OP-A Visit Information Start: 07/27/20 16:14 Freq: Status: Active Protocol: Document 08/16/20 14:20 MB (Rec: 08/16/20 15:34 MB [id number]) Out-Patient Physical Therapy Visit Information Visit Information Visit Type Treatment Note Visit Note Medicare Visit Start Time 14:20 Visit Stop Time 15:19 Total Visit Minutes 59 Visit Number 12 PT-OP-B Current Condition Start: 07/27/20 16:14 Freq: Status: Active Protocol: Document 07/30/20 14:27 MB (Rec: 07/30/20 14:23 MB [id number]) Current Condition History of Current Condition Onset Date 2014 Current Complaints Right arm tremor, imbalance, decreased mental clarity, moving slowly History of Current Condition 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 Pt reports first symptoms was right arm shaking when typing. She gets cold easily. She lists her initial symptoms of PD were tremors, gait, small handwriting, balance when tested. 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 She feels like she occ spins. Pt states that she gets a lot of neck tension because she is cold a lot. Pt reports left hip pain. Pt takes Carbidopa Levodopa 3x/day. She states that her medication decreases her tremor and helps with mind clarity. Pt lives with a house mate. She has two steps and 1 rail rail to enter. She likes walking for exercise. She does better if she has a destination or someone to walk with. She feels like she gets winded easily. She likes to hike occasionally. Pt has not had any falls. Treatment Goals Patient/Caregiver Goals Pt's goals for therapy include discovering exercises to keep PD at bay. Prior Functional Status Baseline Function- ADL's Independent Baseline Function- Mobility Independent PT-OP-C Subjective Start: 07/27/20 16:14 Freq: Status: Active Protocol: Document 08/16/20 14:20 MB (Rec: 08/16/20 15:34 MB [id number]) OP-PT Subjective Patient Comments Patient Comments Pt noticed that she started going small when cutting vegetables last night and she adjusted how she was doing things. PT-OP-D Balance Start: 07/27/20 16:14 Freq: Status: Active Protocol: Document 07/30/20 14:27 MB (Rec: 07/30/20 15:47 MB [id number]) Balance Tests Other Other Balance Tests Performed See below for balance testing today PT-OP-G Mobility & Gait Start: 07/27/20 16:14 Freq: Status: Active Protocol: Document 07/30/20 14:27 MB (Rec: 07/30/20 15:47 MB [id number]) OP Gait Assessment Gait Gait Assistance Required: Independent Distance (Feet) 1,574 Able to Maintain Weight Bearing Status Yes During Gait Assistive Devices Assistive Device None Orthotic/Prosthetic Devices or Brace: No Gait Deviations General Gait Pattern Decreased Stride Length Comments Gait Comments Pt presents with decreased stride length and right greater than left UE movement with gait. Her meagan slows with cognitive task PT-OP-M Strength Start: 07/27/20 16:14 Freq: Status: Active Protocol: Document 07/30/20 14:27 MB (Rec: 07/30/20 15:47 MB [id number]) Shoulder Strength Shoulder Manual Muscle Testing Left Flexion 5 Normal Abduction (C5) 5 Normal Right Flexion 5 Normal Abduction (C5) 5 Normal Elbow/Forearm Strength Elbow and Forearm Manual Muscle Testing Left Flexion (C6) 5 Normal Extension (C7) 5 Normal Right Flexion (C6) 5 Normal Extension (C7) 5 Normal Hip Strength Hip Manual Muscle Testing Left Flexion (L2) 5 Normal Comments Pt sitting Right Flexion (L2) 5 Normal Comments Pt sitting Knee Strength Knee Manual Muscle Testing Left Flexion (S2) 5 Normal Extension (L3) 5 Normal Right Flexion (S2) 5 Normal Extension (L3) 5 Normal Ankle/Foot Strength Ankle and Foot Manual Muscle Testing Left Dorsiflexion (L4) 5 Normal Right Dorsiflexion (L4) 5 Normal PT-OP-Q Treatments Start: 07/27/20 16:14 Freq: Status: Active Protocol: Document 08/16/20 14:20 MB (Rec: 08/16/20 15:34 MB [id number]) Therapeutic Exercises Sitting Exercises BIG sit to stands Equipment Used Mat in room, standing on blue foam Reps/Minutes 15 reps Comments Improvement today Side to side Side bilateral Equipment Used Mat in room Reps/Minutes 5 to each side, alternating Comments Cues for BIG Flick and BIG back leg Forward reach Equipment Used Mat in room Reps/Minutes 5 reps Comments Flicks with exercise Standing Exercises Side rock and reach Side bilateral Reps/Minutes 10 reps Comments Alternating, Cues for BIG arms and pivot to left Forward rock and reach Side bilateral Reps/Minutes 10 reps Comments Much improvement today, good BIG hands Backward step Side bilateral Reps/Minutes 10 reps Comments Alternating and pt requires cues for BIG front toe Side step Side bilateral Reps/Minutes 10 reps Comments Flicks and alternating Forward step Side bilateral Reps/Minutes 10 reps Comments Flicks and alternating Therapeutic Activity Therapeutic Activity writing Reps/Minutes 5' Comments BIG writing with cognitive task of writing alphabet forwards and backwards and pt has trouble with accuracy of alphabet backwards and writing does tend to get smaller chopping Reps/Minutes 3' Comments Pt cutting green putty with dull knife, working on using body and shoulders to help with using the knife, powering through her whole self. Making top sheet of bed on small mat table Name Fitted and top sheet on treatment room plinth with yoga mat Reps/Minutes 7' Comments Fitted sheet and top sheet donning today. No scuffing with BIG steps today. Improved time x6 reps with PT talking with pt Donning and doffing gloves Reps/Minutes 5' Comments Pt standing and holding both knitted gloves in her hands, 5 reps and slower with cognitive task of talking with PT Gait Training Gait Activity BIG walking Level of Assistance supervision and cues Surface Carpet, tile, over mini hurdles Distance/Duration 15' Treatment Focus BIG arm swing B, amy right Comments Cues for R arm back swing only ; still loses swing with distraction or change in condition/surface, rigid arm when walking over sveta PT-OP-T Assessment and Plan Start: 07/27/20 16:14 Freq: Status: Active Protocol: Document 08/16/20 14:20 MB (Rec: 08/16/20 15:34 MB [id number]) Physical Therapy Assessment Rehab Potential Rehabilitation Potential Good Evaluation Complexity Number of Personal Factors/Comorbidities 1-2 Number of Body Systems Impaired 1-2 Clinical Presentation at Evaluation Evolving Impairments Impairments Balance,Functional Activities, Functional Mobility,Gait, Posture Goals 4 Group Home Goal (LTG) Pt will perform WNLs on a standardized balance test to decrease fall risk by 08/30/20. 08/14/20: Balance testing deferred today LTG Duration 16 treatments 3 Group Home Goal (LTG) Pt will perform BIG exercises and functional tasks BID with handouts and I to improve amplitude and quality of movement by 08/30/20. 08/14/20: Pt is performing BIG exercises and functional tasks and is occ using LSVT video LTG Duration 16 treatments 2 Group Home Goal (LTG) Pt will gait train at least 1700 feet in 6 minutes with cognitive task intermittently to improve gait speed and endurance by 08/30/20. 08/14/20: Pt gait trains 1675 feet ub 6 minutes today LTG Duration 16 treatments 1 Plant Quality Manager Goal (LTG) Pt will perform at least 20 reps of sit to stands without UE support in 30 sec to improve functional transfers by 08/30/20. 08/14/20: Pt performs 14 reps sit to stand without UE support today LTG Duration 16 treatments Assessment Summary Assessment Progressed gait challenge today with hurdles and pt keeps right arm stiff when stepping over hurdles. Con't to progress balance challenges with standing exercises. Physical Therapy Plan Frequency and Duration Frequency of Treatment 16 treatments Duration of Treatment 16 treatments Plan of Care Start Date 07/30/20 Plan of Care End Date 08/30/20 Therapeutic Interventions Therapeutic Interventions Balance Training,Canalithic Repositioning,Coordination Training,Gait Training,Home Exercise Program,Neuromuscular Re-education,Patient/ Caregiver Education,Self-Care/ Home Management,Sensory Integration,Therapeutic Activities,Therapeutic Exercises Modalities Cold Pack/Ice Massage,Hot Packs Next Visit Focus/Plan Next Note Type Treatment Note Next Visit Plan Con't balance challenge with gait and standing exercises. Check orthostatics as needed
--- NOTE | 2020-08-20 15:30 | PT.OTN ---
Current Diagnoses Parkinson's disease (08/20/20) Physical Therapy Treatment Note PT-OP-A Visit Information Start: 07/27/20 16:14 Freq: Status: Active Protocol: Document 08/20/20 14:15 MB (Rec: 08/20/20 15:30 MB [id number]) Out-Patient Physical Therapy Visit Information Visit Information Visit Type Treatment Note Visit Note Medicare Visit Start Time 14:15 Visit Stop Time 15:10 Total Visit Minutes 55 Visit Number 13 PT-OP-B Current Condition Start: 07/27/20 16:14 Freq: Status: Active Protocol: Document 07/30/20 14:27 MB (Rec: 07/30/20 14:23 MB [id number]) Current Condition History of Current Condition Onset Date 2014 Current Complaints Right arm tremor, imbalance, decreased mental clarity, moving slowly History of Current Condition 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 Pt reports first symptoms was right arm shaking when typing. She gets cold easily. She lists her initial symptoms of PD were tremors, gait, small handwriting, balance when tested. 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 She feels like she occ spins. Pt states that she gets a lot of neck tension because she is cold a lot. Pt reports left hip pain. Pt takes Carbidopa Levodopa 3x/day. She states that her medication decreases her tremor and helps with mind clarity. Pt lives with a house mate. She has two steps and 1 rail rail to enter. She likes walking for exercise. She does better if she has a destination or someone to walk with. She feels like she gets winded easily. She likes to hike occasionally. Pt has not had any falls. Treatment Goals Patient/Caregiver Goals Pt's goals for therapy include discovering exercises to keep PD at bay. Prior Functional Status Baseline Function- ADL's Independent Baseline Function- Mobility Independent PT-OP-C Subjective Start: 07/27/20 16:14 Freq: Status: Active Protocol: Document 08/20/20 14:15 MB (Rec: 08/20/20 15:30 MB [id number]) OP-PT Subjective Patient Comments Patient Comments Pt states that she had a good weekend. She noticed that her shoulders are forward in the mirror and she wants to work on bringing them backwards. PT-OP-D Balance Start: 07/27/20 16:14 Freq: Status: Active Protocol: Document 07/30/20 14:27 MB (Rec: 07/30/20 15:47 MB [id number]) Balance Tests Other Other Balance Tests Performed See below for balance testing today PT-OP-G Mobility & Gait Start: 07/27/20 16:14 Freq: Status: Active Protocol: Document 07/30/20 14:27 MB (Rec: 07/30/20 15:47 MB [id number]) OP Gait Assessment Gait Gait Assistance Required: Independent Distance (Feet) 1,574 Able to Maintain Weight Bearing Status Yes During Gait Assistive Devices Assistive Device None Orthotic/Prosthetic Devices or Brace: No Gait Deviations General Gait Pattern Decreased Stride Length Comments Gait Comments Pt presents with decreased stride length and right greater than left UE movement with gait. Her meagan slows with cognitive task PT-OP-M Strength Start: 07/27/20 16:14 Freq: Status: Active Protocol: Document 07/30/20 14:27 MB (Rec: 07/30/20 15:47 MB [id number]) Shoulder Strength Shoulder Manual Muscle Testing Left Flexion 5 Normal Abduction (C5) 5 Normal Right Flexion 5 Normal Abduction (C5) 5 Normal Elbow/Forearm Strength Elbow and Forearm Manual Muscle Testing Left Flexion (C6) 5 Normal Extension (C7) 5 Normal Right Flexion (C6) 5 Normal Extension (C7) 5 Normal Hip Strength Hip Manual Muscle Testing Left Flexion (L2) 5 Normal Comments Pt sitting Right Flexion (L2) 5 Normal Comments Pt sitting Knee Strength Knee Manual Muscle Testing Left Flexion (S2) 5 Normal Extension (L3) 5 Normal Right Flexion (S2) 5 Normal Extension (L3) 5 Normal Ankle/Foot Strength Ankle and Foot Manual Muscle Testing Left Dorsiflexion (L4) 5 Normal Right Dorsiflexion (L4) 5 Normal PT-OP-Q Treatments Start: 07/27/20 16:14 Freq: Status: Active Protocol: Document 08/20/20 14:15 MB (Rec: 08/20/20 15:30 MB [id number]) Therapeutic Exercises Sitting Exercises BIG sit to stands Equipment Used Teal chair in gym, blue gym mat under feet Reps/Minutes 15 reps Comments One episode unsteadiness when moving to sitting d/t lower chair Side to side Side bilateral Equipment Used Teal chair in gym Reps/Minutes 6 to each side, alternating Comments Cues for BIG flick and BIG effort Forward reach Equipment Used Teal chair in gym Reps/Minutes 5 reps Comments Cues for BIG effort flick Standing Exercises Side rock and reach Side bilateral Equipment Used Blue gym mat Reps/Minutes 10 reps Comments Alternating, Cues for BIG arms and pivot to left Forward rock and reach Side bilateral Equipment Used Blue gym mat Reps/Minutes 10 reps Comments More trouble BIG front toe on mat Backward step Side bilateral Equipment Used Blue gym mat Reps/Minutes 10 reps Comments Alternating, cues for BIG front toe and BIG hands Side step Side bilateral Equipment Used Blue gym mat Reps/Minutes 10 reps Comments Flicks and alternating, cues for BIG effort Forward step Side bilateral Equipment Used Blue gym mat Reps/Minutes 10 reps Comments Flicks and alternating, cues for BIG effort Therapeutic Activity Therapeutic Activity writing Reps/Minutes 5' Comments Pt standing on blue gym mat. BIG writing of name and check amounts, she is able to keep font bigger today chopping Reps/Minutes 3' Comments Pt standing on blue gym mat. Pt cutting green putty with dull knife, working on using body and shoulders to help with using the knife, powering through her whole self. Making top sheet of bed on small mat table Comments Mat unavailable today Donning and doffing gloves Reps/Minutes 5' Comments Pt standing on blue gym mat and holding both knitted gloves in her hands, 5 reps: 14 sec, 13 sec, 15 sec, 12 sec , 11 sec, much improved Gait Training Gait Activity BIG walking Level of Assistance supervision and cues Surface Sidewalk, pavement, grass and gravel Distance/Duration 15' Treatment Focus BIG arm swing B, amy right Comments With conversation and with direct sunlight and blocking eyes with left hand, pt tends to stop right arm swing completely, holding arm against body. Cues to con't arm swing, BIG hand PT-OP-T Assessment and Plan Start: 07/27/20 16:14 Freq: Status: Active Protocol: Document 08/20/20 14:15 MB (Rec: 08/20/20 15:30 MB [id number]) Physical Therapy Assessment Rehab Potential Rehabilitation Potential Good Evaluation Complexity Number of Personal Factors/Comorbidities 1-2 Number of Body Systems Impaired 1-2 Clinical Presentation at Evaluation Evolving Impairments Impairments Balance,Functional Activities, Functional Mobility,Gait, Posture Goals 4 Retirement Goal (LTG) Pt will perform WNLs on a standardized balance test to decrease fall risk by 08/30/20. 08/14/20: Balance testing deferred today LTG Duration 16 treatments 3 Professor Of Biochemistry Goal (LTG) Pt will perform BIG exercises and functional tasks BID with handouts and I to improve amplitude and quality of movement by 08/30/20. 08/14/20: Pt is performing BIG exercises and functional tasks and is occ using LSVT video LTG Duration 16 treatments 2 Retirement Goal (LTG) Pt will gait train at least 1700 feet in 6 minutes with cognitive task intermittently to improve gait speed and endurance by 08/30/20. 08/14/20: Pt gait trains 1675 feet ub 6 minutes today LTG Duration 16 treatments 1 Professor Of Biochemistry Goal (LTG) Pt will perform at least 20 reps of sit to stands without UE support in 30 sec to improve functional transfers by 08/30/20. 08/14/20: Pt performs 14 reps sit to stand without UE support today LTG Duration 16 treatments Assessment Summary Assessment Ed pt on benefits of compression hose today and provided handout with instructions for thigh highs vs compression tights, how to measure if needed and no more than 15-25 mmHg to help with reports of light-headedness when moving from bent to standing with work. Pt improves with exercises with balance challenge today. She con't to guard/freeze with the right arm with different tasks with gait. Con't progression. Physical Therapy Plan Frequency and Duration Frequency of Treatment 16 treatments Duration of Treatment 16 treatments Plan of Care Start Date 07/30/20 Plan of Care End Date 08/30/20 Therapeutic Interventions Therapeutic Interventions Balance Training,Canalithic Repositioning,Coordination Training,Gait Training,Home Exercise Program,Neuromuscular Re-education,Patient/ Caregiver Education,Self-Care/ Home Management,Sensory Integration,Therapeutic Activities,Therapeutic Exercises Modalities Cold Pack/Ice Massage,Hot Packs Next Visit Focus/Plan Next Note Type Treatment Note Next Visit Plan Con't balance challenge with gait and standing exercises. Check orthostatics as needed
--- NOTE | 2020-08-21 15:40 | PT.OTN ---
Current Diagnoses Parkinson's disease (08/21/20) Physical Therapy Treatment Note PT-OP-A Visit Information Start: 07/27/20 16:14 Freq: Status: Active Protocol: Document 08/21/20 14:17 MB (Rec: 08/21/20 15:40 MB [id number]) Out-Patient Physical Therapy Visit Information Visit Information Visit Type Treatment Note Visit Note Medicare Visit Start Time 14:17 Visit Stop Time 15:19 Total Visit Minutes 62 Visit Number 14 PT-OP-B Current Condition Start: 07/27/20 16:14 Freq: Status: Active Protocol: Document 07/30/20 14:27 MB (Rec: 07/30/20 14:23 MB [id number]) Current Condition History of Current Condition Onset Date 2014 Current Complaints Right arm tremor, imbalance, decreased mental clarity, moving slowly History of Current Condition 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 Pt reports first symptoms was right arm shaking when typing. She gets cold easily. She lists her initial symptoms of PD were tremors, gait, small handwriting, balance when tested. 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 She feels like she occ spins. Pt states that she gets a lot of neck tension because she is cold a lot. Pt reports left hip pain. Pt takes Carbidopa Levodopa 3x/day. She states that her medication decreases her tremor and helps with mind clarity. Pt lives with a house mate. She has two steps and 1 rail rail to enter. She likes walking for exercise. She does better if she has a destination or someone to walk with. She feels like she gets winded easily. She likes to hike occasionally. Pt has not had any falls. Treatment Goals Patient/Caregiver Goals Pt's goals for therapy include discovering exercises to keep PD at bay. Prior Functional Status Baseline Function- ADL's Independent Baseline Function- Mobility Independent PT-OP-C Subjective Start: 07/27/20 16:14 Freq: Status: Active Protocol: Document 08/21/20 14:17 MB (Rec: 08/21/20 15:40 MB [id number]) OP-PT Subjective Patient Comments Patient Comments Pt states that she is doing well. PT-OP-D Balance Start: 07/27/20 16:14 Freq: Status: Active Protocol: Document 07/30/20 14:27 MB (Rec: 07/30/20 15:47 MB [id number]) Balance Tests Other Other Balance Tests Performed See below for balance testing today PT-OP-G Mobility & Gait Start: 07/27/20 16:14 Freq: Status: Active Protocol: Document 07/30/20 14:27 MB (Rec: 07/30/20 15:47 MB [id number]) OP Gait Assessment Gait Gait Assistance Required: Independent Distance (Feet) 1,574 Able to Maintain Weight Bearing Status Yes During Gait Assistive Devices Assistive Device None Orthotic/Prosthetic Devices or Brace: No Gait Deviations General Gait Pattern Decreased Stride Length Comments Gait Comments Pt presents with decreased stride length and right greater than left UE movement with gait. Her meagan slows with cognitive task PT-OP-M Strength Start: 07/27/20 16:14 Freq: Status: Active Protocol: Document 07/30/20 14:27 MB (Rec: 07/30/20 15:47 MB [id number]) Shoulder Strength Shoulder Manual Muscle Testing Left Flexion 5 Normal Abduction (C5) 5 Normal Right Flexion 5 Normal Abduction (C5) 5 Normal Elbow/Forearm Strength Elbow and Forearm Manual Muscle Testing Left Flexion (C6) 5 Normal Extension (C7) 5 Normal Right Flexion (C6) 5 Normal Extension (C7) 5 Normal Hip Strength Hip Manual Muscle Testing Left Flexion (L2) 5 Normal Comments Pt sitting Right Flexion (L2) 5 Normal Comments Pt sitting Knee Strength Knee Manual Muscle Testing Left Flexion (S2) 5 Normal Extension (L3) 5 Normal Right Flexion (S2) 5 Normal Extension (L3) 5 Normal Ankle/Foot Strength Ankle and Foot Manual Muscle Testing Left Dorsiflexion (L4) 5 Normal Right Dorsiflexion (L4) 5 Normal PT-OP-Q Treatments Start: 07/27/20 16:14 Freq: Status: Active Protocol: Document 08/21/20 14:17 MB (Rec: 08/21/20 15:40 MB [id number]) Therapeutic Exercises Sitting Exercises BIG sit to stands Equipment Used Teal chair in gym, blue gym mat under feet Reps/Minutes 15 reps Comments No unsteadiness today Side to side Side bilateral Equipment Used Teal chair in gym Reps/Minutes 5 to each side, alternating Comments Cues for BIG flick and BIG effort Forward reach Equipment Used Teal chair in gym Reps/Minutes 5 reps Comments Cues for BIG effort flick Standing Exercises Side rock and reach Side bilateral Equipment Used Blue gym mat Reps/Minutes 10 reps Comments Improved BIG effort today Forward rock and reach Side bilateral Equipment Used Blue gym mat Reps/Minutes 10 reps Comments Improved BIG front toe today Backward step Side bilateral Equipment Used Blue gym mat Reps/Minutes 10 reps Comments Improved today Side step Side bilateral Equipment Used Blue gym mat Reps/Minutes 10 reps Comments Flicks and alternating, cues for BIG effort Forward step Side bilateral Equipment Used Blue gym mat Reps/Minutes 10 reps Comments Alternating, flicks and better BIG effort today Therapeutic Activity Therapeutic Activity writing Reps/Minutes 6' Comments Pt standing on blue gym mat. BIG writing of name and check amounts, font size decreases with talking chopping Reps/Minutes 3' Comments Pt standing on blue gym mat. Pt cutting green putty with dull knife, working on using body and shoulders to help with using the knife, powering through her whole self. Making top sheet of bed on small mat table Name Fitted bottom and top sheet Reps/Minutes 7' Comments Sheets with static today. Reps : 35 sec, 46 sec, 41 sec, 49 sec, 62 sec Donning and doffing gloves Reps/Minutes 5' Comments Pt standing on blue gym mat and holding both isotonic-type gloves in her hands, 5 reps: 13 sec, 14 sec, 11 sec, 13 sec , 11 sec Gait Training Gait Activity BIG walking Level of Assistance supervision and cues Surface Tile, carpet, blue mat Distance/Duration 17' Treatment Focus BIG arm swing B, amy right Comments With conversation right arm with decrease BIG hand and fingers and extension PT-OP-T Assessment and Plan Start: 07/27/20 16:14 Freq: Status: Active Protocol: Document 08/21/20 14:17 MB (Rec: 08/21/20 15:40 MB [id number]) Physical Therapy Assessment Rehab Potential Rehabilitation Potential Good Evaluation Complexity Number of Personal Factors/Comorbidities 1-2 Number of Body Systems Impaired 1-2 Clinical Presentation at Evaluation Evolving Impairments Impairments Balance,Functional Activities, Functional Mobility,Gait, Posture Goals 4 Shipboard Intelligence Analyst Goal (LTG) Pt will perform WNLs on a standardized balance test to decrease fall risk by 08/30/20. 08/14/20: Balance testing deferred today LTG Duration 16 treatments 3 [facility] Goal (LTG) Pt will perform BIG exercises and functional tasks BID with handouts and I to improve amplitude and quality of movement by 08/30/20. 08/14/20: Pt is performing BIG exercises and functional tasks and is occ using LSVT video LTG Duration 16 treatments 2 Shipboard Intelligence Analyst Goal (LTG) Pt will gait train at least 1700 feet in 6 minutes with cognitive task intermittently to improve gait speed and endurance by 08/30/20. 08/14/20: Pt gait trains 1675 feet ub 6 minutes today LTG Duration 16 treatments 1 [facility] Goal (LTG) Pt will perform at least 20 reps of sit to stands without UE support in 30 sec to improve functional transfers by 08/30/20. 08/14/20: Pt performs 14 reps sit to stand without UE support today LTG Duration 16 treatments Assessment Summary Assessment Less rest between tasks today and more time with functional tasks and standing on blue mat . Pt talks more with activity and this does affect speed and big arm swing with gait. Overall, she performs her exercises much bigger today. Physical Therapy Plan Frequency and Duration Frequency of Treatment 16 treatments Duration of Treatment 16 treatments Plan of Care Start Date 07/30/20 Plan of Care End Date 08/30/20 Therapeutic Interventions Therapeutic Interventions Balance Training,Canalithic Repositioning,Coordination Training,Gait Training,Home Exercise Program,Neuromuscular Re-education,Patient/ Caregiver Education,Self-Care/ Home Management,Sensory Integration,Therapeutic Activities,Therapeutic Exercises Modalities Cold Pack/Ice Massage,Hot Packs Next Visit Focus/Plan Next Note Type Treatment Note Next Visit Plan Con't balance challenge with gait and standing exercises. Check orthostatics as needed
--- NOTE | 2020-08-23 15:41 | PT.OTN ---
Current Diagnoses Parkinson's disease (08/23/20) Physical Therapy Treatment Note PT-OP-A Visit Information Start: 07/27/20 16:14 Freq: Status: Active Protocol: Document 08/23/20 14:15 MB (Rec: 08/23/20 15:40 MB [id number]) Out-Patient Physical Therapy Visit Information Visit Information Visit Type Treatment Note Visit Note Medicare Visit Start Time 14:15 Visit Stop Time 15:15 Total Visit Minutes 60 Visit Number 15 PT-OP-B Current Condition Start: 07/27/20 16:14 Freq: Status: Active Protocol: Document 07/30/20 14:27 MB (Rec: 07/30/20 14:23 MB [id number]) Current Condition History of Current Condition Onset Date 2014 Current Complaints Right arm tremor, imbalance, decreased mental clarity, moving slowly History of Current Condition 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 Pt reports first symptoms was right arm shaking when typing. She gets cold easily. She lists her initial symptoms of PD were tremors, gait, small handwriting, balance when tested. 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 She feels like she occ spins. Pt states that she gets a lot of neck tension because she is cold a lot. Pt reports left hip pain. Pt takes Carbidopa Levodopa 3x/day. She states that her medication decreases her tremor and helps with mind clarity. Pt lives with a house mate. She has two steps and 1 rail rail to enter. She likes walking for exercise. She does better if she has a destination or someone to walk with. She feels like she gets winded easily. She likes to hike occasionally. Pt has not had any falls. Treatment Goals Patient/Caregiver Goals Pt's goals for therapy include discovering exercises to keep PD at bay. Prior Functional Status Baseline Function- ADL's Independent Baseline Function- Mobility Independent PT-OP-C Subjective Start: 07/27/20 16:14 Freq: Status: Active Protocol: Document 08/23/20 14:15 MB (Rec: 08/23/20 15:40 MB [id number]) OP-PT Subjective Patient Comments Patient Comments Pt is feeling better after post-COVID shot symptoms two days ago. She missed yesterday 's treatment d/t symptoms. PT-OP-D Balance Start: 07/27/20 16:14 Freq: Status: Active Protocol: Document 07/30/20 14:27 MB (Rec: 07/30/20 15:47 MB [id number]) Balance Tests Other Other Balance Tests Performed See below for balance testing today PT-OP-G Mobility & Gait Start: 07/27/20 16:14 Freq: Status: Active Protocol: Document 07/30/20 14:27 MB (Rec: 07/30/20 15:47 MB [id number]) OP Gait Assessment Gait Gait Assistance Required: Independent Distance (Feet) 1,574 Able to Maintain Weight Bearing Status Yes During Gait Assistive Devices Assistive Device None Orthotic/Prosthetic Devices or Brace: No Gait Deviations General Gait Pattern Decreased Stride Length Comments Gait Comments Pt presents with decreased stride length and right greater than left UE movement with gait. Her meagan slows with cognitive task PT-OP-M Strength Start: 07/27/20 16:14 Freq: Status: Active Protocol: Document 07/30/20 14:27 MB (Rec: 07/30/20 15:47 MB [id number]) Shoulder Strength Shoulder Manual Muscle Testing Left Flexion 5 Normal Abduction (C5) 5 Normal Right Flexion 5 Normal Abduction (C5) 5 Normal Elbow/Forearm Strength Elbow and Forearm Manual Muscle Testing Left Flexion (C6) 5 Normal Extension (C7) 5 Normal Right Flexion (C6) 5 Normal Extension (C7) 5 Normal Hip Strength Hip Manual Muscle Testing Left Flexion (L2) 5 Normal Comments Pt sitting Right Flexion (L2) 5 Normal Comments Pt sitting Knee Strength Knee Manual Muscle Testing Left Flexion (S2) 5 Normal Extension (L3) 5 Normal Right Flexion (S2) 5 Normal Extension (L3) 5 Normal Ankle/Foot Strength Ankle and Foot Manual Muscle Testing Left Dorsiflexion (L4) 5 Normal Right Dorsiflexion (L4) 5 Normal PT-OP-Q Treatments Start: 07/27/20 16:14 Freq: Status: Active Protocol: Document 08/23/20 14:15 MB (Rec: 08/23/20 15:40 MB [id number]) Therapeutic Exercises Sitting Exercises BIG sit to stands Equipment Used Mesh chair in gym, blue gym mat under feet Reps/Minutes 15 reps Comments No unsteadiness today Side to side Side bilateral Equipment Used Mesh chair in gym Reps/Minutes 5 to each side, alternating Comments Better BIG flick and effort Forward reach Equipment Used Mesh chair in gym Reps/Minutes 5 reps Comments Better big effort today Standing Exercises Side rock and reach Side bilateral Equipment Used Blue gym mat Reps/Minutes 10 reps Comments Improved BIG effort today Forward rock and reach Side bilateral Equipment Used Blue gym mat Reps/Minutes 10 reps Comments Better effort today, cues for hand position Backward step Side bilateral Equipment Used Blue gym mat Reps/Minutes 10 reps Comments Improved today Side step Side bilateral Equipment Used Blue gym mat Reps/Minutes 10 reps Comments Better big effort today Forward step Side bilateral Equipment Used Blue gym mat Reps/Minutes 10 reps Comments Alternating, flicks and better BIG effort today Therapeutic Activity Therapeutic Activity writing Reps/Minutes 5' Comments Pt standing on blue gym mat. BIG writing of things she likes about her grandmother, name and check amounts, font size decreases with talking chopping Reps/Minutes 3' Comments Thicker putty today. Pt standing on blue gym mat. Pt cutting green putty with dull knife, working on using body and shoulders to help with using the knife, powering through her whole self. Making top sheet of bed on small mat table Name Fitted bottom and top sheet Reps/Minutes 6' Comments Sheets with static today. Reps : 36 sec, 29 sec, 31 sec, 31 sec, 37 sec Donning and doffing gloves Reps/Minutes 5' Comments Pt standing on blue gym mat and holding both isotonic-type gloves in her hands, 5 reps: 13 sec, 12 sec, 11 sec, 12 sec , 14 sec Gait Training Gait Activity BIG walking Level of Assistance supervision and cues Surface Tile, carpet, blue mat and balance beam Distance/Duration 15' Treatment Focus BIG arm swing B, amy right Comments Improved big arm swing today, conversation con't to be a challenge for maintaining big movement PT-OP-T Assessment and Plan Start: 07/27/20 16:14 Freq: Status: Active Protocol: Document 08/23/20 14:15 MB (Rec: 08/23/20 15:40 MB [id number]) Physical Therapy Assessment Rehab Potential Rehabilitation Potential Good Evaluation Complexity Number of Personal Factors/Comorbidities 1-2 Number of Body Systems Impaired 1-2 Clinical Presentation at Evaluation Evolving Impairments Impairments Balance,Functional Activities, Functional Mobility,Gait, Posture Goals 4 [facility] Goal (LTG) Pt will perform WNLs on a standardized balance test to decrease fall risk by 08/30/20. 08/14/20: Balance testing deferred today LTG Duration 16 treatments 3 Therapeutic Support Staff Goal (LTG) Pt will perform BIG exercises and functional tasks BID with handouts and I to improve amplitude and quality of movement by 08/30/20. 08/14/20: Pt is performing BIG exercises and functional tasks and is occ using LSVT video LTG Duration 16 treatments 2 Therapeutic Support Staff Goal (LTG) Pt will gait train at least 1700 feet in 6 minutes with cognitive task intermittently to improve gait speed and endurance by 08/30/20. 08/14/20: Pt gait trains 1675 feet ub 6 minutes today LTG Duration 16 treatments 1 Therapeutic Support Staff Goal (LTG) Pt will perform at least 20 reps of sit to stands without UE support in 30 sec to improve functional transfers by 08/30/20. 08/14/20: Pt performs 14 reps sit to stand without UE support today LTG Duration 16 treatments Assessment Summary Assessment Pt improves with big arm swing today. She missed yesterday's appointment d/t reaction from [facility] and so re- scheduled an appointment for next week for d/c. Physical Therapy Plan Frequency and Duration Frequency of Treatment 16 treatments Duration of Treatment 16 treatments Plan of Care Start Date 07/30/20 Plan of Care End Date 08/30/20 Therapeutic Interventions Therapeutic Interventions Balance Training,Canalithic Repositioning,Coordination Training,Gait Training,Home Exercise Program,Neuromuscular Re-education,Patient/ Caregiver Education,Self-Care/ Home Management,Sensory Integration,Therapeutic Activities,Therapeutic Exercises Modalities Cold Pack/Ice Massage,Hot Packs Next Visit Focus/Plan Next Note Type Discharge Summary
--- NOTE | 2020-09-06 15:28 | PT.OTN ---
Current Diagnoses Parkinson's disease (09/06/20) Physical Therapy Treatment Note PT-OP-A Visit Information Start: 07/27/20 16:14 Freq: Status: Active Protocol: Document 09/06/20 14:16 MB (Rec: 09/06/20 15:07 MB [id number]) Out-Patient Physical Therapy Visit Information Visit Information Visit Type Treatment Note Visit Note Medicare Visit Start Time 14:16 Visit Stop Time 15:09 Total Visit Minutes 53 Visit Number 16 PT-OP-B Current Condition Start: 07/27/20 16:14 Freq: Status: Active Protocol: Document 07/30/20 14:27 MB (Rec: 07/30/20 14:23 MB [id number]) Current Condition History of Current Condition Onset Date 2014 Current Complaints Right arm tremor, imbalance, decreased mental clarity, moving slowly History of Current Condition 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 Pt reports first symptoms was right arm shaking when typing. She gets cold easily. She lists her initial symptoms of PD were tremors, gait, small handwriting, balance when tested. 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 She feels like she occ spins. Pt states that she gets a lot of neck tension because she is cold a lot. Pt reports left hip pain. Pt takes Carbidopa Levodopa 3x/day. She states that her medication decreases her tremor and helps with mind clarity. Pt lives with a house mate. She has two steps and 1 rail rail to enter. She likes walking for exercise. She does better if she has a destination or someone to walk with. She feels like she gets winded easily. She likes to hike occasionally. Pt has not had any falls. Treatment Goals Patient/Caregiver Goals Pt's goals for therapy include discovering exercises to keep PD at bay. Prior Functional Status Baseline Function- ADL's Independent Baseline Function- Mobility Independent PT-OP-C Subjective Start: 07/27/20 16:14 Freq: Status: Active Protocol: Document 09/06/20 14:16 MB (Rec: 09/06/20 15:07 MB [id number]) OP-PT Subjective Patient Comments Patient Comments Pt has questions about the LSVT homework helper DVDs and PT emails [facility] to address question. Pt is working on her BIG arm swing with gait. PT-OP-D Balance Start: 07/27/20 16:14 Freq: Status: Active Protocol: Document 07/30/20 14:27 MB (Rec: 07/30/20 15:47 MB [id number]) Balance Tests Other Other Balance Tests Performed See below for balance testing today PT-OP-G Mobility & Gait Start: 07/27/20 16:14 Freq: Status: Active Protocol: Document 07/30/20 14:27 MB (Rec: 07/30/20 15:47 MB [id number]) OP Gait Assessment Gait Gait Assistance Required: Independent Distance (Feet) 1,574 Able to Maintain Weight Bearing Status Yes During Gait Assistive Devices Assistive Device None Orthotic/Prosthetic Devices or Brace: No Gait Deviations General Gait Pattern Decreased Stride Length Comments Gait Comments Pt presents with decreased stride length and right greater than left UE movement with gait. Her meagan slows with cognitive task PT-OP-M Strength Start: 07/27/20 16:14 Freq: Status: Active Protocol: Document 07/30/20 14:27 MB (Rec: 07/30/20 15:47 MB [id number]) Shoulder Strength Shoulder Manual Muscle Testing Left Flexion 5 Normal Abduction (C5) 5 Normal Right Flexion 5 Normal Abduction (C5) 5 Normal Elbow/Forearm Strength Elbow and Forearm Manual Muscle Testing Left Flexion (C6) 5 Normal Extension (C7) 5 Normal Right Flexion (C6) 5 Normal Extension (C7) 5 Normal Hip Strength Hip Manual Muscle Testing Left Flexion (L2) 5 Normal Comments Pt sitting Right Flexion (L2) 5 Normal Comments Pt sitting Knee Strength Knee Manual Muscle Testing Left Flexion (S2) 5 Normal Extension (L3) 5 Normal Right Flexion (S2) 5 Normal Extension (L3) 5 Normal Ankle/Foot Strength Ankle and Foot Manual Muscle Testing Left Dorsiflexion (L4) 5 Normal Right Dorsiflexion (L4) 5 Normal PT-OP-Q Treatments Start: 07/27/20 16:14 Freq: Status: Active Protocol: Document 09/06/20 14:16 MB (Rec: 09/06/20 15:27 MB [id number]) Therapeutic Exercises Sitting Exercises BIG sit to stands Equipment Used Sitting on mat, feet on tile Reps/Minutes 5 reps Comments Cues for BIG reach for bringing arms back when standing Side to side Side bilateral Equipment Used Sitting on mat, feet on tile Reps/Minutes 1 rep each side Comments Cues for BIG back leg Forward reach Equipment Used Sitting on mat, feet on tile Reps/Minutes 5 reps Comments Cues to reach forward BIG, BIG feet stance Standing Exercises Side rock and reach Side bilateral Equipment Used Tile Reps/Minutes 1 Comments Performs well Forward rock and reach Side bilateral Equipment Used On tile Reps/Minutes 5 reps Comments Good form Backward step Side bilateral Equipment Used On tile Reps/Minutes 5 reps Comments Cues for BIG hands and wrists Side step Side bilateral Equipment Used On tile Reps/Minutes 3 reps Comments Good form Forward step Side bilateral Equipment Used On tile Reps/Minutes 5 reps Comments Better form today, BIG step back better Gait Training Gait Activity FGA Comments See findings under goals today 6MWT Comments 1721 feet with cues for BIG right arm. BIG right arm swing diminishes with cognitive task Self-Care/Home Management Treatment Education Other Education Extensive education about how to con't with exercises, discussion and education about LSVT DVDs and PT following up about pt questions, re-ed and practice on performance form of BIG exercises, ongoing ed about BIG arm swing, feel free to contact PT for any follow- up questions at d/c, use of LEs and whole body to perform cutting, making bed, donning gloves to con't with BIG movement PT-OP-T Assessment and Plan Start: 07/27/20 16:14 Freq: Status: Active Protocol: Document 09/06/20 14:16 MB (Rec: 09/06/20 15:07 MB [id number]) Physical Therapy Assessment Goals 4 [facility] Goal (LTG) Pt will perform WNLs on a standardized balance test to decrease fall risk by 08/30/20. 09/06/20: FGA score is 26/30 with some gait changes with tandem walking, eyes closed walking, backwards walking and pt likes to hold rail on steps. Romberg EO and EC normal and no LOB with tandem standing and good ankle reaction and so added to HEP. LTG Duration 16 treatments 3 Director Asset Goal (LTG) Pt will perform BIG exercises and functional tasks BID with handouts and I to improve amplitude and quality of movement by 08/30/20. 09/06/20: Pt is performing BIG exercises and functional tasks at home LTG Duration 16 treatments 2 [facility] Goal (LTG) Pt will gait train at least 1700 feet in 6 minutes with cognitive task intermittently to improve gait speed and endurance by 08/30/20. 09/06/20: Pt gait trains 1271 feet with intermittent cognitive task including listing animals in different ecosystems and talking about last episode of favorite show. Her right arm swing does decrease with cognitive task. LTG Duration 16 treatments 1 Director Asset Goal (LTG) Pt will perform at least 20 reps of sit to stands without UE support in 30 sec to improve functional transfers by 08/30/20. 09/06/20: Pt performs 18 sit to stands in 30 sec, which is improvement since progress note LTG Duration 16 treatments Assessment Summary Assessment Pt has progressed towards all goals since starting BIG therapy. These include performance of BIG exercises and functional tasks at home, 6MWT, sit to stands and balance. Pt's course was interrupted when she had a reaction to COVID shot and when PT left town for family emergency but 16 treatments completed and pt and both PTs feel that pt is ready to d/c. She will con't BIG exercises, functional tasks and BIG walking as well as added a Tandem balance exercise to perform to help with ankle strategy for balance. Will d/c PT.
== END 2020-09-21 11:47 | disposition home or self-care (01) ==
LOC: PHYS 14:15
PROVIDERS: PCP Family Medicine; Referring Provider Psychiatry & Neurology Neurology; Visit Provider Psychiatry & Neurology Neurology
DX: G20 Parkinson's disease (principal)
CPT/HCPCS: 97110; 97116; 97161; 97530; 97535

== ENCOUNTER 2021-07-15 13:45 | Outpatient (RCR) | payer MEDICARE, OTHER, SELFPAY ==
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
== END 2021-07-30 08:30 | disposition home or self-care (01) ==
LOC: PHYS 13:45
PROVIDERS: Family Provider Family Medicine; PCP Family Medicine; Referring Provider Family Medicine; Visit Provider Family Medicine
DX: G20 Parkinson's disease (principal)
CPT/HCPCS: 97110; 97112; 97116; 97162; 97530

== ENCOUNTER → 2021-08-24 11:01 | Outpatient (CLI) | payer MEDICARE, OTHER, SELFPAY ==
--- NOTE | 2021-08-24 | DI.MG.S_ITS ---
BILATERAL DIGITAL SCREENING MAMMOGRAM 3D/2D WITH CAD: 08/24/2021 CLINICAL: Routine screening. Family history of breast cancer. Comparison is made to exams dated: 07/17/2020 mammogram - [facility], 06/17/2018 mammogram, and 05/19/2017 mammogram - outside location. The tissue of both breasts is heterogeneously dense. This may lower the sensitivity of mammography. Current study was also evaluated with a Computer Aided Detection (CAD) system. There are benign calcifications in the left breast. No significant masses, calcifications, or other findings are seen in either breast. There has been no significant interval change. IMPRESSION: BENIGN There is no mammographic evidence of malignancy. A 1 year screening mammogram is recommended. This exam was interpreted at Station ID: [id number]. NOTE: For mammograms, a report in lay terms will be sent to the patient. Approximately 15% of breast malignancies will not be visualized mammographically. In the management of a palpable breast mass, a negative mammogram must not discourage biopsy of a clinically suspicious lesion. Electronically Signed By: Mindy childress/levi:08/26/2021 08:40:18 letter sent: Normal Exam ACR BI-RADS Category 2: Benign Finding(s) [id number]
== END ==
PROVIDERS: Family Provider Family Medicine; PCP Family Medicine; Referring Provider Family Medicine; Visit Provider Family Medicine
DX: Z12.31 Encounter for screening mammogram for malignant neoplasm of breast (principal); Z80.3 Family history of malignant neoplasm of breast
CPT/HCPCS: 77063; 77067

== ENCOUNTER 2021-08-28 10:30 | Outpatient (RCR) | payer MEDICARE, OTHER, SELFPAY ==
--- NOTE | 2021-07-25 14:33 | PT.OIE ---
Current Diagnoses Segmental and somatic dysfunction of pelvic region (08/01/21) Urge incontinence (08/01/21) Unspecified urinary incontinence (08/01/21) Past Medical History (Last Updated 07/23/20 @ 16:55 by Lindy Nolasco DO) Anemia Cataracts, bilateral (~2009) Chicken pox Chlamydia Chronic hip pain (~2013) Colon polyps (~1999) Gonorrhea Headache Hearing loss (~2009) Herpes History of urinary incontinence (~2017) Plantar warts Restless leg syndrome Salzmann nodular degeneration Sleep apnea Vertigo (~2018) Vision disorder Visit Care Team Role Provider Type Lindy Nolasco DO Attending Provider Physician Family Provider Primary Care Provider Referring Provider Specialty: Family Practice Address: [address] [place] [address], [facility] Email: [email or web address] Physical Therapy Initial Evaluation PT-OP-A Visit Information Start: 07/25/21 14:40 Freq: Status: Active Protocol: Document 07/25/21 14:41 [facility] (Rec: 07/25/21 15:03 [facility] [id number]) Out-Patient Physical Therapy Visit Information Visit Information Visit Type Initial Evaluation Visit Start Time 14:35 Visit Stop Time 15:15 Total Visit Minutes 40 Visit Number 1 Evaluation Information Evaluation Date 07/25/21 PT-OP-B Current Condition Start: 07/25/21 14:40 Freq: Status: Active Protocol: Document 07/25/21 14:41 [facility] (Rec: 07/25/21 14:57 [facility] [id number]) Current Condition History of Current Condition Onset Date 1.5 yrs Current Complaints pt describes urinary urgency, goes every 15 min, urge incontinence History of Current Condition pt reports she isn't good about drinking water, she feels limited in her activities especially driving activities due to urgeny. She wakes up 2-4 times per night. BM not always daily but doesn 't feel she needs to strain. Trigger that she has a hour drive can make her feel the urge to void. Prior Treatments and Tests Has had right hip pain but stretches help it, Treatment Goals Patient/Caregiver Goals Gails goals include decreasing urinary urgency and frequency and urge incontinence PT-OP-C Subjective Start: 07/25/21 14:40 Freq: Status: Active Protocol: Document 07/25/21 14:41 [facility] (Rec: 07/28/21 15:41 [facility] [id number]) Patient Questionnaires Pelvic Pain and Urgency/Frequency Patient Symptom Scale Pelvic Pain Score 11 PT-OP-I Pelvic Floor Start: 07/25/21 15:00 Freq: Status: Active Protocol: Document 07/25/21 14:41 [facility] (Rec: 07/28/21 15:43 [facility] [id number]) Pelvic Floor Assessment Urine Pelvic Floor Surgery No Urinary Symptoms Urge Sensation,Incomplete Emptying Leakage Size Medium Leakage Cause Urge Other Leakage Causes if pt waits to long to void she will experience leakage Voiding Frequency frequent Nocturia 2-4 Urine Pad Type Panty Liner Pelvic Clock Pelvic Clock 12-3 Atrophy Contraction Ability Voluntary Contraction Weak Voluntary Relaxation Weak Manual Muscle Testing Left 3 Manual Muscle Testing Right 3 Manual Muscle Testing Anterior 2 Manual Muscle Testing Posterior 3 PT-OP-Q Treatments Start: 07/25/21 15:00 Freq: Status: Active Protocol: Document 07/25/21 14:41 [facility] (Rec: 07/25/21 15:03 [facility] [id number]) Therapeutic Exercises Supine Exercises quick pelvic floor contractions Reps/Minutes HEP 10 reps x 2 sec on 2 sec off x 2 sets Self-Care/Home Management Treatment Education Patient Education Home Exercise Program Other Education pt was educated in urge deference technique and bladder retraining. She was started with quick pelvic floor contractions PT-OP-T Assessment and Plan Start: 07/25/21 15:00 Freq: Status: Active Protocol: Document 07/25/21 14:41 [facility] (Rec: 07/28/21 15:50 [facility] [id number]) Physical Therapy Assessment Goals 4 Impairment pt is waking up 2-4 tmes per night to void Short Term Goal (STG) pt is able to decrease her nighttime voids to 2 times per night STG Duration 5 weeks Care Home Goal (LTG) pt is able to decrease her voids to 1 xm per night LTG Duration 8 weeks 3 Impairment Decreased pelvic floor endurance Short Term Goal (STG) Melony is able to sustain a pelvic floor contraction x 10 seconds in supine STG Duration 5 weeks Care Home Goal (LTG) Melony is able to sustain a contraction x10 seconds in standing LTG Duration 8 weeks 2 Impairment pelvic floor weakness Print Washer Goal (LTG) Improve pelvic floor strength to a 4/5 MMT in all aspects of the levator ani LTG Duration 8 weeks 1 Impairment urgency and frequency of urination and pt often has urinary leakage with urgency Print Washer Goal (LTG) pt is educated on urge deference technique and bladder retraining LTG Duration 8 weeks Assessment Summary Assessment Melony is a 65 year old female referred to Physical Therapy with urge incontinence, nocturia 2-4 xms per night and day time urinary frequency. Melony notes her symptoms have progressed over the past year and 1/2. She reports she feels limited with driving and does drive to [employer] every few months. She experiences a great amount of urgency with driving and will leak if she is not able to find a bathroom . With examination today Melony is weak in her anterior pelvic floor as compared to her lateral and posterior jaramillo of the levator ani. She tests 2/5 MMT for the anterior wall and 3/5 MMT for lateral and posterior jaramillo. Physical Therapy Plan Frequency and Duration Frequency of Treatment 1x/Week Duration of Treatment 8 Plan of Care Start Date 07/25/21 Plan of Care End Date 09/19/21 Therapeutic Interventions Therapeutic Interventions Home Exercise Program, Neuromuscular Re-education, Patient/Caregiver Education, Self-Care/Home Management, Therapeutic Exercises Modalities Biofeedback Other Therapeutic Interventions bladder retraining Next Visit Focus/Plan Next Note Type Treatment Note Next Visit Plan review bladder retraining, review bladder diary given to pt today. Begin EMG biofeedback for endurance training of the pelvic floor.
--- NOTE | 2021-07-25 14:34 | PT.OPPOC ---
Physical, Occupational & Speech Therapy At [facility] Current Diagnoses Segmental and somatic dysfunction of pelvic region (08/01/21) Urge incontinence (08/01/21) Unspecified urinary incontinence (08/01/21) Visit Care Team Role Provider Type Lindy Nolasco DO Attending Provider Physician Family Provider Primary Care Provider Referring Provider Specialty: Family Practice Address: [address] [place] [address], [facility] [place], [address] Email: [email or web address] Plan Of Care PT-OP-T Assessment and Plan Start: 07/25/21 15:00 Freq: Status: Active Protocol: Document 07/25/21 14:41 [facility] (Rec: 07/28/21 15:50 [facility] [id number]) Physical Therapy Assessment Goals 4 Impairment pt is waking up 2-4 xms per night to void Short Term Goal (STG) pt is able to decrease her nighttime voids to 2 times per night STG Duration 5 weeks Correction Goal (LTG) pt is able to decrease her voids to 1 xm per night LTG Duration 8 weeks 3 Impairment Decreased pelvic floor endurance Short Term Goal (STG) Melony is able to sustain a pelvic floor contraction x 10 seconds in supine STG Duration 5 weeks Prescriptionist Goal (LTG) Melony is able to sustain a contraction x10 seconds in standing LTG Duration 8 weeks 2 Impairment pelvic floor weakness Correction Goal (LTG) Improve pelvic floor strength to a 4/5 MMT in all aspects of the levator ani LTG Duration 8 weeks 1 Impairment urgency and frequency of urination and pt often has urinary leakage with urgency Correction Goal (LTG) pt is educated on urge deference technique and bladder retraining LTG Duration 8 weeks Assessment Summary Assessment Melony is a 65 year old female referred to Physical Therapy with urge incontinence, nocturia 2-4 xms per night and day time urinary frequency. Melony notes her symptoms have progressed over the past year and 1/2. She reports she feels limited with driving and does drive to [employer] every few months. She experiences a great amount of urgency with driving and will leak if she is not able to find a bathroom . With examination today Melony is weak in her anterior pelvic floor as compared to her lateral and posterior jaramillo of the levator ani. She tests 2/5 MMT for the anterior wall and 3/5 MMT for lateral and posterior jaramillo. Physical Therapy Plan Frequency and Duration Frequency of Treatment 1x/Week Duration of Treatment 8 Plan of Care Start Date 07/25/21 Plan of Care End Date 09/19/21 Therapeutic Interventions Therapeutic Interventions Home Exercise Program, Neuromuscular Re-education, Patient/Caregiver Education, Self-Care/Home Management, Therapeutic Exercises Modalities Biofeedback Other Therapeutic Interventions bladder retraining Next Visit Focus/Plan Next Note Type Treatment Note Next Visit Plan review bladder retraining, review bladder diary given to pt today. Begin EMG biofeedback for endurance training of the pelvic floor. Plan of Care Dates Plan of Care Start Date 07/25/21 Plan of Care End Date 09/19/21 Electronically Signed by: Bobbi Najera, PT 08/01/21 [id number] Please Sign and Return: I have reviewed this Plan of Care and certify that the skilled therapy services above are required to meet the patient?s needs. Physician Signature Date Printed Name and Credentials Clinical Instructor Signature Printed Name and Credentials
--- NOTE | 2021-08-01 15:31 | PT.OTN ---
Current Diagnoses Segmental and somatic dysfunction of pelvic region (08/01/21) Urge incontinence (08/01/21) Unspecified urinary incontinence (08/01/21) Physical Therapy Treatment Note PT-OP-A Visit Information Start: 07/25/21 14:40 Freq: Status: Active Protocol: Document 08/01/21 15:24 [facility] (Rec: 08/01/21 15:31 [facility] [id number]) Out-Patient Physical Therapy Visit Information Visit Information Visit Type Treatment Note Visit Start Time 13:45 Visit Stop Time 14:30 Total Visit Minutes 45 Visit Number 2 PT-OP-B Current Condition Start: 07/25/21 14:40 Freq: Status: Active Protocol: Document 07/25/21 14:41 [facility] (Rec: 07/25/21 14:57 [facility] [id number]) Current Condition History of Current Condition Onset Date 1.5 yrs Current Complaints pt describes urinary urgency, goes every 15 min, urge incontinence History of Current Condition pt reports she isn't good about drinking water, she feels limited in her activities especially driving activities due to urgeny. She wakes up 2-4 times per night. BM not always daily but doesn 't feel she needs to strain. Trigger that she has a hour drive can make her feel the urge to void. Prior Treatments and Tests Has had right hip pain but stretches help it, Treatment Goals Patient/Caregiver Goals Gails goals include decreasing urinary urgency and frequency and urge incontinence PT-OP-C Subjective Start: 07/25/21 14:40 Freq: Status: Active Protocol: Document 08/01/21 15:24 [facility] (Rec: 08/01/21 15:31 [facility] [id number]) OP-PT Subjective Patient Comments Patient Comments pt reports she has been working on her urge deference technique and feels it has been helping her some. PT-OP-I Pelvic Floor Start: 07/25/21 15:00 Freq: Status: Active Protocol: Document 07/25/21 14:41 [facility] (Rec: 07/28/21 15:43 [facility] [id number]) Pelvic Floor Assessment Urine Pelvic Floor Surgery No Urinary Symptoms Urge Sensation,Incomplete Emptying Leakage Size Medium Leakage Cause Urge Other Leakage Causes if pt waits to long to void she will experience leakage Voiding Frequency frequent Nocturia 2-4 Urine Pad Type Panty Liner Pelvic Clock Pelvic Clock 12-3 Atrophy Contraction Ability Voluntary Contraction Weak Voluntary Relaxation Weak Manual Muscle Testing Left 3 Manual Muscle Testing Right 3 Manual Muscle Testing Anterior 2 Manual Muscle Testing Posterior 3 PT-OP-Q Treatments Start: 07/25/21 15:00 Freq: Status: Active Protocol: Document 08/01/21 15:24 [facility] (Rec: 08/01/21 15:31 [facility] [id number]) Therapeutic Exercises Supine Exercises supine ball squeeze with pelvic floor activation Reps/Minutes x 10 reps holding 5 seconds and resting 10 seconds Comments pt found she was better able to feel her anterior pelvic floor with ball pelvic floor long holds Reps/Minutes pt to hold x 10 seconds in supine with a 10 second relaxation quick pelvic floor contractions Reps/Minutes HEP 10 reps x 2 sec on 2 sec off x 2 sets Neuro Re-Education Treatment Other Activities EMG biofeedback Reps/Duration x 15 min Comments pt was educated in endurance training of the levator ani today using EMG biofeedback, the annette template was used to help her with finding all parts of the levator ani. Self-Care/Home Management Treatment Education Patient Education Home Exercise Program Other Education review of urge deference technique, ball squeeze with pelvic floor activation added to HEP to assist pt in finding her anterior pelvic floor PT-OP-T Assessment and Plan Start: 07/25/21 15:00 Freq: Status: Active Protocol: Document 08/01/21 15:24 [facility] (Rec: 08/01/21 15:31 [facility] [id number]) Physical Therapy Assessment Assessment Summary Assessment Melony returns to PT day two of treatment, she has been working on her bladder retraining at home and feels this has been working. She has not felt she was ready to try it with car trips yet. I initiated EMG biofeedback today for neuro awareness of the pelvic floor. Melony was able to toelrate 10 second holds with 10 second relaxation and was given this for a HEP. I did also give her ball squeezes with pelvic floor activation to help her find her anterior pelvic floor as this is the weakest aspect for her. Physical Therapy Plan Frequency and Duration Frequency of Treatment 1x/Week Duration of Treatment 8 Plan of Care Start Date 07/25/21 Plan of Care End Date 09/19/21
--- NOTE | 2021-08-08 17:33 | PT.OTN ---
Current Diagnoses Segmental and somatic dysfunction of pelvic region (08/08/21) Urge incontinence (08/08/21) Unspecified urinary incontinence (08/08/21) Physical Therapy Treatment Note PT-OP-A Visit Information Start: 07/25/21 14:40 Freq: Status: Active Protocol: Document 08/08/21 15:20 [facility] (Rec: 08/08/21 15:50 [facility] [id number]) Out-Patient Physical Therapy Visit Information Visit Information Visit Type Treatment Note Visit Start Time 15:20 Visit Stop Time 16:00 Total Visit Minutes 45 Visit Number 3 PT-OP-B Current Condition Start: 07/25/21 14:40 Freq: Status: Active Protocol: Document 07/25/21 14:41 [facility] (Rec: 07/25/21 14:57 [facility] [id number]) Current Condition History of Current Condition Onset Date 1.5 yrs Current Complaints pt describes urinary urgency, goes every 15 min, urge incontinence History of Current Condition pt reports she isn't good about drinking water, she feels limited in her activities especially driving activities due to urgeny. She wakes up 2-4 times per night. BM not always daily but doesn 't feel she needs to strain. Trigger that she has a hour drive can make her feel the urge to void. Prior Treatments and Tests Has had right hip pain but stretches help it, Treatment Goals Patient/Caregiver Goals Gails goals include decreasing urinary urgency and frequency and urge incontinence PT-OP-C Subjective Start: 07/25/21 14:40 Freq: Status: Active Protocol: Document 08/08/21 15:20 [facility] (Rec: 08/08/21 15:50 [facility] [id number]) OP-PT Subjective Patient Comments Patient Comments pt reports this week has been harder for her to get in her exercises PT-OP-I Pelvic Floor Start: 07/25/21 15:00 Freq: Status: Active Protocol: Document 07/25/21 14:41 [facility] (Rec: 07/28/21 15:43 [facility] [id number]) Pelvic Floor Assessment Urine Pelvic Floor Surgery No Urinary Symptoms Urge Sensation,Incomplete Emptying Leakage Size Medium Leakage Cause Urge Other Leakage Causes if pt waits to long to void she will experience leakage Voiding Frequency frequent Nocturia 2-4 Urine Pad Type Panty Liner Pelvic Clock Pelvic Clock 12-3 Atrophy Contraction Ability Voluntary Contraction Weak Voluntary Relaxation Weak Manual Muscle Testing Left 3 Manual Muscle Testing Right 3 Manual Muscle Testing Anterior 2 Manual Muscle Testing Posterior 3 PT-OP-Q Treatments Start: 07/25/21 15:00 Freq: Status: Active Protocol: Document 08/08/21 15:20 [facility] (Rec: 08/08/21 16:02 [facility] [id number]) Therapeutic Exercises Supine Exercises diaphragmatic breathing Reps/Minutes x 4 min, inhale x 4 seconds and exhale x 6 seconds supine ball squeeze with pelvic floor activation Reps/Minutes x 10 reps holding 5 seconds and resting 10 seconds Comments pt found she was better able to feel her anterior pelvic floor with ball pelvic floor long holds Equipment Used EMG biofeedback Reps/Minutes 12.4 average and max of 22.4 quick pelvic floor contractions Reps/Minutes HEP 10 reps x 2 sec on 2 sec off x 2 sets Self-Care/Home Management Treatment Activities Self-Care/Home Management Activities bladder retraining was reviewed, bladder diary was reviewed, pt was given HEP PT-OP-T Assessment and Plan Start: 07/25/21 15:00 Freq: Status: Active Protocol: Document 08/08/21 15:20 [facility] (Rec: 08/08/21 15:50 [facility] [id number]) Physical Therapy Assessment Assessment Summary Assessment I added in diaphragmatic breathing for Melony to try to help with calming down the nervous system and quieting the bladder. She did well with this. Urge deference technique was reviewed Physical Therapy Plan Frequency and Duration Frequency of Treatment 1x/Week Duration of Treatment 8 Plan of Care Start Date 07/25/21 Plan of Care End Date 09/19/21 Therapeutic Interventions Therapeutic Interventions Home Exercise Program, Neuromuscular Re-education, Patient/Caregiver Education, Self-Care/Home Management, Therapeutic Exercises Modalities Biofeedback Other Therapeutic Interventions bladder retraining Next Visit Focus/Plan Next Note Type Treatment Note Next Visit Plan continue progress pelvic floor endurance training and urge deference technique, review diaphragmatic breathing
--- NOTE | 2021-08-14 13:26 | PT.OTN ---
Current Diagnoses Segmental and somatic dysfunction of pelvic region (08/14/21) Urge incontinence (08/14/21) Unspecified urinary incontinence (08/14/21) Physical Therapy Treatment Note PT-OP-A Visit Information Start: 07/25/21 14:40 Freq: Status: Active Protocol: Document 08/14/21 10:34 [facility] (Rec: 08/14/21 11:18 [facility] [id number]) Out-Patient Physical Therapy Visit Information Visit Information Visit Type Treatment Note Visit Start Time 10:35 Visit Stop Time 11:15 Total Visit Minutes 40 Visit Number 4 PT-OP-B Current Condition Start: 07/25/21 14:40 Freq: Status: Active Protocol: Document 07/25/21 14:41 [facility] (Rec: 07/25/21 14:57 [facility] [id number]) Current Condition History of Current Condition Onset Date 1.5 yrs Current Complaints pt describes urinary urgency, goes every 15 min, urge incontinence History of Current Condition pt reports she isn't good about drinking water, she feels limited in her activities especially driving activities due to urgeny. She wakes up 2-4 times per night. BM not always daily but doesn 't feel she needs to strain. Trigger that she has a hour drive can make her feel the urge to void. Prior Treatments and Tests Has had right hip pain but stretches help it, Treatment Goals Patient/Caregiver Goals Gails goals include decreasing urinary urgency and frequency and urge incontinence PT-OP-C Subjective Start: 07/25/21 14:40 Freq: Status: Active Protocol: Document 08/14/21 10:34 [facility] (Rec: 08/14/21 11:18 [facility] [id number]) OP-PT Subjective Patient Comments Patient Comments pt reports she feels like she has been at home and has been able to delay her urge by 1 hour. She has been voiding every 2-3 hours. pt is still waking up two times at night. She had one leak this week while racing to the bathroom PT-OP-I Pelvic Floor Start: 07/25/21 15:00 Freq: Status: Active Protocol: Document 07/25/21 14:41 [facility] (Rec: 07/28/21 15:43 [facility] [id number]) Pelvic Floor Assessment Urine Pelvic Floor Surgery No Urinary Symptoms Urge Sensation,Incomplete Emptying Leakage Size Medium Leakage Cause Urge Other Leakage Causes if pt waits to long to void she will experience leakage Voiding Frequency frequent Nocturia 2-4 Urine Pad Type Panty Liner Pelvic Clock Pelvic Clock 12-3 Atrophy Contraction Ability Voluntary Contraction Weak Voluntary Relaxation Weak Manual Muscle Testing Left 3 Manual Muscle Testing Right 3 Manual Muscle Testing Anterior 2 Manual Muscle Testing Posterior 3 PT-OP-Q Treatments Start: 07/25/21 15:00 Freq: Status: Active Protocol: Document 08/14/21 10:34 [facility] (Rec: 08/14/21 11:18 [facility] [id number]) Therapeutic Exercises Supine Exercises piriformis stretch Reps/Minutes hold 1-2 minutes diaphragmatic breathing Reps/Minutes x 4 min, inhale x 4 seconds and exhale x 6 seconds supine ball squeeze with pelvic floor activation Reps/Minutes x 10 reps pelvic floor long holds Reps/Minutes 18.8 uv and max of 39.6 quick pelvic floor contractions Reps/Minutes x 10 reps Sidelying Exercises clam shells Reps/Minutes 2 x 10 reps Other Exercises sit to stand with pelvic floor and TA activiation Reps/Minutes x 10 reps PT-OP-T Assessment and Plan Start: 07/25/21 15:00 Freq: Status: Active Protocol: Document 08/14/21 10:34 [facility] (Rec: 08/14/21 13:26 [facility] [id number]) Physical Therapy Assessment Assessment Summary Assessment Melony did better today with her pelvic floor endurance holds and had improved facilitation on EMG biofeedback. Worked on sit to stands and her knees tend to IR so I did add in hip ER with clam shells Physical Therapy Plan Frequency and Duration Frequency of Treatment 1x/Week Duration of Treatment 8 Plan of Care Start Date 07/25/21 Plan of Care End Date 09/19/21 Next Visit Focus/Plan Next Note Type Treatment Note Next Visit Plan continue progress pelvic floor endurance training and urge deference technique, review diaphragmatic breathing
--- NOTE | 2021-08-28 13:31 | PT.OTN ---
Current Diagnoses Segmental and somatic dysfunction of pelvic region (08/28/21) Urge incontinence (08/28/21) Unspecified urinary incontinence (08/28/21) Physical Therapy Treatment Note PT-OP-A Visit Information Start: 07/25/21 14:40 Freq: Status: Active Protocol: Document 08/28/21 10:39 [facility] (Rec: 08/28/21 11:17 REPLACED BY [facility] [id number]) Out-Patient Physical Therapy Visit Information Visit Information Visit Type Treatment Note Visit Start Time 10:35 Visit Stop Time 11:15 Total Visit Minutes 40 Visit Number 5 PT-OP-B Current Condition Start: 07/25/21 14:40 Freq: Status: Active Protocol: Document 07/25/21 14:41 AM[facility] (Rec: 07/25/21 14:57 REPLACED BY [facility] [id number]) Current Condition History of Current Condition Onset Date 1.5 yrs Current Complaints pt describes urinary urgency, goes every 15 min, urge incontinence History of Current Condition pt reports she isn't good about drinking water, she feels limited in her activities especially driving activities due to urgeny. She wakes up 2-4 times per night. BM not always daily but doesn 't feel she needs to strain. Trigger that she has a hour drive can make her feel the urge to void. Prior Treatments and Tests Has had right hip pain but stretches help it, Treatment Goals Patient/Caregiver Goals Gails goals include decreasing urinary urgency and frequency and urge incontinence PT-OP-C Subjective Start: 07/25/21 14:40 Freq: Status: Active Protocol: Document 08/28/21 10:39 AM[facility] (Rec: 08/28/21 11:17 REPLACED BY [facility] [id number]) OP-PT Subjective Patient Comments Patient Comments pt reports she has been using the urge technique to help calm down her urgency. SHe is feeling independent with her HEP and feels ready to work on her own Patient Reported Progress Improving PT-OP-I Pelvic Floor Start: 07/25/21 15:00 Freq: Status: Active Protocol: Document 07/25/21 14:41 AM[facility] (Rec: 07/28/21 15:43 REPLACED BY [facility] [id number]) Pelvic Floor Assessment Urine Pelvic Floor Surgery No Urinary Symptoms Urge Sensation,Incomplete Emptying Leakage Size Medium Leakage Cause Urge Other Leakage Causes if pt waits to long to void she will experience leakage Voiding Frequency frequent Nocturia 2-4 Urine Pad Type Panty Liner Pelvic Clock Pelvic Clock 12-3 Atrophy Contraction Ability Voluntary Contraction Weak Voluntary Relaxation Weak Manual Muscle Testing Left 3 Manual Muscle Testing Right 3 Manual Muscle Testing Anterior 2 Manual Muscle Testing Posterior 3 PT-OP-Q Treatments Start: 07/25/21 15:00 Freq: Status: Active Protocol: Document 08/28/21 10:39 REPLACED BY [facility] (Rec: 08/28/21 11:17 REPLACED BY [facility] [id number]) Therapeutic Exercises Supine Exercises piriformis stretch Reps/Minutes hold 1-2 minutes diaphragmatic breathing Reps/Minutes x 4 min, inhale x 4 seconds and exhale x 6 seconds supine ball squeeze with pelvic floor activation Reps/Minutes x 10 reps pelvic floor long holds Reps/Minutes 26.1 uv max of 43 quick pelvic floor contractions Reps/Minutes x 10 reps Comments 38.7 uv Sidelying Exercises clam shells Side bilateral Reps/Minutes 2 x 10 reps Other Exercises sit to stand with pelvic floor and TA activiation Other Exercise Name HEP PT-OP-T Assessment and Plan Start: 07/25/21 15:00 Freq: Status: Active Protocol: Document 08/28/21 10:39 REPLACED BY [facility] (Rec: 08/28/21 11:17 REPLACED BY [facility] [id number]) Physical Therapy Assessment Goals 4 Impairment pt is waking up 2-4 tmes per night to void Short Term Goal (STG) pt is able to decrease her nighttime voids to 2 times per night GOAL MET STG Duration 5 weeks Senior Care Goal (LTG) pt is able to decrease her voids to 1 xm per night LTG Duration 8 weeks 3 Impairment Decreased pelvic floor endurance Short Term Goal (STG) Melony is able to sustain a pelvic floor contraction x 10 seconds in supine GOAL MET STG Duration 5 weeks Senior Care Goal (LTG) Melony is able to sustain a contraction x10 seconds in standing pt is working on progressing pelvic floor contractions to standing LTG Duration 8 weeks 2 Impairment pelvic floor weakness Load Builder Goal (LTG) Improve pelvic floor strength to a 4/5 MMT in all aspects of the levator ani GOAL MET LTG Duration 8 weeks 1 Impairment urgency and frequency of urination and pt often has urinary leakage with urgency Senior Care Goal (LTG) pt is educated on urge deference technique and bladder retraining GOAL MET LTG Duration 8 weeks Assessment Summary Assessment Melony has made steady progress with pelvic floor PT and is feeling independent with her HEP at this time. She has more than doubled her pelvic floor strength and has good endruance of her pelvic floor now to sustain a contraction for 10 seconds. She does still wake 2 times at night to void and when cold in the car notes it is harder to delay the need to void. She will continue to work on her exercises and will be discharged to a [facility] Physical Therapy Plan Discharge Physical Therapy Discharge Reasons Goals Met Discharge Comments overall pt has made great progress towards her goals
== END 2021-08-29 11:02 ==
LOC: PHYS 10:30
PROVIDERS: Family Provider Family Medicine; PCP Family Medicine; Referring Provider Family Medicine; Visit Provider Family Medicine
DX: N39.41 Urge incontinence (principal); M99.05 Segmental and somatic dysfunction of pelvic region
CPT/HCPCS: 97110; 97112; 97161; 97535

== ENCOUNTER → 2022-04-14 07:40 | Outpatient (CLI) | payer MEDICARE, OTHER, SELFPAY ==
--- NOTE | 2022-04-14 07:45 | DI.RAD.S_ITS ---
PROCEDURE: XR SACRUM COCCYX MIN 2V INDICATIONS: coccyx pain TECHNIQUE: 3 views of the sacrum and coccyx acquired. COMPARISON: None. FINDINGS: Bones: Acute appearing mildly displaced transverse fracture of the lower sacrum, possibly S5, or upper coccyx. Soft tissues: Visualized bowel gas pattern is normal. Coarse calcification projecting over the left pelvis could represent a calcified fibroid but is nonspecific. IMPRESSION: Acute mildly displaced fracture of the lower sacrum/upper coccyx. Dictated by: Ki Dill M.D. on 04/14/2022 at 8:02 Approved by: Ki Dill M.D. on 04/14/2022 at 8:07
== END ==
PROVIDERS: Family Provider Family Medicine; PCP Family Medicine; Referring Provider Nurse Practitioner Family; Visit Provider Nurse Practitioner Family
DX: S32.2XXA Fracture of coccyx, initial encounter for closed fracture (principal); M53.3 Sacrococcygeal disorders, not elsewhere classified; W18.30XA Fall on same level, unspecified, initial encounter
CPT/HCPCS: 72220

== ENCOUNTER → 2022-07-01 12:37 | Outpatient (CLI) | payer MEDICARE, OTHER, SELFPAY | PROVIDERS: Family Provider Family Medicine; PCP Family Medicine; Referring Provider Family Medicine; Visit Provider Family Medicine | DX: Z78.0 Asymptomatic menopausal state (principal); R63.6 Underweight; Z13.820 Encounter for screening for osteoporosis | CPT/HCPCS: 77080 ==

== ENCOUNTER → 2022-08-01 16:21 | Outpatient (CLI) | payer MEDICARE, OTHER, SELFPAY ==
[2022-08-01 17:55] LABS: Add Manual Diff / Slide Review NO; Basophils Absolute Auto 0 /uL (0-100); Basophils Percent Auto 0.7 % (0-2); Eosinophils Absolute Auto 100 /uL (0-450); Eosinophils Percent Auto 2.4 % (2-4); Hematocrit 33.1 % (36-46); Hemoglobin 11.2 g/dL (12.0-16.0); Lymphocytes Absolute Auto 1200 /uL (1100-4500); Lymphocytes Percent Auto 26.4 % (25-40); Mean Corpuscular HGB Conc 33.8 % (30-36); Mean Corpuscular Hemoglobin 30.1 PG (26-34); Monocytes Absolute Auto 400 /uL (0-900); Monocytes Percent Auto 8.7 % (3-14); Neutrophils Absolute Auto 2900 /uL (1500-7000); Neutrophils Percent Auto 61.8 % (50-75); Platelet Count 157 X10^3/uL (150-400); Red Blood Cell Count 3.72 X10^6/uL (4.0-5.2); Red Cell Distribution Width 14.1 % (11.6-14.8); White Blood Cell Count 4.7 X10^3/uL (4.5-11.0)
[2022-08-01 18:14] LABS: Alanine Aminotransferase 10 IU/L (<35); Albumin 4.3 g/dL (3.5-5.0); Albumin Globulin Ratio 1.7 (1.0-2.8); Alkaline Phosphatase 53 U/L (38-126); Aspartate Aminotransferase 23 IU/L (14-36); BUN Creatinine Ratio 27.9 (6-22); Bilirubin Total 0.4 mg/dL (0.2-1.3); Blood Urea Nitrogen 24 mg/dL (7-17); Calcium 9.6 mg/dL (8.4-10.2); Carbon Dioxide 28 mmol/L (22-32); Chloride 103 mmol/L (98-107); Cholesterol 182 mg/dL (140-199); Estimated Glomerular Filt Rate > 60 mL/min (>60); Globulin 2.6 g/dL (1.7-4.1); Glucose 99 mg/dL (80-110); HDL Cholesterol 71 mg/dL (40-60); HEMOLYSIS < 15 (0-50); LDL Cholesterol Calculated 82 mg/dL (<100); Potassium 3.9 mmol/L (3.4-5.1); Sodium 141 mmol/L (137-145); Total Protein 6.9 g/dL (6.3-8.2); Triglycerides 145 mg/dL (35-150)
== END ==
PROVIDERS: Family Provider Family Medicine; PCP Family Medicine; Referring Provider Family Medicine; Visit Provider Family Medicine
DX: R63.6 Underweight (principal); Z13.220 Encounter for screening for lipoid disorders
CPT/HCPCS: 36415; 80053; 80061; 84443; 85025

== ENCOUNTER → 2022-09-30 08:24 | Outpatient (CLI) | payer MEDICARE, OTHER, SELFPAY ==
--- NOTE | 2022-09-30 | DI.MG.S_ITS ---
BILATERAL DIGITAL SCREENING MAMMOGRAM 3D/2D WITH CAD: 09/30/2022 CLINICAL: Routine screening. Family history of breast cancer. Comparison is made to exams dated: 08/24/2021 mammogram, 07/17/2020 mammogram - [facility], and 06/17/2018 mammogram - outside location. Both breasts are extremely dense, which lowers the sensitivity of mammography (category d />75% glandular tissue). Current study was also evaluated with a Computer Aided Detection (CAD) system. There is possible architectural distortion in the left breast at 1 o'clock anterior depth. No other significant masses, calcifications, or other findings are seen in either breast. IMPRESSION: INCOMPLETE: NEEDS ADDITIONAL IMAGING EVALUATION The possible architectural distortion in the left breast is indeterminate. Additional views with possible ultrasound are recommended. Based on Tyrer-Cuzick model (a risk assessment model), the patient's lifetime risk is 26.6% and her 10 year risk is 15.7%. If a patient has an elevated risk, a more comprehensive evaluation should be considered and/or a referral to a genetic counselor. The [place] [employer], [employer], and NCCN Guidelines advise the consideration of Breast MRI as an adjunct to screening mammography in patients whose Lifetime risk to develop breast cancer is 20% or higher. This exam was interpreted at Station ID: [id number]. NOTE: For mammograms, a report in lay terms will be sent to the patient. Approximately 15% of breast malignancies will not be visualized mammographically. In the management of a palpable breast mass, a negative mammogram must not discourage biopsy of a clinically suspicious lesion. Electronically Signed By: Mattie Sanchez M.D. lk/:09/30/2022 08:53:23 letter sent: Additional Imaging Needed ACR BI-RADS Category 0: Incomplete [id number]
== END ==
PROVIDERS: Family Provider Family Medicine; PCP Family Medicine; Referring Provider Family Medicine; Visit Provider Family Medicine
DX: Z12.31 Encounter for screening mammogram for malignant neoplasm of breast (principal); Z80.3 Family history of malignant neoplasm of breast
CPT/HCPCS: 77063; 77067

== ENCOUNTER → 2022-10-16 09:27 | Outpatient (CLI) | payer MEDICARE, OTHER, SELFPAY ==
--- NOTE | 2022-10-16 09:28 | DI.MG.S_ITS ---
UNILATERAL LEFT DIGITAL DIAGNOSTIC MAMMOGRAM 3D/2D WITH ADDITIONAL VIEWS: 10/16/2022 CLINICAL: Additional evaluation requested from prior study. Comparison is made to exams dated: 09/30/2022 mammogram, 08/24/2021 mammogram, and 07/17/2020 mammogram - [facility]. The left breast is extremely dense, which lowers the sensitivity of mammography (category d />75% glandular tissue). There is possible architectural distortion in the left breast at 1 o'clock anterior depth. This is not seen in additional views. No other significant masses or calcifications are seen in the breast. IMPRESSION: INCOMPLETE: NEEDS ADDITIONAL IMAGING EVALUATION The possible architectural distortion in the left breast is indeterminate. A second look with ultrasound is recommended and will immediately follow. Based on Tyrer-Cuzick model (a risk assessment model), the patient's lifetime risk is 26.6% and her 10 year risk is 15.7%. If a patient has an elevated risk, a more comprehensive evaluation should be considered and/or a referral to a genetic counselor. The [place] [employer], [employer], and NCCN Guidelines advise the consideration of Breast MRI as an adjunct to screening mammography in patients whose Lifetime risk to develop breast cancer is 20% or higher. This exam was interpreted at Station ID: [id number]. NOTE: For mammograms, a report in lay terms will be sent to the patient. Approximately 15% of breast malignancies will not be visualized mammographically. In the management of a palpable breast mass, a negative mammogram must not discourage biopsy of a clinically suspicious lesion. Electronically Signed By: Neri Smith M.D. slc/:10/16/2022 10:02:02 ACR BI-RADS Category 0: Incomplete [id number]
--- NOTE | 2022-10-16 09:28 | DI.US.S_ITS ---
LIMITED ULTRASOUND OF LEFT BREAST: 10/16/2022 CLINICAL: Patient returns today to evaluate a focal asymmetry in the left breast. Comparison is made to exams dated: 10/16/2022 mammogram, 09/30/2022 mammogram, and 08/24/2021 mammogram - [facility]. Color flow and real-time ultrasound of the left breast 11-1 o'clock region were performed. Gatica scale images of the real-time examination were reviewed. No significant abnormalities were seen sonographically in the left breast. IMPRESSION: NEGATIVE There is no sonographic evidence of malignancy. A 1 year screening mammogram is recommended. Exam findings were conveyed to the patient. This exam was interpreted at Station ID: [id number]. Electronically Signed By: Neri Smith M.D. slc/:10/16/2022 10:58:51 letter sent: Normal Exam Ultrasound BI-RADS: 1 Negative
== END ==
PROVIDERS: Family Provider Family Medicine; PCP Family Medicine; Referring Provider Family Medicine; Visit Provider Family Medicine
DX: R92.8 Other abnormal and inconclusive findings on diagnostic imaging of breast (principal)
CPT/HCPCS: 76642; 77065; G0279

== ENCOUNTER 2022-11-18 12:43 | Day surgery (SDC) | payer MEDICARE, OTHER, SELFPAY ==
[2022-11-18 13:12] VITALS: BMI 18.6
[2022-11-18 13:31] VITALS: BP 96/56; PULSE 96; RESP 16; TEMP 36.2; O2SAT 96
[2022-11-18] MEDS: LACTATED RINGERS 1,000 ML 200 ML IV (13:38)
--- NOTE | 2022-11-18 14:03 | P.HP_ITS ---
History of Present Illness History of Present Illness Date Patient Seen: 11/18/22 Time Patient Seen: 14:03 Chief complaint: [facility] [place] Narrative: 66-year-old woman brother has a history of colon cancer here for screening colonoscopy. Last colonoscopy was approximately 5 years ago and normal. No nausea, vomiting, abdominal pain, loss of appetite, unexplained weight loss, change in bowel habits, or blood per rectum. [facility] Medical History Anemia Cataracts, bilateral (~2009) Chicken pox Chlamydia Chronic hip pain (~2013) Colon polyps (~1999) Gonorrhea Headache Hearing loss (~2009) Herpes History of urinary incontinence (~2017) Plantar warts Restless leg syndrome Salzmann nodular degeneration Sleep apnea Underweight Vertigo (~2018) Vision disorder Family History Father History of heart disease Mother Alzheimer's disease Brother Cancer Sister Dementia Breast cancer Grandmother Cancer Other Colon polyps Social History marital status: number of children: 0 household members: friend(s) and other lives independently: Yes caregiver/support person: No occupational status: employed Smoking Status: Never smoker alcohol intake: current substance use type: does not use Meds Home Medications and Allergies Home Medications Medication Instructions Recorded Confirmed Type carbidopa ER 25 mg-levodopa 100 mg 1 tab PO BID 06/11/20 11/18/22 History tablet,extended release multivitamin (Multiple Vitamins 1 tab PO DAILY 06/11/20 11/18/22 History tablet) naltrexone 4.5 mg PO BEDTIME 11/17/22 11/18/22 History Vitamin D3 5,000 unit PO 11/18/22 History Allergies Allergy/AdvReac Type Severity Reaction Status Date / Time No Known Drug Allergies Allergy Verified 11/18/22 13:07 Exam Vital Signs (past 8 hours): - 11/18/22 13:31 Temperature 97.2 F L Pulse Rate 96 H Respiratory Rate 16 Blood Pressure 96/56 L Pulse Oximetry 96 Oxygen Delivery Method Room Air Oxygen Delivery Method Room Air Narrative Exam Narrative: General thin adult woman alert oriented no acute distress Assessment & Plan Assessment and plan (1) Family history of colon cancer: Status: Acute Assessment & Plan narrative: The patient requires colorectal screening and colonoscopy is recommended. Technical details were discussed. Risks, benefits, alternatives explained. Risks including but not limited to myocardial infarction, aspiration, bleeding, pain, missed lesion, incomplete examination, need for further radiographic studies, colonic perforation, and need for major abdominal surgery were discussed. All questions were answered to their satisfaction, and they are in agreement with this plan.
[2022-11-18 14:39] VITALS: BP 102/54; PULSE 72; RESP 12; TEMP 36.1; O2SAT 95
[2022-11-18 14:44] VITALS: PULSE 71; RESP 14; O2SAT 96
--- NOTE | 2022-11-18 14:45 | P.OP.COLON_ITS ---
Operative Date/Time/Diagnoses Date of procedure: 11/18/22 Time of procedure: 14:45 Pre-op diagnosis: Family history of colon cancer Post-op diagnosis: same Procedure & Clinicians Study performed: Colonoscopy Same procedure as scheduled: Yes Indications: 66-year-old woman family history of colon cancer here for screening colonoscopy Surgeon: Deven Small Procedure Notes Procedure in detail: The history and physical was performed/updated and the patient is ASA class is 2. The procedure was discussed in detail with the patient. Potential risks complications including infection, bleeding, missed diagnosis, perforation, need for surgery, and were explained. Their questions were answered and informed consent was obtained. Patient was brought to the procedure room and placed standard monitoring equipment. The patient's vital signs were monitored continuously throughout the entire procedure. Prior to starting time-out was performed. The patient was placed in the left lateral recumbent position. Procedural sedation was a dministered by anesthesia. Examination began with a thorough inspection of the perianal area there was no evidence of fissures, fistulae, external hemorrhoids or cutaneous malignancy. The colonoscopy scope was then placed into the anal canal and was advanced to the cecum, which was identified by the ileocecal valve, the appendiceal orifice and the confluence of the taenia. The scope was then slowly withdrawn examining colon thoroughly in all directions, irrigating it of any residual stool. No masses or polyps. Mild diverticulosis of the sigmoid colon The patient tolerated the procedure well. They will be discharged once criteria are met. The prep was of good/excellent quality. The withdrawl time was 6 minutes. Impression: Normal colonoscopy Post-procedure Recommendations: Colonoscopy in 5 years Disposition: same day surgery
[2022-11-18 14:49] VITALS: BP 114/65; PULSE 78; RESP 13; TEMP 36.3; O2SAT 99
[2022-11-18 14:55] VITALS: BP 114/65; PULSE 80; RESP 13; O2SAT 98
== END 2022-11-18 15:22 | disposition home or self-care (01) ==
PROVIDERS: Family Provider Family Medicine; PCP Family Medicine; Referring Provider Surgery; Visit Provider Surgery
PROC: 0DJD8ZZ Inspection of Lower Intestinal Tract, Via Natural or Artificial Opening Endoscopic (ICD-10-PCS; CPT 45378; principal; 2022-11-18 13:45)
DX: Z12.11 Encounter for screening for malignant neoplasm of colon (principal); Z80.0 Family history of malignant neoplasm of digestive organs; K57.30 Diverticulosis of large intestine without perforation or abscess without bleeding
CPT/HCPCS: G0105; J2704

== ENCOUNTER → 2024-05-10 15:51 | Outpatient (CLI) | payer MEDICARE, OTHER, SELFPAY ==
--- NOTE | 2024-05-10 15:53 | DI.MRI.S_ITS ---
PROCEDURE: MR CERVICAL SPINE WO CON INDICATIONS: urinary incontinence TECHNIQUE: Noncontrast sagittal T1 spin echo and T2 fast spin echo, sagittal STIR, foraminal oblique sagittal T2 fast spin echo, and axial gradient echo or T2 fast spin echo through the cervical spine. COMPARISON: None. FINDINGS: Image quality: Excellent. Alignment and Curvature: There is mild cervical straightening with trace retrolisthesis of C5 on C6. Bone Marrow: Marrow demonstrates normal overall signal. Spinal Cord: Visualized spinal cord has normal size and signal. No cerebellar tonsillar herniation. Paraspinous Soft Tissues: No paravertebral masses. Prevertebral soft tissues are normal in thickness. Discs: Moderate desiccation C5-6 and to a lesser degree C6-7. C2-C3: No disc bulge, spinal stenosis or foraminal narrowing. C3-C4: Minimal disc bulge without spinal stenosis. Moderate left and right foraminal narrowing with uncovertebral hypertrophy. C4-C5: Mild disc bulge with posterior central protrusion. No foraminal narrowing. C5-C6: Mild disc bulge with effacement of the anterior thecal sac. No foraminal narrowing. C6-C7: Mild disc bulge bulge without spinal stenosis. Minimal to mild right foraminal narrowing uncovertebral hypertrophy. C7-T1: No disc bulge, spinal stenosis or foraminal narrowing. IMPRESSION: Scattered degenerative changes including disc bulges and foraminal narrowing most severe at C3-4. Dictated by: Jovita Rai M.D. on 05/10/2024 at 20:52 Approved by: Jovita Rai M.D. on 05/10/2024 at 21:13
--- NOTE | 2024-05-10 15:54 | DI.MRI.S_ITS ---
PROCEDURE: MR LUMBAR SPINE WO CON INDICATIONS: urinary incontinence TECHNIQUE: Noncontrast sagittal T1 spin echo and T2 fast echo, sagittal STIR, and T2 fast spin echo through the lumbar spine. In cases with scoliosis, additional coronal T2 fast spin echo may be performed. COMPARISON: [facility], MR, MR CERVICAL SPINE WO CON, 05/10/2024, 16:24. FINDINGS: Image quality: Excellent. Alignment and Curvature: There is normal bony alignment. Bone Marrow: Marrow is of normal overall signal. No acute vertebral body compression fractures. Spinal Cord: Conus medullaris terminates at the L1-L2 level. Visualized cord demonstrates normal signal and size. Paraspinous Soft Tissues: No paravertebral masses. This patient has transitional lumbar anatomy. For the purposes of this examination, the level with the last visualized pair of ribs is considered to be T12. By this numbering scheme, there is a transitional disc seen at the S1-S2 level. T12-L1: Normal appearance. L1-L2: Normal appearance. L2-L3: The disc height and disk signal are well-preserved. Mild disc bulge is seen, which is eccentric to the left. Mild facet joint hypertrophy is seen. There is mild left-sided neural foraminal narrowing. No right-sided neural foraminal narrowing is seen. No central canal narrowing is seen. L3-L4: Mild loss of disc height is seen. Loss of disc signal is seen. Mild to moderate disc bulge is seen. Mild to moderate facet hypertrophy is seen. There is at least moderate right-sided neural foraminal narrowing, with minimal left-sided neural foraminal narrowing. Minimal central canal narrowing is seen. L4-L5: The disc height is well-preserved. Loss of disc signal is seen at this level. Mild disc bulge is seen, with a mild central disc protrusion. There is at least moderate right-sided and moderate left-sided facet hypertrophy. Moderate bilateral neural foraminal narrowing is seen. Mild central canal narrowing is seen. L5-S1: Moderate loss of disc height is seen. Loss of disc signal is seen. Moderate disc bulge is seen, which is eccentric to the left. There is a focal annular fissure seen posteriorly. Bridging endplate osteophytes can be seen on the left. Mild facet joint hypertrophy is seen. There is at least moderate left-sided neural foraminal narrowing, with a degree of compression upon the exiting left L5 nerve root, as on series 4, image 12. No significant right-sided neural foraminal narrowing is seen. No central canal narrowing is seen. S1-S2: There is a transitional, rudimentary disc seen at this level. Tarlov cysts (perineural cysts) can be seen involving the sacrum, centered at the S2-S3 level. IMPRESSION: Multiple levels of lumbar spine degenerative change can be seen, which are worst at the L5-S1 level. Dictated by: Polo Paul M.D. on 05/11/2024 at 12:31 Approved by: Polo Paul M.D. on 05/11/2024 at 12:35
== END ==
PROVIDERS: PCP Student in an Organized Health Care Education/Training Program; Referring Provider Internal Medicine; Visit Provider Internal Medicine
DX: M48.02 Spinal stenosis, cervical region; M48.061 Spinal stenosis, lumbar region without neurogenic claudication; M48.07 Spinal stenosis, lumbosacral region; M47.812 Spondylosis without myelopathy or radiculopathy, cervical region; M47.816 Spondylosis without myelopathy or radiculopathy, lumbar region; M47.817 Spondylosis without myelopathy or radiculopathy, lumbosacral region; M50.322 Other cervical disc degeneration at C5-C6 level; M51.369 Other intervertebral disc degeneration, lumbar region without mention of lumbar back pain or lower extremity pain; M51.379 Other intervertebral disc degeneration, lumbosacral region without mention of lumbar back pain or lower extremity pain; M50.221 Other cervical disc displacement at C4-C5 level; M51.26 Other intervertebral disc displacement, lumbar region; M51.27 Other intervertebral disc displacement, lumbosacral region; R32 Unspecified urinary incontinence; R20.2 Paresthesia of skin; G96.191 Perineural cyst
CPT/HCPCS: 72141; 72148

== ENCOUNTER → 2024-05-20 16:27 | Outpatient (CLI) | payer MEDICARE, OTHER, SELFPAY ==
--- NOTE | 2024-05-20 16:28 | DI.MG.S_ITS ---
BILATERAL DIGITAL SCREENING MAMMOGRAM 3D/2D WITH CAD: 05/20/2024 CLINICAL: Routine screening. Family history of breast cancer. Comparison is made to exams dated: 09/30/2022 mammogram, 08/24/2021 mammogram, and 07/17/2020 mammogram - [facility]. The breasts are extremely dense, which lowers the sensitivity of mammography (category d />75% glandular tissue). Current study was also evaluated with a Computer Aided Detection (CAD) system. No significant masses, calcifications, or other findings are seen in either breast. There has been no significant interval change. IMPRESSION: NEGATIVE There is no mammographic evidence of malignancy. A 1 year screening mammogram is recommended. Based on Tyrer-Cuzick model (a risk assessment model), the patient's lifetime risk is 24.1% and her 10 year risk is 16.0%. If a patient has an elevated risk, a more comprehensive evaluation should be considered and/or a referral to a genetic counselor. The [place] [employer], [place], and NCCN Guidelines advise the consideration of Breast MRI as an adjunct to screening mammography in patients whose Lifetime risk to develop breast cancer is 20% or higher. This exam was interpreted at Station ID: [id number]. NOTE: For mammograms, a report in lay terms will be sent to the patient. Approximately 15% of breast malignancies will not be visualized mammographically. In the management of a palpable breast mass, a negative mammogram must not discourage biopsy of a clinically suspicious lesion. Electronically Signed By: Venancio sauer/levi:05/23/2024 07:28:41 letter sent: Normal Exam ACR BI-RADS Category 1: Negative
== END ==
LOC: MAMMO 16:28
PROVIDERS: PCP Student in an Organized Health Care Education/Training Program; Referring Provider Student in an Organized Health Care Education/Training Program; Visit Provider Student in an Organized Health Care Education/Training Program
DX: Z12.31 Encounter for screening mammogram for malignant neoplasm of breast (principal); Z80.3 Family history of malignant neoplasm of breast; R92.343 Mammographic extreme density, bilateral breasts
CPT/HCPCS: 77063; 77067